=== PATIENT | female | born 1930 | race Caucasian/White ===

== ENCOUNTER 2017-06-12 10:18 | Emergency (ER) | payer MEDICARE, OTHER ==
[2017-06-12 11:08] LABS: BASOPHILS # (AUTO) 0.1 10^3/uL (0.0-0.1); EOSINOPHILS # (AUTO) 0.1 10^3/uL (0.0-0.7); EOSINOPHILS % (AUTO) 0.9 %; HGB - HEMOGLOBIN 14.2 g/dL (12.0-16.0); LYMPHOCYTES # (AUTO) 1.4 10^3/uL (1.5-3.5); LYMPHOCYTES % (AUTO) 21.3 %; MEAN CORPUSCULAR HEMOGLOBIN 30.7 pg (27.0-31.0); MEAN CORPUSCULAR HGB CONC 33.3 g/dL (32.0-36.0); MEAN CORPUSCULAR VOLUME 92.2 fL (81.0-99.0); MEAN PLATELET VOLUME 7.9 fL (7.9-10.8); MONOCYTES # (AUTO) 0.6 10^3/uL (0.0-1.0); MONOCYTES % (AUTO) 9.5 %; NEUTROPHILS # (AUTO) 4.5 10^3/uL (1.5-6.6); NEUTROPHILS % (AUTO) 67.3 %; PLT - PLATELET COUNT 275 10^3/uL (130-450); RED BLOOD COUNT 4.63 10^6/uL (4.20-5.40); RED CELL DISTRIBUTION WIDTH 13.7 % (12.0-15.0); WHITE BLOOD COUNT 6.7 x10^3/uL (4.8-10.8)
[2017-06-12 11:21] LABS: ALBUMIN 4.9 g/dL (3.2-5.5); ALBUMIN/GLOBULIN RATIO 1.6 (1.0-2.2); BILIRUBIN,TOTAL 0.8 mg/dL (0.2-1.0); CALCIUM 9.9 mg/dL (8.5-10.3); CREATININE 1.1 mg/dL (0.4-1.0); TOTAL PROTEIN 7.9 g/dL (6.7-8.2)
--- NOTE | 2017-06-12 11:21 | ED Physician Documentation ---
History of Present Illness - Stated complaint Stated Complaint: CHEST PX/BK PX - Chief complaint Chief Complaint: General - History obtained from History obtained from: Patient - History of Present Illness Timing: How many days ago (4) - Additonal information Additional information: The patient is an 87-year-old female who complains of lower back pain and right- sided chest discomfort that started 4 days ago when she was making her bed, reaching and bending over. The pain in her lower back is similar to when she had a lumbar compression fracture 3 years ago. She has been using Tylenol Extra Strength without relief. This morning she took 2 Aleve, and feels better now. She denies fever, cough or shortness of breath, abdominal pain, nausea or vomiting, numbness or weakness. Review of Systems Constitutional: denies: Fever Nose: denies: Congestion Throat: denies: Sore throat Cardiac: reports: Chest pain / pressure (Right sided chest discomfort.). denies : Palpitations Respiratory: denies: Dyspnea, Cough GI: denies: Abdominal Pain, Nausea, Vomiting : denies: Dysuria Skin: denies: Rash Musculoskeletal: reports: Back pain (Lower back.). 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 Cardiovascular: Other HEENT: Tonsil/Adenoidectomy - Present Medications Home Medications: Ambulatory Orders Medication Instructions Recorded Confirmed No Known Home Medications [No 06/12/17 06/12/17 Known Home Medications] - Allergies Allergies/Adverse Reactions: Allergies Allergy/AdvReac Type Severity Reaction Status Date / Time Sulfa (Sulfonamide Allergy Unknown Verified 06/12/17 10:34 Antibiotics) morphine AdvReac Nausea Verified 06/12/17 10:34 green veggies Allergy Unknown Uncoded 06/12/17 10:34 - Social History Does the pt smoke?: No Smoking Status: Former smoker Does the pt drink ETOH?: Yes Does the pt have substance abuse?: No - Immunizations Immunizations are current?: Yes - POLST Patient has POLST: No PD ED PE NORMAL - Vitals Vital signs reviewed: Yes (systolic hypertension.) - General General: Alert and oriented X 3, Well developed/nourished - HEENT HEENT: Atraumatic, Moist mucous membranes - Neck Neck: No bony TTP, No adenopathy, No JVD - Cardiac Cardiac: RRR - Respiratory Respiratory: No respiratory distress, Clear bilaterally, Other (Tenderness to palpation of the right lower chest wall in the anterior axillary line.) - Abdomen Abdomen: Soft, Non tender - Back Back: No CVA TTP, Other (Mild tenderness to palpation over the lower lumbar spine.) - Derm Derm: No rash - Extremities Extremities: No edema, No calf tenderness / cord - Neuro Neuro: Alert and oriented X 3, No motor deficit, No sensory deficit Results - Vitals Vitals: Oxygen O2 Source Room air - EKG (time done) 10:28 Rate: Rate (enter#) (66) Rhythm: NSR Tyler: Normal Intervals: Normal FL Ischemia: Q waves (in leads II, III, and aVF, 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.) Compare to prior EKG: Old EKG unavailable Computer interpretation: Agree with computer - Labs Labs: Laboratory Tests 06/12/17 06/12/17 06/12/17 10:40 10:40 10:40 WBC 6.7 RBC 4.63 Hgb 14.2 Hct 42.7 MCV 92.2 MCH 30.7 MCHC 33.3 RDW 13.7 Plt Count 275 MPV 7.9 Neut # 4.5 Lymph # 1.4 L Cotton # 0.6 Eos # 0.1 Baso # 0.1 Absolute Nucleated RBC 0.00 Nucleated RBC % 0.0 Sodium 137 Potassium 4.0 Chloride 101 Carbon Dioxide 24 Anion Gap 12.0 BUN 22 H Creatinine 1.1 H Estimated GFR (MDRD) 47 L Glucose 120 H Calcium 9.9 Total Bilirubin 0.8 AST 21 ALT 17 Alkaline Phosphatase 71 Troponin I < 0.04 Total Protein 7.9 Albumin 4.9 Globulin 3.0 Albumin/Globulin Ratio 1.6 Lipase 39 - Rads (name of study) Lumbar Spine Radiology: Prelim report reviewed, EMP read contemporaneously, See rad report (1 ) Mild L5 compression fracture. Increased density may indicate subacute fracture. 2) Chronic T12 and L2 mild compression fractures, as seen on prior exam. 3) Diffuse osteopenia. 4) Lower lumbar spine degenerative changes.) CXR Radiology: Prelim report reviewed, EMP read contemporaneously, See rad report ( Exam is concerning for COPD with prominent lung volumes and coarse interstitial markings. No consolidation evident.) PD MEDICAL DECISION MAKING - ED course Complexity details: reviewed old records, reviewed results, re-evaluated patient , considered differential, d/w patient, d/w family ED course: The patient's presentation is consistent with an L5 vertebral compression fracture, which is seen on x-ray examination. There is less than one third loss of vertebral body height. Chest x-ray reveals no evidence of pulmonary infiltrate, pneumothorax, and no rib fracture is detected. Her electrocardiogram reveals no acute ischemic abnormalities, and troponin is normal. I discussed with the patient and her the results of the imaging studies , symptomatic treatment and outpatient follow-up, as well as potentially worrisome signs or symptoms that should prompt reevaluation in the emergency department. Departure - Departure Disposition: 01 Home, Self Care Clinical Impression: Right-sided chest wall pain Compression fracture of L5 lumbar vertebra Qualifiers: Encounter type: initial encounter Fracture type: closed Qualified Code(s): S32.050A - Wedge compression fracture of fifth lumbar vertebra, initial encounter for closed fracture Condition: Stable Instructions: ED Fx Comp Vertebral Follow-Up: Rubina Bosch MD [Primary Care Provider] - Comments: You can use Aleve, 1 tablet every 12 hours if needed for pain. Let pain be your guide to activity level. Follow up with your primary physician within 1-2 weeks. Call to schedule appointment. Return to the emergency department if you develop increasing chest pain, increasing back pain, or otherwise worsening symptoms. Discharge Date/Time: 06/12/17 13:42
--- NOTE | 2017-06-12 12:40 | XRAY Report ---
EXAM: CHEST RADIOGRAPHY EXAM DATE: 06/12/2017 12:24 PM. CLINICAL HISTORY: Chest Pain. COMPARISON: None. TECHNIQUE: 2 views. FINDINGS: Lungs/Pleura: No focal opacities evident. No pleural effusion. No pneumothorax. Prominent lung volume s. Coarsened interstitial markings. Mediastinum: Mild atherosclerotic aortic calcifications. Other: Diffuse osteopenia. Thoracolumbar junction compression fractures. Mild convex right thoracolum bar scoliosis. IMPRESSION: 1. Exam is concerning for COPD with prominent lung volumes and coarse interstitial markings. 2. No consolidation evident. [facility] Referring Provider Line: [phone] SITE ID: [id number]
--- NOTE | 2017-06-12 13:12 | XRAY Report ---
EXAM: LUMBOSACRAL SPINE RADIOGRAPHY EXAM DATE: 06/12/2017 12:25 PM. CLINICAL HISTORY: Low back pain. COMPARISONS: 09/02/2014. TECHNIQUE: 3 views. FINDINGS: Alignment: Mild convex right thoracolumbar scoliosis. Bones: Five [id number] lumbar vertebral bodies are present. Diffuse osteopenia. Mild T12 and L2 compression fractures. Mild loss of L5 vertebral body height may be from subacute fracture. Disks: Moderate loss of L4-L5 and L5-S1 disk space height. Mild loss of disk space height within sean tiffanie of lumbar spine. Facets: Hypertrophic changes at L4-L5 and L5-S1 levels. Sacroiliac Joints: Unremarkable. Soft Tissues: Dense atherosclerotic abdominal aortic calcifications. IMPRESSION: 1. Mild L5 compression fracture. Increased density may indicate subacute fracture. 2. Chronic T12 and L2 mild compression fractures, as on prior exam. 3. Diffuse osteopenia. 4. Lower lumbar spine degenerative changes. [facility] Referring Provider Line: [phone] SITE ID: [id number]
[2017-06-12 13:42] VITALS: BP 164/77
== END 2017-06-12 13:42 | disposition home or self-care (01) ==
LOC: ED 10:18
DX: R07.89 Other chest pain (principal); S32.050A Wedge compression fracture of fifth lumbar vertebra, initial encounter for closed fracture; X50.9XXA Other and unspecified overexertion or strenuous movements or postures, initial encounter; Y93.E9 Activity, other interior property and clothing maintenance; R94.31 Abnormal electrocardiogram [ECG] [EKG]; Z87.891 Personal history of nicotine dependence
CPT/HCPCS: 36415; 71046; 72100; 80053; 83690; 84484; 85025; 93005; 99283

== ENCOUNTER 2017-08-16 06:55 | Emergency (ER) | payer MEDICARE, OTHER ==
--- NOTE | 2017-08-16 07:43 | ED Physician Documentation ---
PD HPI BACK INJURY - Stated complaint Stated Complaint: BACK INJ - History obtained from History obtained from: Patient, Family () - History of Present Illness Location: Lower Type of injury: Twist (lifting slightly heavy, about 20-25 lbs (had been limiting to under 15 since lumbar fx in May, but had been feeling better). Onset of lumbar pain and has persisted since Sunday. Poor sleep due to it. Feeling of some heaviness in left leg but no numbness per se. No incontinence. Pain does go down left leg posteriorly at times.). No: Fall Where injury occurred: Home Timing - onset: How many days ago (5) Timing - duration: Days (5) Timing - details: Abrupt onset, Still present, Waxing and waning Quality: Pain, Sharp Improved by: Rest. No: Meds (tylenol and iburpofen) Worsened by: Moving Associated symptoms: No: Fever, Weakness, Numbness, Incontinent of urine Contributing factors: Other injury (had compression fx L5 in May and had back brace PRN, but did not use it much as made it feel worse. Prior L2 compression fx as well.). No: Anticoagulated, Prior back surgery Similar symptoms before: Diagnosis (lumbar compression fractures.) Review of Systems Constitutional: denies: Fever, Chills Cardiac: denies: Chest pain / pressure, Palpitations Respiratory: denies: Dyspnea, Cough GI: denies: Abdominal Pain, Nausea, Vomiting, Diarrhea Skin: denies: Rash, Lesions Musculoskeletal: reports: Neck pain (chronic), Back pain (the past 3 months, worse again the past 5 days.) Neurologic: denies: Generalized weakness, Focal weakness, Numbness, Near syncope PD PAST MEDICAL HISTORY - Past Medical History Past Medical History: Yes Cardiovascular: Murmur, Arrhythmia Respiratory: None Endocrine/Autoimmune: None GI: GERD : Incontinence HEENT: None Psych: Depression Musculoskeletal: Osteoarthritis, Osteoporosis Derm: None - Past Surgical 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 Cardiovascular: Other HEENT: Tonsil/Adenoidectomy - Present Medications Home Medications: Ambulatory Orders Medication Instructions Recorded Confirmed Calcitonin [Fortical] 1 sprays SALEEM DAILY #1 bottle 08/16/17 Naproxen 375 mg PO BID #20 tablet 08/16/17 Ondansetron Odt [Zofran] 4 mg TL Q6H PRN #15 tablet 08/16/17 oxyCODONE [Roxicodone] 5 mg PO Q4-6H PRN #20 tablet 08/16/17 - Allergies Allergies/Adverse Reactions: Allergies Allergy/AdvReac Type Severity Reaction Status Date / Time Sulfa (Sulfonamide Allergy Unknown Verified 08/16/17 07:11 Antibiotics) morphine AdvReac Nausea Verified 08/16/17 07:11 green veggies Allergy Unknown Uncoded 06/12/17 10:34 - Social History Does the pt smoke?: No Smoking Status: Never smoker Does the pt drink ETOH?: Yes Does the pt have substance abuse?: No - Immunizations Immunizations are current?: Yes - POLST Patient has POLST: No PD ED PE NORMAL - Vitals Vital signs reviewed: Yes - General General: Alert and oriented X 3, No acute distress, Well developed/nourished - Neck Neck: Supple, no meningeal sign, No adenopathy - Cardiac Cardiac: RRR, No murmur - Respiratory Respiratory: Clear bilaterally - Abdomen Abdomen: Normal bowel sounds, Soft, Non tender - Back Back: No CVA TTP, Other (tender around lower lumbar spine. No rash nor sores. No redness. ) - Derm Derm: Normal color, Warm and dry, No rash - Extremities Extremities: No tenderness to palpate, Normal ROM s pain, No calf tenderness / cord, Other (minimal edema in left lower leg and ankle. Not tender. ) - Neuro Neuro: Alert and oriented X 3, No motor deficit, No sensory deficit, Normal speech - Psych Psych: Normal mood, Normal affect Results - Vitals Vitals: Vital Signs - 24 hr 08/16/17 08/16/17 07:03 10:15 Temperature 36.7 C Heart Rate 75 75 Respiratory 18 16 Rate Blood Pressure 150/97 H 144/88 H O2 Saturation 100 Oxygen O2 Source Room air - Labs Labs: Laboratory Tests 08/16/17 10:03 Urine Color YELLOW Urine Clarity HAZY Urine pH 7.0 Ur Specific Lee <=1.005 Urine Protein NEGATIVE Urine Glucose (UA) NEGATIVE Urine Ketones NEGATIVE Urine Occult Blood NEGATIVE Urine Nitrite NEGATIVE Urine Bilirubin NEGATIVE Urine Urobilinogen 0.2 (NORMAL) Ur Leukocyte Esterase SMALL H Urine RBC 0-5 Urine WBC 11-25 H Ur Squamous Epith Cells FEW Squamous Urine Bacteria Many H Ur Microscopic Review INDICATED Urine Culture Comments INDICATED - Rads (name of study) lumbar CT Radiology: Prelim report reviewed (L5 prior fracture appears stable. L2 worsened compressive deformity c/w new fracture compared to prior films. ), EMP read contemporaneously PD MEDICAL DECISION MAKING - ED course Complexity details: re-evaluated patient (feeling improved after meds; has TLSO brace at home from prior fx. She feels functional enough to go home. ), considered differential, d/w patient - Sepsis Event Vital Signs: Vital Signs - 24 hr 08/16/17 08/16/17 07:03 10:15 Temperature 36.7 C Heart Rate 75 75 Respiratory 18 16 Rate Blood Pressure 150/97 H 144/88 H O2 Saturation 100 Oxygen O2 Source Room air Departure - Departure Disposition: 01 Home, Self Care Clinical Impression: Compression fracture of L2 lumbar vertebra Qualifiers: Encounter type: initial encounter Fracture type: closed Qualified Code(s): S32.020A - Wedge compression fracture of second lumbar vertebra, initial encounter for closed fracture Condition: Stable Record reviewed to determine appropriate education?: Yes Instructions: ED Fx Comp Vertebral Follow-Up: Rubina Bosch MD [Primary Care Provider] - Prescriptions: Calcitonin [Fortical] 1 sprays SALEEM DAILY #1 bottle Naproxen 375 mg PO BID #20 tablet Ondansetron Odt [Zofran] 4 mg TL Q6H PRN #15 tablet PRN Reason: Nausea / Vomiting oxyCODONE [Roxicodone] 5 mg PO Q4-6H PRN #20 tablet PRN Reason: Pain Comments: Stay well-hydrated. Activity as able. Use your prior back brace if it makes it feel more comfortable. You do not have to have it on. Naproxen twice daily with food to help with pain. Add Tylenol and/or oxycodone as needed for pains. Also use the calcitonin nasal spray daily for the next 4 weeks to try to hasten the healing of this. Follow-up with your primary care early next week, call for an appointment. Ondansetron if needed for nausea. Your L2 vertebra appears more compressed on x-ray than it had on previous images supporting the idea of a new compression fracture they are. The prior L5 vertebra height appears stable and assumedly healed. Discharge Date/Time: 08/16/17 10:25
[2017-08-16] MEDS: ACETAMINOPHEN 325 MG TABLET PO STA (08:21)
[2017-08-16] MEDS: oxyCODONE 5 MG TABLET PO STA (08:21)
--- NOTE | 2017-08-16 09:10 | CT Report ---
Procedure Date: 08/16/2017 Accession Number: [id number] / [id number] Procedure: CT - Lumbar Spine W/O CPT Code: FULL RESULT: EXAM: CT LUMBAR SPINE WITHOUT CONTRAST EXAM DATE: 08/16/2017 08:42 AM. CLINICAL HISTORY: Lumbar compress fx May; pain again with lifting. COMPARISONS: Lumbar spine radiography 06/16/2017. Lumbar spine CT 07/25/2014. TECHNIQUE: Thin-section axial images were acquired of the lumbar spine from T12 to S1 without contrast. Post-processing: Coronal and sagittal reformats. Other: None. In accordance with CT protocol optimization, one or more of the following dose reduction techniques were utilized for this exam: automated exposure control, adjustment of mA and/or KV based on patient size, or use of iterative reconstructive technique. FINDINGS: Alignment: No spondylolisthesis or significant scoliosis. Bones: Five [id number] lumbar vertebral bodies are present. Extensive, diffuse demineralization. New compression fracture of the L2 vertebral body with 50-75 percent loss of height centrally. Compression fracture with 50-75 percent loss of height of the L5 vertebral body has progressed compared to prior. Disk Levels/Facets: Mild to moderate multilevel decreased disk height and facet arthropathy as before. Other: Mild infrarenal abdominal aortic aneurysm which measures up to 3.2 cm in diameter, just above the bifurcation (previously 3.1 cm in 2015). IMPRESSION: 1. Compression fracture of the L2 vertebral body with 50-75% loss of height is new from May and likely acute. 2. Compression fracture of the L5 vertebral body with increased loss of height compared to prior. [facility]
[2017-08-16 10:23] LABS: BILIRUBIN,URINE NEGATIVE (NEGATIVE); GLUCOSE, URINE (UA) NEGATIVE (NEGATIVE); KETONES,URINE (UA) NEGATIVE (NEGATIVE); LEUKOCYTE ESTERASE, URINE SMALL (NEGATIVE); NITRITE,URINE NEGATIVE (NEGATIVE); OCCULT BLOOD,URINE NEGATIVE (NEGATIVE); PROTEIN,URINE NEGATIVE (NEGATIVE); UROBILINOGEN,URINE 0.2 (NORMAL) E.U./dL (NORMAL)
[2017-08-16 10:27] LABS: CLARITY,URINE HAZY (CLEAR)
[2017-08-16 10:47] LABS: BACTERIA,URINE Many /HPF (None Seen); RBC,URINE 0-5 /HPF (0-5); SQUAMOUS EPITHELIAL CELL,UR FEW Squamous (<= Few)
[2017-08-16 10:48] VITALS: BP 144/88
== END 2017-08-16 10:25 | disposition home or self-care (01) ==
LOC: ED 06:55
DX: S32.020A Wedge compression fracture of second lumbar vertebra, initial encounter for closed fracture (principal); S32.050A Wedge compression fracture of fifth lumbar vertebra, initial encounter for closed fracture; X50.0XXA Overexertion from strenuous movement or load, initial encounter; Y92.009 Unspecified place in unspecified non-institutional (private) residence as the place of occurrence of the external cause; R01.1 Cardiac murmur, unspecified; K21.9 Gastro-esophageal reflux disease without esophagitis
CPT/HCPCS: 72131; 81001; 81003; 87077; 87086; 87181; 99283; 99284

== ENCOUNTER 2017-09-13 10:18 | Emergency (ER) | payer MEDICARE, OTHER ==
[2017-09-13 11:08] LABS: BILIRUBIN,URINE NEGATIVE (NEGATIVE); GLUCOSE, URINE (UA) NEGATIVE (NEGATIVE); KETONES,URINE (UA) TRACE mg/dL (NEGATIVE); LEUKOCYTE ESTERASE, URINE MODERATE (NEGATIVE); NITRITE,URINE NEGATIVE (NEGATIVE); OCCULT BLOOD,URINE LARGE (NEGATIVE); PROTEIN,URINE 100 mg/dL (NEGATIVE); UROBILINOGEN,URINE 1 (NORMAL) E.U./dL (NORMAL)
[2017-09-13 11:11] LABS: CLARITY,URINE CLOUDY (CLEAR); RBC,URINE TNTC /HPF (0-5); SQUAMOUS EPITHELIAL CELL,UR FEW Squamous (<= Few); WBC CLUMPS,URINE PRESENT
[2017-09-13 11:12] LABS: BACTERIA,URINE Many /HPF (None Seen)
[2017-09-13] MEDS ORDERED: cefTRIAXone 1 GM in SODIUM CHLORIDE 0.9% MINIBAG 100 ML IV STA (13:47)
[2017-09-13] MEDS ORDERED: ACETAMINOPHEN 325 MG TABLET PO STA (13:49)
[2017-09-13] MEDS ORDERED: LIDOCAINE PATCH 5% TOP PRN (13:49)
[2017-09-13 14:14] LABS: BASOPHILS # (AUTO) 0.1 10^3/uL (0.0-0.1); BASOPHILS % (AUTO) 0.6 %; EOSINOPHILS % (AUTO) 0.2 %; HGB - HEMOGLOBIN 12.9 g/dL (12.0-16.0); LYMPHOCYTES # (AUTO) 1.2 10^3/uL (1.5-3.5); LYMPHOCYTES % (AUTO) 11.2 %; MEAN CORPUSCULAR HEMOGLOBIN 31.2 pg (27.0-31.0); MEAN CORPUSCULAR HGB CONC 33.4 g/dL (32.0-36.0); MEAN CORPUSCULAR VOLUME 93.4 fL (81.0-99.0); MEAN PLATELET VOLUME 7.5 fL (7.9-10.8); MONOCYTES # (AUTO) 1.1 10^3/uL (0.0-1.0); MONOCYTES % (AUTO) 9.6 %; NEUTROPHILS # (AUTO) 8.7 10^3/uL (1.5-6.6); NEUTROPHILS % (AUTO) 78.4 %; PLT - PLATELET COUNT 308 10^3/uL (130-450); RED BLOOD COUNT 4.13 10^6/uL (4.20-5.40); WHITE BLOOD COUNT 11.1 x10^3/uL (4.8-10.8)
[2017-09-13 14:41] LABS: CALCIUM 9.5 mg/dL (8.5-10.3); CREATININE 0.9 mg/dL (0.4-1.0)
[2017-09-13 14:52] VITALS: BP 145/57
--- NOTE | 2017-09-13 14:56 | CT Report ---
Procedure Date: 09/13/2017 Accession Number: [id number] / [id number] Procedure: CT - Abdomen/Pelvis W/O CPT Code: FULL RESULT: EXAM: CT ABDOMEN AND PELVIS (CT KUB) EXAM DATE: 09/13/2017 02:27 PM. CLINICAL HISTORY: Flank pain hematuria concern for infected stone. COMPARISONS: CT lumbar spine 08/16/2017 , CT abdomen pelvis 09/05/2010. TECHNIQUE: Routine axial helical CT imaging was performed through the abdomen and pelvis without IV contrast. Reconstructions: Coronal and sagittal. In accordance with CT protocol optimization, one or more of the following dose reduction techniques were utilized for this exam: automated exposure control, adjustment of mA and/or KV based on patient size, or use of iterative reconstructive technique. FINDINGS: Lung Bases: Mild wispy bibasilar atelectasis. Right Kidney/Ureter: Moderate right renal atrophy, as before. New severe right hydronephrosis and moderate proximal hydroureter. 1 mm upper pole and 1 mm mid pole right renal calculi. No ureteral calculus is identified. Left Kidney/Ureter: 3 x 2 mm upper pole calculus. No ureteral calculus. No hydronephrosis or hydroureter. Circumscribed rounded hypodensities consistent with cortical cysts, increased from before, now approximately 1.4 cm lateral midpole, 1.9 cm anterior lower pole, 1.1 cm posterior lower pole. Other Solid Organs: Punctate calcified granulomata in the lateral left lobe and posterior right lobe of the liver. Pancreas, spleen, and adrenal glands are grossly unremarkable on noncontrast CT. Gallbladder/Bile Ducts: Unremarkable. Peritoneal Cavity: Unopacified stomach is nondistended. There is mild dilation of the third portion of the duodenum. Jejunum and ilium are nondilated. The appendix is not clearly identified. There is a small amount of formed stool in the colon. There is no pericolonic fat stranding. There is no lymphadenopathy, ascites, or pneumoperitoneum. Pelvic Organs: Bladder normal in size. There is a 2 cm periureteral (Hutch) diverticulum on the left and there are no bladder calculi. There is no perivesical edema. Uterus is not enlarged. No gross adnexal masses. Vasculature: 3 vessel coronary artery calcification. Moderate aortoiliac atherosclerotic calcification. 3.2 cm fusiform ectasia of the distal infrarenal abdominal aorta, previously 2.6 cm. Other: Body wall is unremarkable. Bones appear diffusely osteopenic. Mild anterior superior T12, moderate central superior and inferior endplate L2, moderate central superior endplate L5 compression deformities, unchanged from 08/08/2017. Moderate bilateral L4-L5 and L5-S1 facet osteoarthritis. IMPRESSION: 1. Moderate right renal cortical atrophy, as before. 2. Severe right hydronephrosis and moderate proximal right hydroureter, new. 3. 2 tiny right intrarenal calculi. No ureteral calculus is identified. 4. Small nonobstructing upper pole left renal calculus. 5. 2 cm left Hutch bladder diverticulum. No bladder calculi. 6. 3.2 cm fusiform ectasia of the distal infrarenal abdominal aorta, increased. Moderate aortoiliac atherosclerotic calcification. 7. Three-vessel coronary artery calcification. [facility]
--- NOTE | 2017-09-13 15:27 | ED Physician Documentation ---
History of Present Illness - Stated complaint Stated Complaint: KIDNEY PX - Chief complaint Chief Complaint: General - Additonal information Additional information: hx from pt somewhat rambling hx seems she has prior L spine fx and several days ago her back pain radiated into the RLE but not now but what she is here for is severe R flank pain and dark urine and chills no fever > 101 but states she was 99 which is high for her no NVD she saw her PMD for the same sx and her urine was + and she was prescribed an antibiotic with a long name she is still having sx pain is fairly severe otherwise healthy - states no cardiac pulm etc Review of Systems Constitutional: reports: Chills. 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 Cardiovascular: Other HEENT: Tonsil/Adenoidectomy - Present Medications Home Medications: Ambulatory Orders Medication Instructions Recorded Confirmed Calcitonin [Fortical] 1 sprays SALEEM DAILY #1 bottle 08/16/17 Naproxen 375 mg PO BID #20 tablet 08/16/17 Ondansetron Odt [Zofran] 4 mg TL Q6H PRN #15 tablet 08/16/17 oxyCODONE [Roxicodone] 5 mg PO Q4-6H PRN #20 tablet 08/16/17 - Allergies Allergies/Adverse Reactions: Allergies Allergy/AdvReac Type Severity Reaction Status Date / Time Sulfa (Sulfonamide Allergy Unknown Verified 09/13/17 10:35 Antibiotics) morphine AdvReac Nausea Verified 09/13/17 10:35 green veggies Allergy Unknown Uncoded 06/12/17 10:34 - Social History Does the pt smoke?: No Smoking Status: Never smoker Does the pt drink ETOH?: Yes Does the pt have substance abuse?: No - Immunizations Immunizations are current?: Yes - POLST Patient has POLST: No PD ED PE NORMAL - Vitals Vital signs reviewed: Yes - General General: Alert and oriented X 3 - Cardiac Cardiac: RRR - Respiratory Respiratory: No respiratory distress, Clear bilaterally - Abdomen Abdomen: Soft, Non tender - Back Back: Other (R CVA TTP) - Derm Derm: Normal color - Neuro Neuro: Alert and oriented X 3, Other (hip flex knee ext foot dorsi plantar and great toe ext intact, no clonus, neg SLR, denies numbness) Results - Vitals Vitals: Vital Signs - 24 hr 09/13/17 09/13/17 09/13/17 10:27 12:42 14:51 Temperature 36 C L 36.9 C Heart Rate 87 64 71 Respiratory 16 12 16 Rate Blood Pressure 105/79 150/56 H 145/57 H O2 Saturation 95 95 94 Oxygen O2 Source Room air - Labs Labs: Laboratory Tests 09/13/17 09/13/17 09/13/17 10:55 14:03 14:03 WBC 11.1 H RBC 4.13 L Hgb 12.9 Hct 38.6 MCV 93.4 MCH 31.2 H MCHC 33.4 RDW 13.0 Plt Count 308 MPV 7.5 L Neut # (Auto) 8.7 H Lymph # (Auto) 1.2 L [place] # (Auto) 1.1 H Eos # (Auto) 0.0 Baso # (Auto) 0.1 Absolute Nucleated RBC 0.00 Nucleated RBC % 0.0 Sodium 136 Potassium 4.5 Chloride 99 L Carbon Dioxide 24 Anion Gap 13.0 BUN 22 H Creatinine 0.9 Estimated GFR (MDRD) 60 L Glucose 105 H Calcium 9.5 Urine Color YELLOW Urine Clarity CLOUDY Urine pH 6.0 Ur Specific [place] 1.025 Urine Protein 100 H Urine Glucose (UA) NEGATIVE Urine Ketones TRACE Urine Occult Blood LARGE H Urine Nitrite NEGATIVE Urine Bilirubin NEGATIVE Urine Urobilinogen 1 (NORMAL) Ur Leukocyte Esterase MODERATE H Urine RBC TNTC H Urine WBC >25 H Urine WBC Clumps PRESENT Ur Squamous Epith Cells FEW Squamous Urine Bacteria Many H Ur Microscopic Review INDICATED Urine Culture Comments INDICATED - Rads (name of study) CT AP Radiology: See rad report (R renal atrophy as before (no prior CT AP that I can see), massive R hydro and mod R hydroureter, per verbal with rad diff to rule in or out urteral stone because of calcified iliac vessels but may have a 3-4 mm mid right ureral stone) CT IVP Radiology: Discussed with rads (3mm sotne R ureter at pelvic rim with high grade obstruction and no filling of the distal ureter - also baldder wall thickening c/w infection, no renal mass and an assortment of incidental findings such as bladder diverticulae, 3.3 cm infrarenal aneurym (pt advised of need for 16-12 m sono) ) PD MEDICAL DECISION MAKING - ED course ED course: + UA - gave rocephin CT shows large hydro, pt may have a 4 cm ureteral stone but the hyroureter transition point in near some heavily calcified iliac vessels so radiology cannot be sure given elderly pyelo and hydro + hematuria which strongly suggest a stone will discuss with urology and possible transfer pain better with tylenol and lido CT IVP shows a 3 mm stone with complete high grade obstruction at pelvic brim spoke to urology at [facility] Dr Franks who advises transfer for stone removal also spoke to hospitalist Dr Phillips - Sepsis Event Vital Signs: Vital Signs - 24 hr 09/13/17 09/13/17 09/13/17 10:27 12:42 14:51 Temperature 36 C L 36.9 C Heart Rate 87 64 71 Respiratory 16 12 16 Rate Blood Pressure 105/79 150/56 H 145/57 H O2 Saturation 95 95 94 Oxygen O2 Source Room air Departure - Departure Disposition: 02 Transfer Acute Care Hosp Clinical Impression: Hydronephrosis with renal and ureteral calculous obstruction UTI (urinary tract infection) Qualifiers: Urinary tract infection type: site unspecified Hematuria presence: with hematuria Qualified Code(s): N39.0 - Urinary tract infection, site not specified
[2017-09-13] MEDS ORDERED: IOPAMIDOL-300 100 ML VIAL ONE (17:19)
[2017-09-13] MEDS ORDERED: IOPAMIDOL-300 100 ML VIAL IVP ONE (18:12)
--- NOTE | 2017-09-13 18:54 | CT Report ---
Procedure Date: 09/13/2017 Accession Number: [id number] / [id number] Procedure: CT - IVP CPT Code: FULL RESULT: EXAM: CT ABDOMEN AND PELVIS WITHOUT AND WITH CONTRAST (CT IVP) EXAM DATE: 09/13/2017 05:54 PM. CLINICAL HISTORY: Right hydronephrosis. COMPARISONS: Same day CT KUB. CT lumbar spine without contrast 08/16/2017 and 07/25/2014. CT KUB 11/07/2008. CT of abdomen and pelvis with contrast 09/05/2010. TECHNIQUE: Routine helical imaging was performed through the kidneys, ureters and bladder in the delayed phase using split bolus technique as a noncontrast exam had already been performed earlier the same day. IV Contrast: Isovue 300 100 mL. Reconstructions: Coronal and sagittal. In accordance with CT protocol optimization, one or more of the following dose reduction techniques were utilized for this exam: automated exposure control, adjustment of mA and/or KV based on patient size, or use of iterative reconstructive technique. FINDINGS: Lung Bases: At least moderate centrilobular emphysema with minimal bibasilar atelectasis. Coronary artery and aortic valve calcifications noted. No mass, consolidation or effusion. Right Kidney/Ureter: Moderate right renal atrophy, dating back to at least 2008 CT, not significantly changed. As on same-day CT KUB, there is severe right hydroureteronephrosis which is new since recent lumbar spine CT from July. This appears to be due to an obstructing round 2 mm calculus near the level of the pelvic brim (3/39). Punctate nonobstructing right interpolar region calculus is obscured by minimal excreted contrast on this exam. No significant contrast filling the renal collecting system and no contrast within the renal pelvis or ureter due to the high-grade obstruction. No evidence of a renal or ureteral mass however. There is mild urothelial enhancement of the renal pelvis and visualized proximal ureter suggesting urinary tract infection. There is a mildly delayed right nephrogram. No evidence of renal abscess. No definite CT evidence of pyelonephritis, though sensitivity reduced due to the delayed nephrogram. Scattered subcentimeter hypodensities are similar to remote 2010 exam, suggestive of cysts. Left Kidney/Ureter: No hydronephrosis or mass. Renal cysts again noted. The nonobstructing 3 mm upper pole calculus is obscured by excreted contrast. Other Solid Organs: There are a few punctate calcified granulomata as well as scattered subcentimeter hypodense lesions within the liver, the latter likely cysts or hemangiomata, not definitely changed since 2011 exam. The spleen, pancreas and adrenal glands are unremarkable. Gallbladder is within normal limits.The bile ducts are unremarkable. Peritoneal Cavity/Bowel: No evidence of bowel obstruction or inflammation. No free fluid or free air. Appendix is not visualized. No abnormally enlarged lymph nodes. Pelvic Organs: No urinary bladder calculi. Possible mild bladder wall thickening with possible minimal urothelial enhancement. Small bilateral wide-necked bladder diverticuli present near the UVJ. Mild irregularity of the posterior bladder wall, possibly trabeculation though mass not excluded. Uterus appears retroflexed but within normal limits. No adnexal mass demonstrated. Vasculature: Severe calcific atherosclerosis again noted. Fusiform infrarenal abdominal aortic aneurysm measures up to 3.2 cm. Bones: No acute osseous abnormality. There is diffuse osseous demineralization. Old moderate compression deformities of L5 and L2 again noted. Additional mild compression deformities present throughout the lower thoracic and lumbar spine. Other: None. IMPRESSION: 1. Severe right hydroureteronephrosis due to an obstructing 2 mm calculus in the distal ureter near the sacral promontory. This causes high-grade obstruction with a delayed nephrogram. 2. Mild right urothelial enhancement as well as probable mild wall thickening and bladder wall enhancement suggesting urinary tract infection/cystitis. No definite CT evidence of pyelonephritis, though evaluation limited due to delayed nephrogram on the right. No abscess demonstrated. 3. Additional punctate nonobstructing right and left renal calculi not visualized due to excreted contrast. There are bilateral renal cysts but no evidence of a renal mass. 4. Additional findings are unchanged in the short interval including 3.2 cm fusiform infrarenal abdominal aortic aneurysm, bilateral bladder diverticula, emphysema and additional findings as above. RADIA The above findings were discussed with Rehana Morton by Dr. Emir Valladares at 18:52 hrs on 09/13/17.
[2017-09-13] MEDS ORDERED: SODIUM CHLORIDE 0.9% 1,000 ML IV ONE (19:26)
[2017-09-13] MEDS ORDERED: DEXTROSE 5%-0.45% NACL 1,000 ML IV ONE (19:26)
== END 2017-09-13 21:13 | disposition short-term general hospital (02) ==
LOC: ED 10:18
DX: N13.2 Hydronephrosis with renal and ureteral calculous obstruction (principal); N39.0 Urinary tract infection, site not specified; I70.208 Unspecified atherosclerosis of native arteries of extremities, other extremity; N32.3 Diverticulum of bladder; I49.9 Cardiac arrhythmia, unspecified; K21.9 Gastro-esophageal reflux disease without esophagitis; M19.90 Unspecified osteoarthritis, unspecified site; M81.0 Age-related osteoporosis without current pathological fracture
CPT/HCPCS: 36415; 74176; 74178; 80048; 81001; 85025; 87086; 96361; 96365; 99284; A9270; Q9967; 81003

== ENCOUNTER 2017-09-13 20:55 | Outpatient (CLI) | payer MEDICARE, OTHER | END 2017-09-13 20:56 | disposition short-term general hospital (02) | LOC: EMS 20:55 | PROVIDERS: ATTEND Surgery | DX: N20.1 Calculus of ureter (principal) | CPT/HCPCS: A0170; A0425; A0426 ==

== ENCOUNTER 2018-08-23 14:50 | Outpatient (CLI) | payer MEDICARE, OTHER ==
--- NOTE | 2018-08-23 16:48 | Ultrasound Report ---
Reason: AAA Procedure Date: 08/23/2018 Accession Number: [id number] / [id number] Procedure: US - Retroperitoneal Limited CPT Code: FULL RESULT: EXAM: AORTIC DOPPLER ULTRASOUND EXAM DATE: 08/23/2018 03:45 PM. CLINICAL HISTORY: AAA; follow-up 3.2 cm aneurysm. COMPARISON: CT 09/13/2017. TECHNIQUE: Real-time sonographic imaging of retroperitoneal vascular structures, including color-flow, Doppler flow and spectral analysis was performed by the rpg programmer. Multiple technical sales representatives static images were saved for review. FINDINGS: Aorta: The abdominal aorta was adequately imaged. Measurements as follows: Proximal sagittal 2.7 cm Mid transverse 3 x 3.1 cm Distal transverse 2.9 x 3.6 cm. Dilatation extends over a distance of approximately 4.5 cm. Iliac Vessels: The imaged proximal common iliac arteries are normal in caliber. Right common iliac artery transverse plane 0.7 x 0.8 cm. Left common iliac artery transverse plane 0.8 x 0.8 cm. Other: None. IMPRESSION: Stable to minimally increased abdominal aortic aneurysm compared with 09/13/2017 CT. Maximal measurements currently 2.9 x 3.6 cm transverse. RADIA
== END 2018-08-23 14:51 | disposition home or self-care (01) ==
LOC: DI 14:50
PROVIDERS: ATTEND Internal Medicine
DX: I71.4 Abdominal aortic aneurysm, without rupture (principal)
CPT/HCPCS: 76775

== ENCOUNTER 2018-09-02 14:30 | Outpatient (CLI) | payer MEDICARE, OTHER ==
[2018-09-02 15:58] LABS: BASOPHILS # (AUTO) 0.1 10^3/uL (0.0-0.1); BASOPHILS % (AUTO) 0.8 %; EOSINOPHILS # (AUTO) 0.1 10^3/uL (0.0-0.7); EOSINOPHILS % (AUTO) 0.7 %; HGB - HEMOGLOBIN 13.5 g/dL (12.0-16.0); LYMPHOCYTES # (AUTO) 2.1 10^3/uL (1.5-3.5); LYMPHOCYTES % (AUTO) 28.2 %; MEAN CORPUSCULAR HEMOGLOBIN 30.5 pg (27.0-31.0); MEAN CORPUSCULAR VOLUME 95.3 fL (81.0-99.0); MEAN PLATELET VOLUME 9.3 fL (7.9-10.8); MONOCYTES # (AUTO) 0.6 10^3/uL (0.0-1.0); MONOCYTES % (AUTO) 7.8 %; NEUTROPHILS # (AUTO) 4.7 10^3/uL (1.5-6.6); NEUTROPHILS % (AUTO) 62.2 %; PLT - PLATELET COUNT 259 10^3/uL (130-450); RED BLOOD COUNT 4.43 10^6/uL (4.20-5.40); RED CELL DISTRIBUTION WIDTH 13.4 % (12.0-15.0); WHITE BLOOD COUNT 7.5 x10^3/uL (4.8-10.8)
[2018-09-02 16:00] LABS: BILIRUBIN,URINE NEGATIVE (NEGATIVE); GLUCOSE, URINE (UA) NEGATIVE (NEGATIVE); KETONES,URINE (UA) NEGATIVE (NEGATIVE); LEUKOCYTE ESTERASE, URINE TRACE (NEGATIVE); NITRITE,URINE NEGATIVE (NEGATIVE); OCCULT BLOOD,URINE NEGATIVE (NEGATIVE); PH,URINE 6.5 PH (5.0-7.5); PROTEIN,URINE NEGATIVE (NEGATIVE); UROBILINOGEN,URINE 1 (NORMAL) E.U./dL (NORMAL)
[2018-09-02 16:01] LABS: CLARITY,URINE CLEAR (CLEAR)
[2018-09-02 16:12] LABS: ALBUMIN 4.5 g/dL (3.2-5.5); ALBUMIN/GLOBULIN RATIO 1.7 (1.0-2.2); ALKALINE PHOSPHATASE 76 IU/L (42-121); ALT ALANINE AMINOTRANSFERASE 18 IU/L (10-60); AST ASPARTATE AMINOTRANSFERASE 22 IU/L (10-42); BILIRUBIN,TOTAL 0.5 mg/dL (0.2-1.0); BUN - BLOOD UREA NITROGEN 29 mg/dL (6-20); CALCIUM 9.8 mg/dL (8.5-10.3); CARBON DIOXIDE - CO2 25 mmol/L (21-32); CHLORIDE 104 mmol/L (101-111); CREATININE 0.9 mg/dL (0.4-1.0); GFR - MDRD 59 (>89); GLUCOSE 101 mg/dL (70-100); SODIUM 141 mmol/L (135-145); TOTAL PROTEIN 7.2 g/dL (6.7-8.2)
[2018-09-02 16:20] LABS: CRP - C-REACTIVE PROTEIN < 1.0 mg/dL (0-1.0)
[2018-09-02 16:23] LABS: BACTERIA,URINE None Seen /HPF (None Seen); RBC,URINE None Seen /HPF (0-5); SQUAMOUS EPITHELIAL CELL,UR NONE SEEN (<= Few)
--- NOTE | 2018-09-03 11:40 | XRAY Report ---
Reason: FEVER Procedure Date: 09/02/2018 Accession Number: [id number] / [id number] Procedure: XR - Chest 2 View X-Ray CPT Code: 42570 FULL RESULT: EXAM: CHEST RADIOGRAPHY EXAM DATE: 09/02/2018 02:51 PM. CLINICAL HISTORY: Fever. COMPARISON: CHEST 2 VIEW 06/12/2017 11:17 AM. TECHNIQUE: 2 views. FINDINGS: Lungs/Pleura: Bilateral moderate to severe emphysematous lungs without new focal opacities evident. The coarse linear opacities in the posterior basal right lower lung zone again noted, without significant interval changes, likely a small atelectasis or scarring. No pleural effusion. No pneumothorax. Mediastinum: Heart and mediastinal contours are unremarkable. Other: There is moderate anterior compression fracture at the T12 and L2 again noted, without significant interval changes. IMPRESSION: COPD. Negative for new pulmonary opacity or acute cardiopulmonary process. RADIA
== END 2018-09-02 14:31 | disposition home or self-care (01) ==
LOC: DI 14:30
PROVIDERS: ATTEND Internal Medicine
DX: J44.9 Chronic obstructive pulmonary disease, unspecified (principal); R50.9 Fever, unspecified; N20.0 Calculus of kidney; N13.30 Unspecified hydronephrosis; R10.9 Unspecified abdominal pain; R14.0 Abdominal distension (gaseous)
CPT/HCPCS: 36415; 71046; 80053; 81001; 81003; 85025; 85651; 86140; 87040; 87086

== ENCOUNTER 2019-09-09 12:34 | Outpatient (CLI) | payer MEDICARE, OTHER ==
--- NOTE | 2019-09-09 13:32 | Ultrasound Report ---
PROCEDURE: Retroperitoneal INDICATIONS: KIDNEY STONES TECHNIQUE: Real-time scanning was performed of the retroperitoneal organs, with image documentation. COMPARISON: None. FINDINGS: Kidneys: Kidneys are normal in size. Right kidney measures 7.6 cm long; left kidney measures 12.6 c m long. Right renal cortical thickness is 0.4 cm; left renal cortical thickness is 1.6 cm. No solid masses, hydronephrosis, or nephrolithiasis. Left renal stones are noted, the largest measruring 7 m m. Left renal cysts are noted, largest measuring1.5 cm. Pancreas: Visualized portions of the pancreas are sonographically normal. Aorta: Visualized aorta is normal in caliber at 3 cm or less. Iliac arteries: Proximal common iliac arteries are normal in caliber at 2.5 cm or less. IVC: Intrahepatic inferior vena cava is patent. Miscellaneous: No free abdominal fluid. Bladder: Prevoid volume 64 ml. Post void residual 19 ml. Bilateral ureteral jets are noted. IMPRESSION: 1. Nonobstructing left renal calculi. Reviewed by: Catrachita Cueto MD on 09/09/2019 1:30 PM PDT Approved by: Catrachita Cueto MD on 09/09/2019 1:30 PM PDT Station ID: [id number]
== END 2019-09-09 12:35 | disposition home or self-care (01) ==
LOC: DI 12:34
PROVIDERS: ATTEND Urology
DX: N20.0 Calculus of kidney (principal)
CPT/HCPCS: 76770

== ENCOUNTER 2021-05-23 13:57 | Outpatient (CLI) | payer MEDICARE, OTHER | END 2021-05-23 13:58 | disposition critical access hospital (66) | LOC: EMS 13:57 | DX: M25.552 Pain in left hip (principal); W01.0XXA Fall on same level from slipping, tripping and stumbling without subsequent striking against object, initial encounter; Y92.009 Unspecified place in unspecified non-institutional (private) residence as the place of occurrence of the external cause | CPT/HCPCS: A0425; A0427 ==

== ENCOUNTER 2021-05-23 14:18 | Inpatient (IN) | payer MEDICARE, OTHER ==
[2021-05-23] MEDS ORDERED: SODIUM CHLORIDE 0.9% 1,000 ML IV STA (14:35)
[2021-05-23 14:46] LABS: BASOPHILS % (AUTO) 0.2 %; HCT - HEMATOCRIT 42.5 % (37.0-47.0); HGB - HEMOGLOBIN 14.3 g/dL (12.0-16.0); LYMPHOCYTES # (AUTO) 0.5 10^3/uL (1.5-3.5); LYMPHOCYTES % (AUTO) 3.6 %; MEAN CORPUSCULAR HGB CONC 33.6 g/dL (32.0-36.0); MEAN PLATELET VOLUME 9.6 fL (7.9-10.8); MONOCYTES # (AUTO) 0.9 10^3/uL (0.0-1.0); NEUTROPHILS # (AUTO) 11.7 10^3/uL (1.5-6.6); NEUTROPHILS % (AUTO) 88.7 %; PLT - PLATELET COUNT 284 10^3/uL (130-450); RED BLOOD COUNT 4.62 10^6/uL (4.20-5.40); RED CELL DISTRIBUTION WIDTH 12.7 % (12.0-15.0); WHITE BLOOD COUNT 13.2 x10^3/uL (4.8-10.8)
[2021-05-23 14:51] LABS: ALBUMIN 4.1 g/dL (3.2-5.5); ALBUMIN/GLOBULIN RATIO 1.1 (1.0-2.2); BILIRUBIN,TOTAL 1.3 mg/dL (0.2-1.0); CALCIUM 9.4 mg/dL (8.5-10.3); CREATININE 0.9 mg/dL (0.4-1.0); POTASSIUM 4.1 mmol/L (3.5-5.0); TOTAL PROTEIN 7.7 g/dL (6.7-8.2)
--- NOTE | 2021-05-23 14:55 | XRAY Report ---
PROCEDURE: Hip w/Pelvis 2-3V LT INDICATIONS: fall/L hip pain TECHNIQUE: AP pelvis with lateral view(s) of the left hip(s). COMPARISON: None. FINDINGS: Bones: Moderately displaced left femoral neck fracture. Pelvic ring appears intact. No suspicious lizzy ny lesions. Soft tissues: The visualized bowel gas pattern is normal. No suspicious soft tissue calcifications. IMPRESSION: Left femoral neck fracture. Reviewed by: Julianne Carbone MD on 05/23/2021 2:54 PM PDT Approved by: Julianne Carbone MD on 05/23/2021 2:54 PM PDT Station ID: [id number]
--- NOTE | 2021-05-23 14:56 | XRAY Report ---
PROCEDURE: Chest 1 View X-Ray INDICATIONS: chest pain TECHNIQUE: One view of the chest was acquired. COMPARISON: 09/02/2018 FINDINGS: Surgical changes and devices: None. Lungs and pleura: No pleural effusions or pneumothorax. Mild diffuse reticulonodular pulmonary opaci ty. Mediastinum: Mediastinal contours appear normal. Heart size is normal. Bones and chest wall: No suspicious bony lesions. Overlying soft tissues appear unremarkable. IMPRESSION: Mild atypical pneumonia. Reviewed by: Julianne Carbone MD on 05/23/2021 2:54 PM PDT Approved by: Julianne Carbone MD on 05/23/2021 2:54 PM PDT Station ID: [id number]
--- NOTE | 2021-05-23 15:32 | ED Physician Documentation ---
PD HPI LOWER EXT INJURY - Stated complaint Stated Complaint: GLF - Chief complaint Chief Complaint: Trauma Ext - History obtained from History obtained from: Patient, EMS - Additional information Additional information: Patient is brought to the emergency department by EMS for chief complaint of trip and fall at home last night now with left hip pain. The patient lives at home by herself and states that she did not hit her head or lose consciousness, but because of her hip pain, could not get up off the floor. She laid there all night and was discovered today by a family member who was going to take her to a doctor's appointment. Patient denies any other complaints at this time. No rib pain or other extremity pain. No spinal pain. No abdominal pain or chest pain. No shortness of breath. No history of hip fracture. She is not on anticoagulation. No other complaints at this time. Review of Systems Ten Systems: 10 systems reviewed and negative Constitutional: reports: Reviewed and negative Eyes: reports: Reviewed and negative Ears: reports: Reviewed and negative Nose: reports: Reviewed and negative Throat: reports: Reviewed and negative Cardiac: reports: Reviewed and negative Respiratory: reports: Reviewed and negative GI: reports: Reviewed and negative : reports: Reviewed and negative Skin: reports: Reviewed and negative Musculoskeletal: reports: Joint pain (Left hip), Reviewed and negative Neurologic: reports: Reviewed and negative Psychiatric: reports: Reviewed and negative Endocrine: reports: Reviewed and negative Immunocompromised: reports: Reviewed and negative PD PAST MEDICAL HISTORY - Past Medical History Cardiovascular: Murmur, Arrhythmia Respiratory: None Endocrine/Autoimmune: None GI: GERD : Incontinence HEENT: None Psych: Depression Musculoskeletal: Osteoarthritis, Osteoporosis Derm: None - Past Surgical 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 Cardiovascular: Other HEENT: Tonsil/Adenoidectomy - Present Medications Home Medications: Ambulatory Orders Medication Instructions Recorded Confirmed Calcitonin [Fortical] 1 sprays SALEEM DAILY #1 bottle 08/16/17 Naproxen 375 mg PO BID #20 tablet 08/16/17 Ondansetron Odt [Zofran] 4 mg TL Q6H PRN #15 tablet 08/16/17 oxyCODONE [Roxicodone] 5 mg PO Q4-6H PRN #20 tablet 08/16/17 - Allergies Allergies/Adverse Reactions: Allergies Allergy/AdvReac Type Severity Reaction Status Date / Time Sulfa (Sulfonamide Allergy Unknown Verified 05/23/21 14:22 Antibiotics) morphine AdvReac Nausea Verified 05/23/21 14:22 green veggies Allergy Unknown Uncoded 05/23/21 14:22 - Social History Does the pt smoke?: No Smoking Status: Never smoker Does the pt drink ETOH?: Yes Does the pt have substance abuse?: No - Immunizations Immunizations are current?: Yes - POLST Patient has POLST: No PD ED PE NORMAL - Vitals Vital signs reviewed: Yes - General General: Alert and oriented X 3, No acute distress, Well developed/nourished, Other (Patient is alert, appropriate, and well-appearing.) - HEENT HEENT: Atraumatic, PERRL, EOMI, Moist mucous membranes - Neck Neck: Supple, no meningeal sign, No bony TTP - Cardiac Cardiac: RRR, No murmur, Strong equal pulses - Respiratory Respiratory: No respiratory distress, Clear bilaterally - Abdomen Abdomen: Soft, Non tender, Non distended - Derm Derm: Normal color, Warm and dry, No rash - Extremities Extremities: No edema, No calf tenderness / cord, Other (Tenderness palpation over left lateral hip. Left lower extremity is not rotated, but is shortened by approximately 2 cm.) - Neuro Neuro: Alert and oriented X 3, kiss setter hand 2-12 intact, No motor deficit, No sensory deficit, Normal speech - Psych Psych: Normal mood, Normal affect Results - Vitals Vitals: Vital Signs - 24 hr 05/23/21 14:22 Temperature 36.5 C Heart Rate 98 Respiratory 16 Rate Blood Pressure 162/85 H O2 Saturation 92 Oxygen O2 Source Room air - Labs Labs: Laboratory Tests 05/23/21 05/23/21 05/23/21 14:10 14:26 14:26 WBC 13.2 H RBC 4.62 Hgb 14.3 Hct 42.5 MCV 92.0 MCH 31.0 MCHC 33.6 RDW 12.7 Plt Count 284 MPV 9.6 Neut # (Auto) 11.7 H Lymph # (Auto) 0.5 L [place] # (Auto) 0.9 Eos # (Auto) 0.0 Baso # (Auto) 0.0 Absolute Nucleated RBC 0.00 Nucleated RBC % 0.0 Sodium 136 Potassium 4.1 Chloride 99 L Carbon Dioxide 24 Anion Gap 13.0 BUN 19 Creatinine 0.9 Estimated GFR (MDRD) 59 L Glucose 148 H Calcium 9.4 Total Bilirubin 1.3 H AST 30 ALT 20 Alkaline Phosphatase 71 Total Creatine Kinase 394 H Total Protein 7.7 Albumin 4.1 Globulin 3.6 Albumin/Globulin Ratio 1.1 Lipase 36 Nasal Adenovirus (PCR) NOT DETECTED Nasal B. parapertussis DNA (PCR) NOT DETECTED Nasal Coronavir 229E PCR NOT DETECTED Nasal Coronavir HKU1 PCR NOT DETECTED Nasal Coronavir NL63 PCR NOT DETECTED Nasal Coronavir OC43 PCR NOT DETECTED Nasal Enterovir/Rhinovir PCR NOT DETECTED Nasal Influenza B PCR NOT DETECTED Nasal Influenza A PCR NOT DETECTED Nasal Parainfluen 1 PCR NOT DETECTED Nasal Parainfluen 2 PCR NOT DETECTED Nasal Parainfluen 3 PCR NOT DETECTED Nasal Parainfluen 4 PCR NOT DETECTED Nasal RSV (PCR) NOT DETECTED Nasal B.pertussis DNA PCR NOT DETECTED Nasal C.pneumoniae (PCR) NOT DETECTED Saleem Human Metapneumo PCR NOT DETECTED Nasal M.pneumoniae (PCR) NOT DETECTED Nasal SARS-CoV-2 (PCR) NOT DETECTED - Rads (name of study) Left hip and pelvis x-ray Radiology: Final report received, EMP read indepedently, See rad report (Left femoral neck fracture) PD MEDICAL DECISION MAKING - ED course Complexity details: reviewed results, re-evaluated patient, considered differential, d/w patient ED course: The patient was worked up with x-ray series of her pelvis and left hip which did show a moderately displaced femoral neck fracture. She was neurovascularly intact. I spoke with Dr. Gray, who is on-call for orthopedics, and he agreed to consult on the patient with request that hospitalist admit. The case was discussed with Dr. Moffett, who did agree to primarily admit. Departure - Departure Disposition: [facility] DC/Xfer Clinical Impression: Hip fracture Qualifiers: Encounter type: initial encounter Fracture type: closed Laterality: left Qualified Code(s): S72.002A - Fracture of unspecified part of neck of left femur, initial encounter for closed fracture Condition: Serious Discharge Date/Time: 05/23/21 17:20
[2021-05-23 15:57] LABS: B. PARAPERTUSSIS- RESP PCR PAN NOT DETECTED; B. PERTUSSIS- RESP PCR PANEL NOT DETECTED; C. PNEUMONIAE- RESP PCR PANEL NOT DETECTED; CORONAVIRUS 229E-RESP PCR NOT DETECTED; CORONAVIRUS HKU1-RESP PCR NOT DETECTED; CORONAVIRUS NL63-RESP PCR NOT DETECTED; CORONAVIRUS OC43-RESP PCR NOT DETECTED; HUMAN METAPNEUMOVIRUS NOT DETECTED; INFLUENZA A- RESP PCR PANEL NOT DETECTED; INFLUENZA B - RESP PCR PANEL NOT DETECTED; M. PNEUMONIAE- RESP PCR PANEL NOT DETECTED; PARAINFLUENZA VIRUS 1 NOT DETECTED; PARAINFLUENZA VIRUS 2 NOT DETECTED; PARAINFLUENZA VIRUS 3 NOT DETECTED; PARAINFLUENZA VIRUS 4 NOT DETECTED; RHINOVIRUS/ENTEROVIRUS NOT DETECTED; RSV- RESP PCR PANEL NOT DETECTED; SARS-CoV-2 -RESP PCR PANEL NOT DETECTED
[2021-05-23] MEDS ORDERED: ONDANSETRON 4 MG/2 ML VIAL IVP STA (16:22)
[2021-05-23] MEDS ORDERED: HYDROmorphone 1 MG/ML CARPUJECT IVP STA (16:22)
[2021-05-23] MEDS ORDERED: ONDANSETRON 4 MG/2 ML VIAL IVP PRN (16:24)
[2021-05-23] MEDS ORDERED: ONDANSETRON ODT 4 MG TABLET TL PRN (16:24)
--- NOTE | 2021-05-23 16:30 | HISTORY & PHYSICAL EXAMINATION ---
Chief Complaint - Chief Complaint Chief Complaint: fall with hip fracture History of Present Illness - Admitted From Admitted From:: home - History Obtained From Records Reviewed: [facility] History obtained from: patient and Dr. 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 Cardiovascular: reports: Other HEENT: reports: Tonsil/Adenoidectomy - POLST Patient has POLST: No Meds/Allgy - Home Medications Home Medications: Ambulatory Orders Medication Instructions Recorded Confirmed Calcitonin [Fortical] 1 sprays SALE[place] DAILY #1 bottle 08/16/17 Naproxen 375 mg PO BID #20 tablet 08/16/17 Ondansetron Odt [Zofran] 4 mg TL Q6H PRN #15 tablet 08/16/17 oxyCODONE [Roxicodone] 5 mg PO Q4-6H PRN #20 tablet 08/16/17 - Allergies Allergies/Adverse Reactions: Allergies Allergy/AdvReac Type Severity Reaction Status Date / Time Sulfa (Sulfonamide Allergy Unknown Verified 05/23/21 14:22 Antibiotics) morphine AdvReac Nausea Verified 05/23/21 14:22 green veggies Allergy Unknown Uncoded 05/23/21 14:22 Exam - Vital Signs Vital Signs: Vital Signs x48h Temp Pulse Resp BP Pulse Ox 05/23/21 14:22 36.5 C 98 16 162/85 H 92 Conclusion/Plan - Lab Results Fish Bones: 05/23/21 14:26 05/23/21 14:26
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
[2021-05-23] MEDS: SODIUM CHLORIDE 0.9% 1,000 ML IV SCH (19:25)
[2021-05-23] MEDS: SODIUM CHLORIDE FLUSH 0.9% 10 ML SYRINGE IVP SCH ×2 (19:25→23:57)
[2021-05-23] MEDS: oxyCODONE 5 MG TABLET PO PRN ×2 (19:31→23:57)
--- NOTE | 2021-05-23 19:33 | HISTORY & PHYSICAL EXAMINATION ---
Chief Complaint - Chief Complaint Chief Complaint: Left hip pain. History of Present Illness - Admitted From Admitted From:: Home - History Obtained From Records Reviewed: [facility] History obtained from: Patient, EMR - History of Present Illness HPI Comment/Other: This is a 89-year-old female with no significant past medical history who presents today complaining of left-sided hip pain. She states she was walking at her home yesterday when she went to her living room which is 1 step down. She fell when trying to walk down the steps and landed on her left side. Her friend came to check on her today and that is when EMS was called. The patient denies any syncope, loss of consciousness, chest pain, dyspnea. Vel states she may have had a little fever yesterday morning but otherwise felt well. She normally ambulates with a cane and can go up a flight of stairs without any chest pain. She reports a prior history of tachycardia for which she had an ablation. This sounds if she had a history of atrial fibrillation. She denies a history of heart failure, stroke, hypertension, diabetes. She currently takes no medications. She states her pain is currently about a 5 out of 10. She has no numbness in the left leg. We discussed goals of care and she would like to be a DNR. 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 Living arrangement: At home Living Situation: Alone Social History Notes: She lives at home alone after her in November 2019. She smoked a pack a day for 60 years but quit about 10 years ago. She will have an occasional glass of wine. - POLST Patient has POLST: No Meds/Allgy - Home Medications Home Medications: Ambulatory Orders Medication Instructions Recorded Confirmed Calcitonin [Fortical] 1 sprays [place] DAILY #1 bottle 08/16/17 Naproxen 375 mg PO BID #20 tablet 08/16/17 Ondansetron Odt [Zofran] 4 mg TL Q6H PRN #15 tablet 08/16/17 oxyCODONE [Roxicodone] 5 mg PO Q4-6H PRN #20 tablet 08/16/17 - Allergies Allergies/Adverse Reactions: Allergies Allergy/AdvReac Type Severity Reaction Status Date / Time Sulfa (Sulfonamide Allergy Unknown Verified 05/23/21 14:22 Antibiotics) morphine AdvReac Nausea Verified 05/23/21 14:22 green veggies Allergy Unknown Uncoded 05/23/21 14:22 Review of Systems - Constitutional Constitutional: reports: Fever. denies: Chills - Ears, Nose & Throat Ears, Nose & Throat: denies: Nasal discharge, Postnasal drainage - Cardiovascular Cariovascular: denies: Chest pain, Edema, Lightheadedness, Syncope, Exertional dyspnea, Decr. exercise tolerance - Respiratory Respiratory: denies: Cough, Sputum production, SOB at rest, SOB with exertion - Gastrointestinal Gastrointestinal: denies: Abdominal pain, Nausea, Vomiting - Genitourinary Genitourinary: denies: Dysuria, Frequency, Urgency, Hematuria - Musculoskeletal Musculoskeletal: reports: Stiffness, Limited range of motion, Joint pain - Integumentary Integumentary: denies: Rash - Neurological Neurological: reports: Focal weakness. denies: General weakness, Numbness, Pre- existing deficit - Hematologic/Lymphatic Hematologic/Lymphatic: denies: Anemia, Bleeding tendencies - All Other Systems All Other Systems: reports: Reviewed and negative Prior Level of Functionality: She is independent with her ADL's. Exam - Vital Signs Reviewed Vital Signs: Yes Vital Signs: Vital Signs x48h Temp Pulse Resp BP Pulse Ox 05/23/21 14:22 36.5 C 98 16 162/85 H 92 - Physical Exam General Appearance: positive: No acute distress, Alert Eyes Bilateral: positive: Normal inspection ENT: positive: ENT inspection nml Neck: positive: Nml inspection Respiratory: positive: No respiratory distress. negative: Wheezes Cardiovascular: positive: Regular rate & rhythm. negative: Tachycardia, Systolic murmur Abdomen: positive: Non-tender, No distention. negative: Tenderness Skin: positive: Warm, Dry Extremities: positive: No pedal edema, Other (Left lower extremity is shortened and externally rotated. Sensation is intact. +2 dorsalis pedis pulse in the left lower extremity.) Neurologic/Psychiatric: negative: Disoriented to person, Disoriented to place Conclusion/Plan - Problem List (1) Hip fracture Conclusion/Plan: Imaging has revealed a left femoral neck fracture. We will admit her and make her n.p.o. at midnight. Dilaudid as needed for pain control. The plan will be for surgical intervention tomorrow with orthopedic surgery. She will then need PT/OT. Appreciate social work assistance regarding disposition. She will need a bisphosphonate 2 weeks from now. Qualifiers: Encounter type: initial encounter Fracture type: closed Laterality: left Qualified Code(s): S72.002A - Fracture of unspecified part of neck of left femur, initial encounter for closed fracture (2) Pre-op evaluation Conclusion/Plan: It appears she is able to function greater than 4 METS. She has no chest pain, dyspnea with activity and can climb a flight of stairs. Her EKG reveals a sinus rhythm without evidence of ischemia. She does not appear to be in heart failure. Her x-ray was concerning for potentially mild atypical pneumonia but she does not have any symptoms that would suggest pneumonia and the imaging does not appear very impressive. At this point in time, I do not believe further work-up is necessary prior to surgical intervention and that she is medically optimized. Her ortega perioperative risk for myocardial infarction or cardiac arrest is approximately 0.3%. - Lab Results Lab results reviewed: Yes Avinash Bones: 05/23/21 14:26 05/23/21 14:26 - Diagnostic Imaging Results Diagnostic Imaging Results: positive: Final report reviewed - EKG Results EKG Interpreted Independently: Yes EKG Comparison: Changed from prior EKG (Compared to the prior EKG, the QTC is not prolonged.) EKG Findings: Her EKG reveals a sinus rhythm with a prolonged QTC. No evidence of ischemia. Core Measures - Anticipated LOS I expect patient to be DC'd or transferred within 96 hours.: Yes - Issues Hospital Issues and Management Plan: 89-year-old female presents after a fall found of left hip fracture. She will go to the OR tomorrow orthopedic surgery. - DVT/VTE - Prophylaxis VTE/DVT Device ordered at admit?: Yes VTE/DVT Prophylaxis med ordered at admit?: Yes
[2021-05-24] MEDS: SODIUM CHLORIDE 0.9% 1,000 ML IV SCH (04:06)
[2021-05-24] MEDS: oxyCODONE 5 MG TABLET PO PRN ×2 (04:29→17:23)
[2021-05-24 05:43] LABS: BASOPHILS % (AUTO) 0.3 %; EOSINOPHILS % (AUTO) 0.1 %; HCT - HEMATOCRIT 38.5 % (37.0-47.0); HGB - HEMOGLOBIN 12.7 g/dL (12.0-16.0); LYMPHOCYTES # (AUTO) 0.9 10^3/uL (1.5-3.5); LYMPHOCYTES % (AUTO) 7.4 %; MEAN CORPUSCULAR HEMOGLOBIN 30.8 pg (27.0-31.0); MEAN CORPUSCULAR VOLUME 93.4 fL (81.0-99.0); MEAN PLATELET VOLUME 9.6 fL (7.9-10.8); MONOCYTES # (AUTO) 1.2 10^3/uL (0.0-1.0); MONOCYTES % (AUTO) 9.8 %; NEUTROPHILS # (AUTO) 9.8 10^3/uL (1.5-6.6); PLT - PLATELET COUNT 251 10^3/uL (130-450); RED BLOOD COUNT 4.12 10^6/uL (4.20-5.40); RED CELL DISTRIBUTION WIDTH 12.7 % (12.0-15.0); WHITE BLOOD COUNT 11.9 x10^3/uL (4.8-10.8)
[2021-05-24 05:47] LABS: INR 1.3 (0.8-1.2); PT - PROTHROMBIN TIME 13.9 secs (9.9-12.6)
[2021-05-24 05:53] LABS: CALCIUM 8.9 mg/dL (8.5-10.3); CREATININE 0.9 mg/dL (0.4-1.0); POTASSIUM 3.5 mmol/L (3.5-5.0)
--- NOTE | 2021-05-24 10:23 | ANESTHESIA ---
Pre-Anesthesia VS, & Labs - Diagnosis left hip fracture - Procedure left hemiarthroplasty Vital Signs: Temp Pulse Resp BP Pulse Ox 36.8 C 88 16 153/62 H 92 05/24/21 06:56 05/24/21 06:56 05/24/21 06:56 05/24/21 06:56 05/24/21 06:56 Height: 5 ft 5 in Weight (kg): 49 kg Body Mass Index: 17.9 BMI Classification: Underweight - NPO >8 hours - Is Patient ?: No - Lab Results Current Lab Results: Laboratory Tests 05/24/21 05:04: PT 13.9 H, INR 1.3 H 05/24/21 05:04: Sodium 136, Potassium 3.5, Chloride 102, Carbon Dioxide 26, Anion Gap 8.0, BUN 21 H, Creatinine 0.9, Estimated GFR (MDRD) 59 L, Glucose 126 H, Calcium 8.9 05/24/21 05:04: WBC 11.9 H, RBC 4.12 L, Hgb 12.7, Hct 38.5, MCV 93.4, MCH 30.8, MCHC 33.0, RDW 12.7, Plt Count 251, MPV 9.6, Neut # (Auto) 9.8 H, Lymph # (Auto) 0.9 L, [place] # (Auto) 1.2 H, Eos # (Auto) 0.0, Baso # (Auto) 0.0, Absolute N ucleated RBC 0.00, Nucleated RBC % 0.0 05/23/21 14:26: Sodium 136, Potassium 4.1, Chloride 99 L, Carbon Dioxide 24, Anion Gap 13.0, BUN 19, Creatinine 0.9, Estimated GFR (MDRD) 59 L, Glucose 148 H , Calcium 9.4, Total Bilirubin 1.3 H, AST 30, ALT 20, Alkaline Phosphatase 71, Total Creatine Kinase 394 H, Total Protein 7.7, Albumin 4.1, Globulin 3.6, Albumin/Globulin Ratio 1.1, Lipase 36 05/23/21 14:26: WBC 13.2 H, RBC 4.62, Hgb 14.3, Hct 42.5, MCV 92.0, MCH 31.0, MCHC 33.6, RDW 12.7, Plt Count 284, MPV 9.6, Neut # (Auto) 11.7 H, Lymph # (Auto) 0.5 L, [place] # (Auto) 0.9, Eos # (Auto) 0.0, Baso # (Auto) 0.0, Absolute Nucleated RBC 0.00, Nucleated RBC % 0.0 Lab results reviewed: Yes Fish Bones: 05/24/21 05:04 05/24/21 05:04 Home Medications and Allergies Active Medications Acetaminophen (Acetaminophen 325 Mg Tablet) 650 mg PO Q4HR PRN PRN Reason: Pain 1 to 4, or Fever Enoxaparin Sodium (Enoxaparin 40 Mg/0.4 Ml Syringe) 40 mg SUBQ DAILY PENDING SALE TO [facility] Hydromorphone HCl (Hydromorphone 0.5 Mg/0.5 Ml Syringe) 0.5 mg IVP Q2H PRN PRN Reason: Pain 8 to 10 Sodium Chloride (Normal Saline 0.9%) 1,000 mls @ 100 mls/hr IV .Q10H PENDING S[facility] TO [facility] Last Admin: 05/24/21 04:06 Dose: 100 mls/hr Ondansetron HCl (Ondansetron Odt 4 Mg Tablet) 4 mg TL Q6HR PRN PRN Reason: Nausea / Vomiting Ondansetron HCl (Ondansetron 4 Mg/2 Ml Vial) 4 mg IVP Q6HR PRN PRN Reason: Nausea / Vomiting Oxycodone HCl (Oxycodone 5 Mg Tablet) 5 mg PO Q4HR PRN PRN Reason: Pain 5 to 7 Last Admin: 05/24/21 04:29 Dose: 5 mg Sodium Chloride (Sodium Chloride Flush 0.9% 10 Ml Syringe) 10 ml IVP PRN PRN PRN Reason: NEEDED PER PROVIDER ORDERS Sodium Chloride (Sodium Chloride Flush 0.9% 10 Ml Syringe) 10 ml IVP 0100,0900,1700 [facility]END[facility] TO [facility] Last Admin: 05/23/21 23:57 Dose: 10 ml Allergies/Adverse Reactions: Allergies Allergy/AdvReac Type Severity Reaction Status Date / Time broccoli Allergy Unknown Verified 05/24/21 07:29 green pepper Allergy Unknown Verified 05/24/21 07:29 lettuce Allergy Unknown Verified 05/24/21 07:29 spinach Allergy Unknown Verified 05/24/21 07:29 Sulfa (Sulfonamide Allergy Unknown Verified 05/23/21 14:22 Antibiotics) morphine AdvReac Nausea Verified 05/23/21 14:22 Anes History & Medical History - Anesthetic History Anesthesia Complications: reports: No previous complications Family history of Anesthesia Complications: Denies Family history of Malignant Hyperthermia: Denies - Medical History Cardiovascular: reports: Atrial fibrillation (ablation in past) Pulmonary: reports: None Gastrointestinal: reports: GERD Urinary: reports: Incontinence Musculoskeletal: reports: Osteoarthritis, Osteoporosis Endocrine/Autoimmune: reports: None Blood Disorders: reports: None Skin: reports: None Smoking Status: Never smoker - Surgical History Eyes Ears Nose Throat (EENT): reports: Tonsil/Adenoidectomy Cardiothoracic: reports: Other (Ablation) Gynecologic: reports: section Exam General: Alert, Oriented x3, Cooperative, Mild distress Dental: WNL Mouth Openin Fingerbreadth Neck Mobility: Normal Mallampati classification: II Plan Anesthesia Type: General, Fascia Iliaca Block Consent for Procedure(s) Verified and Reviewed: Yes Code Status: Attempt Resuscitation ASA classification: 3-Severe systemic disease Is this case an emergency?: No
[2021-05-24] MEDS: HYDROmorphone 0.5 MG/0.5 ML SYRINGE IVP PRN (10:32)
[2021-05-24] MEDS ORDERED: fentaNYL 100 MCG/2 ML VIAL ONE (11:22)
[2021-05-24] MEDS ORDERED: VANCOMYCIN 1 GM VIAL ONE (12:13)
--- NOTE | 2021-05-24 12:27 | PROVIDER PROGRESS NOTE ---
Assessment/Plan - Problem List (1) Hip fracture Qualifiers: Encounter type: initial encounter Fracture type: closed Laterality: left Qualified Code(s): S72.002A - Fracture of unspecified part of neck of left femur, initial encounter for closed fracture Assessment/Plan: see pt twice, she is at good sleeping. I talked with pt's brother and sister in law at the bedside. both state pt has no cardiac history, no home medications, she is doing well at home. we do not have ECHO service now at hospital. My colleague had pre-operation assessment for pt, "Her ortega perioperative risk for myocardial infarction or cardiac arrest is approximately 0.3%". Orthopedics surgeon plan to have hip repair for pt at this afternoon, medical team will followup medical management for pt will continue pain control, PT/OT for pt, DVT prophylaxis is from surgeon's recommendation, now Patient is on Lovenox. Consult with social work for disposition planning - Current Meds Current Meds: Current Medications Generic Name Dose Route Start Last Admin Trade Name Freq PRN Reason Stop Dose Admin Hydromorphone HCl 0.5 mg 05/23/21 16:24 05/24/21 10:32 Hydromorphone 0.5 Mg/0.5 Ml Syringe IVP 0.5 mg Q2H PRN Administration Pain 8 to 10 Sodium Chloride 1,000 mls @ 100 mls/hr 05/23/21 17:00 05/24/21 04:06 Normal Saline 0.9% IV 100 mls/hr .Q10H MOE Administration Oxycodone HCl 5 mg 05/23/21 16:24 05/24/21 04:29 Oxycodone 5 Mg Tablet PO 5 mg Q4HR PRN Administration Pain 5 to 7 Sodium Chloride 10 ml 05/23/21 17:00 05/23/21 23:57 Sodium Chloride Flush 0.9% 10 Ml Syringe IVP 10 ml 0100,0900,1700 MOE Administration - Lab Result Fish Bone Diagrams: 05/24/21 05:04 05/24/21 05:04 Subjective - Subjective Patient Reports: Resting Comfortably Objective Vital Signs: Vital Signs - 24 hr 05/23/21 05/24/21 05/24/21 14:22 00:04 06:56 Temperature 36.5 C 36.8 C 36.8 C Heart Rate 98 Heart Rate [ 76 88 Radial] Respiratory 16 18 16 Rate Blood Pressure 162/85 H Blood Pressure 155/71 H 153/62 H [Right Brachial artery] O2 Saturation 92 89 L 92 Oxygen O2 Source Room air I&O (Last 24 Hrs): Intake and Output Totals x24h 05/22/21 05/23/21 05/24/21 23:59 23:59 23:59 Intake Total 1200 868.333 Output Total 75 150 Balance 1125 718.333 General: Alert, Oriented x3, Cooperative, No acute distress HEENT: Atraumatic Neck: Supple Lymphatic: no adenopathy Neuro: Alert, Non Focal, Oriented Times 3 Cardiovascular: Regular rate, Normal S1, Normal S2 Respiratory: Chest non-tender, No respiratory distress Abdomen: Normal bowel sounds, Soft Extremities: Normal pulses - Results Results: Laboratory Results WBC 11.9 x10^3/uL (4.8-10.8) H 05/24/21 05:04 RBC 4.12 10^6/uL (4.20-5.40) L 05/24/21 05:04 Hgb 12.7 g/dL (12.0-16.0) 05/24/21 05:04 Hct 38.5 % (37.0-47.0) 05/24/21 05:04 MCV 93.4 fL (81.0-99.0) 05/24/21 05:04 MCH 30.8 pg (27.0-31.0) 05/24/21 05:04 MCHC 33.0 g/dL (32.0-36.0) 05/24/21 05:04 RDW 12.7 % (12.0-15.0) 05/24/21 05:04 Plt Count 251 10^3/uL (130-450) 05/24/21 05:04 MPV 9.6 fL (7.9-10.8) 05/24/21 05:04 Neut # (Auto) 9.8 10^3/uL (1.5-6.6) H 05/24/21 05:04 Lymph # (Auto) 0.9 10^3/uL (1.5-3.5) L 05/24/21 05:04 [place] # (Auto) 1.2 10^3/uL (0.0-1.0) H 05/24/21 05:04 Eos # (Auto) 0.0 10^3/uL (0.0-0.7) 05/24/21 05:04 Baso # (Auto) 0.0 10^3/uL (0.0-0.1) 05/24/21 05:04 Absolute Nucleated RBC 0.00 x10^3/uL 05/24/21 05:04 Nucleated RBC % 0.0 /100WBC 05/24/21 05:04 PT 13.9 secs (9.9-12.6) H 05/24/21 05:04 INR 1.3 (0.8-1.2) H 05/24/21 05:04 Sodium 136 mmol/L (135-145) 05/24/21 05:04 Potassium 3.5 mmol/L (3.5-5.0) 05/24/21 05:04 Chloride 102 mmol/L (101-111) 05/24/21 05:04 Carbon Dioxide 26 mmol/L (21-32) 05/24/21 05:04 Anion Gap 8.0 (6-13) 05/24/21 05:04 BUN 21 mg/dL (6-20) H 05/24/21 05:04 Creatinine 0.9 mg/dL (0.4-1.0) 05/24/21 05:04 Estimated GFR (MDRD) 59 (>89) L 05/24/21 05:04 Glucose 126 mg/dL (70-100) H 05/24/21 05:04 Calcium 8.9 mg/dL (8.5-10.3) 05/24/21 05:04 Total Bilirubin 1.3 mg/dL (0.2-1.0) H 05/23/21 14:26 AST 30 IU/L (10-42) 05/23/21 14:26 ALT 20 IU/L (10-60) 05/23/21 14:26 Alkaline Phosphatase 71 IU/L (42-121) 05/23/21 14:26 Total Creatine Kinase 394 IU/L (22-269) H 05/23/21 14:26 Total Protein 7.7 g/dL (6.7-8.2) 05/23/21 14:26 Albumin 4.1 g/dL (3.2-5.5) 05/23/21 14:26 Globulin 3.6 g/dL (2.1-4.2) 05/23/21 14:26 Albumin/Globulin Ratio 1.1 (1.0-2.2) 05/23/21 14:26 Lipase 36 U/L (22-51) 05/23/21 14:26 Nasal Adenovirus (PCR) NOT DETECTED 05/23/21 14:10 Nasal B. parapertussis DNA (PCR) NOT DETECTED 05/23/21 14:10 Nasal Coronavir 229E PCR NOT DETECTED 05/23/21 14:10 Nasal Coronavir HKU1 PCR NOT DETECTED 05/23/21 14:10 Nasal Coronavir NL63 PCR NOT DETECTED 05/23/21 14:10 Nasal Coronavir OC43 PCR NOT DETECTED 05/23/21 14:10 Nasal Enterovir/Rhinovir PCR NOT DETECTED 05/23/21 14:10 Nasal Influenza B PCR NOT DETECTED 05/23/21 14:10 Nasal Influenza A PCR NOT DETECTED 05/23/21 14:10 Nasal Parainfluen 1 PCR NOT DETECTED 05/23/21 14:10 Nasal Parainfluen 2 PCR NOT DETECTED 05/23/21 14:10 Nasal Parainfluen 3 PCR NOT DETECTED 05/23/21 14:10 Nasal Parainfluen 4 PCR NOT DETECTED 05/23/21 14:10 Nasal RSV (PCR) NOT DETECTED 05/23/21 14:10 Nasal B.pertussis DNA PCR NOT DETECTED 05/23/21 14:10 Nasal C.pneumoniae (PCR) NOT DETECTED 05/23/21 14:10 [place] Human Metapneumo PCR NOT DETECTED 05/23/21 14:10 Nasal M.pneumoniae (PCR) NOT DETECTED 05/23/21 14:10 Nasal SARS-CoV-2 (PCR) NOT DETECTED 05/23/21 14:10 ABX Reporting Has patient been on IV antibiotics over the past 48 hours?: No Current Medications - Current Medications Current Medications: Active Medications Acetaminophen (Acetaminophen 325 Mg Tablet) 650 mg PO Q4HR PRN PRN Reason: Pain 1 to 4, or Fever Enoxaparin Sodium (Enoxaparin 40 Mg/0.4 Ml Syringe) 40 mg SUBQ DAILY MOE Hydromorphone HCl (Hydromorphone 0.5 Mg/0.5 Ml Syringe) 0.5 mg IVP Q2H PRN PRN Reason: Pain 8 to 10 Last Admin: 05/24/21 10:32 Dose: 0.5 mg Sodium Chloride (Normal Saline 0.9%) 1,000 mls @ 100 mls/hr IV .Q10H [facility] Last Admin: 05/24/21 04:06 Dose: 100 mls/hr Ondansetron HCl (Ondansetron Odt 4 Mg Tablet) 4 mg TL Q6HR PRN PRN Reason: Nausea / Vomiting Ondansetron HCl (Ondansetron 4 Mg/2 Ml Vial) 4 mg IVP Q6HR PRN PRN Reason: Nausea / Vomiting Oxycodone HCl (Oxycodone 5 Mg Tablet) 5 mg PO Q4HR PRN PRN Reason: Pain 5 to 7 Last Admin: 05/24/21 04:29 Dose: 5 mg Sodium Chloride (Sodium Chloride Flush 0.9% 10 Ml Syringe) 10 ml IVP PRN PRN PRN Reason: NEEDED PER PROVIDER ORDERS Sodium Chloride (Sodium Chloride Flush 0.9% 10 Ml Syringe) 10 ml IVP 0100,0900,1700 [facility] Last Admin: 05/23/21 23:57 Dose: 10 ml
[2021-05-24] MEDS ORDERED: ceFAZolin 1 GM VIAL ONE (13:04)
[2021-05-24] MEDS ORDERED: TRANEXAMIC ACID 1,000 MG/10 ML VIAL ONE (13:04)
[2021-05-24] MEDS ORDERED: VANCOMYCIN 1 GM VIAL MC ONE ×2 (13:39→15:19)
[2021-05-24] MEDS ORDERED: SUGAMMADEX 200 MG/2 ML VIAL IVP ONE (14:08)
[2021-05-24] MEDS ORDERED: BUPIVACAINE 0.25% PF 30 ML VIAL SUBQ ONE ×2 (14:12→15:19)
[2021-05-24] MEDS ORDERED: BUPIVACAINE 0.25% PF 30 ML VIAL ONE (14:19)
--- NOTE | 2021-05-24 14:30 | OPERATIVE REPORT ---
Operative Report - General Admit Date: 05/23/21 Procedure Date: 05/24/21 Planned Procedure: left hip hemiarthroplasty Pre-Op Diagnosis: Completely displaced femoral neck fracture left hip Procedure Performed: Left hip hemiarthroplasty using [employer] cemented #14 standard offset Synergy [place] chrome femoral component, 46 mm unipolar cobalt chrome femoral head, +0 neck, antibiotic cement Post Op Diagnosis: Same as preoperative diagnosis - Procedure Note Primary Surgeon: Chidi Gray MD Secondary Surgeon: Telma Rodríguez PAC Anesthesia Provider: Manish Singh CRNA Anesthesia Technique: General ET tube Estimated Blood Loss (mL): 100 Indications: This is a 89-year-old woman, relatively good health, ambulatory who lives at home by herself. She fell the evening before admission walking inside her house, apparently fell over a step landing on her left hip. She had an immediate pain and could not bear weight on the left leg and was not found until the next morning by her [id number]. She was taken to the emergency room yesterday where she was admitted, evaluated by her hospitalist and orthopedic service. She had limited and painful motion left hip with shortening and external rotation deformity left leg. Her x-ray showed a completely displaced femoral neck fracture left hip. She was felt to be acceptable for surgery. Patient agreed and signed an informed consent prior to surgery for a left hip hemiarthroplasty. Findings: The acetabulum was intact. The femoral head did not show signs of arthritis. The femoral neck fracture was completely displaced. Complications: None - Other Other Information/Narrative: The patient was brought to the operating room, given a general Endotracheal anesthetic. She was placed on the operating table initially supine, then turned to a lateral decubitus position with the left hip facing superiorly. She was secured in the lateral decubitus position using the pegboard and PEG holders to pelvis and torso. The left hip and lower extremity were prepped and draped in a sterile manner in the usual fashion. A timeout procedure was performed by the entire operating room team and all were in agreement. A longitudinal incision was made over the lateral aspect of the left hip, centered about the greater trochanter. The skin, subcutaneous tissue and fascia indy were split. A self-retaining retractor was inserted. The myotendinous junction of the anterior one third of the gluteus medius was released. The anterior hip capsule was exposed split longitudinally and then divided transversely in a T-shaped fashion. Part of the anterior hip capsule was excised. The femoral head was removed using a corkscrew, measured 46 mm in diameter with calipers. The acetabulum was cleared of some small capsular fracture fragments. The left leg was placed in an anterior pocket. The femoral canal was opened with a box osteotome, starting reamer and then broaching up to a 14 mm broach. The broaching was done in 1 mm increments. The broach was inserted with slight anteversion. Because of her thin cortex, a cemented technique was elected. A canal plug was inserted distally, approximately 19 to 20 cm distal to the osteotomy. The canal was cleaned with a brush and pulsatile lavage, dried with a suction pad and lap pad. A 14 Synergy component was then inserted after using a cement gun to insert the cement, pressurizing the cement. The proximal portion of the stem was pushed laterally to provide some valgus, set flush with femoral neck cortex. Trial reduction was performed with the 54 mm +0 unipolar head and was found to be stable and had good leg length tension. A permanent 46 mm unipolar head was then impacted on the femoral trunnion, reduced, taken through range of motion is found to have good motion and good stability as well as leg length tension. The wound was irrigated with dilute Betadine followed by saline irrigation.Vancomycin powder, 2 g was inserted prior to the deep closure. The anterior capsule and gluteus medius were both repaired with #1 strata fix suture, fascia indy closed with #1 strata fix suture, subcutaneous tissue closed with 2 O strata fix suture, subcuticular closure with 3 O strata fix suture. Finally, Dermabond was applied to the skin, silver impregnated dressing after the Dermabond had hardened. She received 2 g of Ancef and 1 g of tranexamic acid, tolerated procedure well. Physician customer support assistant was utilized, medically necessary, to provide the necessary exposure, protection of vital structures, facilitate with dislocation and reduction of the hip, wound closure and dressing.
[2021-05-24] MEDS ORDERED: ePHEDrine 50 MG/ML VIAL IVP PRN (14:33)
[2021-05-24] MEDS ORDERED: METOCLOPRAMIDE 10 MG/2 ML VIAL IVP PRN (14:33)
[2021-05-24] MEDS ORDERED: ONDANSETRON 4 MG/2 ML VIAL IVP PRN (14:33)
[2021-05-24] MEDS ORDERED: HYDROmorphone 0.5 MG/0.5 ML SYRINGE IVP PRN (14:33)
[2021-05-24] MEDS ORDERED: ATROPINE ABBOJECT 1 MG/10 ML SYRINGE IVP PRN (14:33)
[2021-05-24] MEDS ORDERED: NALOXONE 0.4 MG/ML VIAL IVP PRN (14:33)
[2021-05-24] MEDS ORDERED: MORPHINE 2 MG/ML CARPUJECT IVP PRN (14:33)
[2021-05-24] MEDS ORDERED: fentaNYL 100 MCG/2 ML VIAL IVP PRN (14:33)
[2021-05-24] MEDS: SODIUM CHLORIDE FLUSH 0.9% 10 ML SYRINGE IVP SCH ×2 (14:52→19:11)
[2021-05-24] MEDS ORDERED: LACTATED RINGERS 1,000 ML IV SCH (15:00)
[2021-05-24] MEDS ORDERED: LACTATED RINGERS 1,000 ML IV ONE ×2 (15:21→16:27)
--- NOTE | 2021-05-24 16:04 | XRAY Report ---
PROCEDURE: Pelvis 1 View INDICATIONS: POST OP LEFT HIP HEMIARTHROPLASTY TECHNIQUE: AP view(s) of the pelvis acquired. COMPARISON: May 23, 2021. FINDINGS: BONES/JOINTS: Interval placement of a left hip arthroplasty. No evidence of hardware compromise appre ciated. Diffuse osteopenia. No widening of the pubic symphysis. The visualized sacroiliac joints are symmetric. SOFT TISSUES: Left hip subcutaneous emphysema. IMPRESSION: 1.Post surgical change of the left hip. Reviewed by: Tenzin Kamara MD on 05/24/2021 4:03 PM PDT Approved by: Tenzin Kamara MD on 05/24/2021 4:03 PM PDT Station ID: [id number]
--- NOTE | 2021-05-24 16:57 | ANESTHESIA POST OP EVALUATION ---
Anesthesia Post Eval - Post Anesthesia Eval Vitals: Last Vital Signs Temp 37.1 C 05/24/21 16:55 Pulse 101 H 05/24/21 16:55 Resp 17 05/24/21 16:55 BP 139/77 H 05/24/21 16:55 Pulse Ox 90 L 05/24/21 16:55 CV Function Including HR & BP: Stable Pain Control: Satisfactory Nausea & Vomiting: Negative Mental Status: Baseline Respiratory Status: Airway Patent Hydration Status: Satisfactory Anesthesia Complications: None
[2021-05-24] MEDS ORDERED: ALBUTEROL NEB 2.5 MG/3 ML INH PRN (18:34)
[2021-05-24] MEDS ORDERED: IPRATROPIUM/ALBUTEROL 3 ML NEB INH PRN (18:34)
[2021-05-24] MEDS ORDERED: SODIUM CHLORIDE 0.9% 1,000 ML IV SCH (19:00)
--- NOTE | 2021-05-24 19:08 | XRAY Report ---
PROCEDURE: Chest 1 View X-Ray INDICATIONS: sob TECHNIQUE: One view of the chest was acquired. COMPARISON: 05/23/2021 FINDINGS: Surgical changes and devices: None. Lungs and pleura: Interval progression of findings, was consistent with progression of interstitial p ulmonary edema, development of patchy bibasilar atelectasis, and development of small pleural effusio ns. Mediastinum: Mediastinal contours appear normal. Heart size is normal. Bones and chest wall: No suspicious bony lesions. Overlying soft tissues appear unremarkable. IMPRESSION: Findings are consistent with a worsening congestive heart failure exacerbation. Reviewed by: Alejo Richard MD on 05/24/2021 7:07 PM PDT Approved by: Alejo Richard MD on 05/24/2021 7:07 PM PDT Station ID: [id number]
[2021-05-24] MEDS: cefTRIAXone 1 GM in SODIUM CHLORIDE 0.9% MINIBAG 100 ML IV SCH (19:11)
[2021-05-24] MEDS: IPRATROPIUM 0.2 MG/ML NEB INH SCH (19:32)
[2021-05-24] MEDS: LEVALBUTEROL 1.25 MG/3 ML NEB INH PRN (19:32)
[2021-05-24] MEDS: AZITHROMYCIN INJ 500 MG in SODIUM CHLORIDE 0.9% 250 ML IV SCH (20:00)
[2021-05-24] MEDS: CALCIUM CARBONATE CHEW 500 MG TABLET PO SCH (21:23)
[2021-05-25] MEDS: SODIUM CHLORIDE FLUSH 0.9% 10 ML SYRINGE IVP SCH ×3 (02:49→16:17)
[2021-05-25 05:27] LABS: BASOPHILS % (AUTO) 0.1 %; HCT - HEMATOCRIT 37.7 % (37.0-47.0); HGB - HEMOGLOBIN 12.1 g/dL (12.0-16.0); LYMPHOCYTES % (AUTO) 5.7 %; MEAN CORPUSCULAR HEMOGLOBIN 30.7 pg (27.0-31.0); MEAN CORPUSCULAR HGB CONC 32.1 g/dL (32.0-36.0); MEAN CORPUSCULAR VOLUME 95.7 fL (81.0-99.0); MEAN PLATELET VOLUME 9.6 fL (7.9-10.8); MONOCYTES % (AUTO) 11.6 %; NEUTROPHILS % (AUTO) 82.2 %; PLT - PLATELET COUNT 264 10^3/uL (130-450); RED BLOOD COUNT 3.94 10^6/uL (4.20-5.40); WHITE BLOOD COUNT 13.4 x10^3/uL (4.8-10.8)
[2021-05-25 05:34] LABS: ABNORMAL LYMPHS % (MANUAL) 0 %
[2021-05-25 05:36] LABS: CALCIUM 8.5 mg/dL (8.5-10.3); POTASSIUM 4.1 mmol/L (3.5-5.0)
[2021-05-25 05:48] LABS: BAND NEUTROPHILS % (MANUAL) 3 %; LYMPHOCYTES # (MANUAL) 1.2 10^3/uL (1.5-3.5); LYMPHOCYTES % (MANUAL) 9 %; MONOCYTES # (MANUAL) 0.8 10^3/uL (0.0-1.0); NEUTROPHILS # (MANUAL) 11.4 10^3/uL (1.5-6.6); RBC MORPHOLOGY (MULTIPLE) NORMAL APPEARANCE (NORMAL)
[2021-05-25 05:49] LABS: DIFFERENTIAL COMMENT MANUAL DIFFERENTIAL; PLATELET ESTIMATE, MANUAL NORMAL (130-450,000) (NORMAL)
[2021-05-25] MEDS: ACETAMINOPHEN 325 MG TABLET PO PRN (06:37)
[2021-05-25] MEDS: IPRATROPIUM 0.2 MG/ML NEB INH SCH ×4 (07:14→19:56)
[2021-05-25] MEDS: LEVALBUTEROL 1.25 MG/3 ML NEB INH PRN ×4 (07:14→19:56)
--- NOTE | 2021-05-25 09:55 | CT Report ---
PROCEDURE: HEAD WO INDICATIONS: headache, fall TECHNIQUE: Noncontrast 4.5 mm thick angled axial sections acquired from the foramen magnum to the vertex. For r adiation dose reduction, the following was used: automated exposure control, adjustment of mA and/or kV according to patient size. COMPARISON: None FINDINGS: Image quality: Excellent. CSF spaces: Basal cisterns are patent. No extra-axial fluid collections. The ventricles are symmet leela in size and shape. Brain: No intracranial bleeds or masses. There is cerebral volume loss for age, with resultant vent ricular and sulcal prominence. There are periventricular and deep white matter chronic small vessel ischemic changes. Small chronic left pain and lacunar infarct versus prominent perivascular space. Th ere is intracranial internal carotid artery atherosclerosis. Skull and face: Calvarium and visualized facial bones appear intact, without suspicious lesions. Sinuses: Visualized sinuses and mastoids are clear. IMPRESSION: No acute intracranial disease process. Reviewed by: Elise Carter MD, PhD on 05/25/2021 9:54 AM PDT Approved by: Elise Carter MD, PhD on 05/25/2021 9:54 AM PDT Station ID: [id number]
[2021-05-25] MEDS: cefTRIAXone 1 GM in SODIUM CHLORIDE 0.9% MINIBAG 100 ML IV SCH (10:14)
[2021-05-25] MEDS: HYDROmorphone 0.5 MG/0.5 ML SYRINGE IVP PRN ×2 (10:16→15:46)
[2021-05-25] MEDS: FUROSEMIDE 20 MG/2 ML VIAL IVP SCH ×2 (10:19→13:49)
[2021-05-25] MEDS: CALCIUM CARBONATE CHEW 500 MG TABLET PO SCH ×2 (10:21→21:17)
[2021-05-25] MEDS: ASPIRIN 325 MG TABLET PO SCH (10:21)
[2021-05-25] MEDS: CHOLECALCIFEROL 25 MCG TABLET PO SCH (10:22)
[2021-05-25] MEDS: ENOXAPARIN 40 MG/0.4 ML SYRINGE SUBQ SCH (10:25)
--- NOTE | 2021-05-25 10:47 | PROVIDER PROGRESS NOTE ---
Assessment/Plan - Problem List (1) Hip fracture Qualifiers: Encounter type: initial encounter Fracture type: closed Laterality: left Qualified Code(s): S72.002A - Fracture of unspecified part of neck of left femur, initial encounter for closed fracture Assessment/Plan: 05/25 s/p of left hip repair, we continue PT/OT, pain control, DVT prophylaxis with aspirin and Lovenox per surgeon's recommendation. Consult with social work for disposition planning see pt twice, she is at good sleeping. I talked with pt's brother and sister in law at the bedside. both state pt has no cardiac history, no home medications, she is doing well at home. we do not have ECHO service now at hospital. My colle shira had pre-operation assessment for pt, "Her ortega perioperative risk for myocardial infarction or cardiac arrest is approximately 0.3%". Orthopedics surgeon plan to have hip repair for pt at this afternoon, medical team will followup medical management for pt will continue pain control, PT/OT for pt, DVT prophylaxis is from surgeon's recommendation, now Patient is on Lovenox. Consult with social work for disposition planning (2) Respiratory failure with hypoxia 4/6 Patient needed 6 L oxymizer to support patient's 90 to 92% oxygen saturation after surgery, And tachycardia. Previous chest x-ray show Atypical pneumonia, new chest x-ray show pulmonary edema with CHF pattern. Patient smoked over 60 years, but right now she stopped smoking. We will treat underlying fluid overloaded with pulmonary edema, Atopica pneumonia, and CHF, Supplemental oxygen as needed. We do not have echo study service now. (3)Atypical pneumonia 4/6 Patient required 6 L oxygen to support, previous chest x-ray show Atypical pneumonia, patient had elevated WBC as well. We will treat her with azithromycin and Rocephin for Atopica pneumonia, Supplemental oxygen as needed (4)COPD 4/6 Patient Smoke over 60 years, Bilaterally significantly diminished lung sounds, We will treat albuterol Xopenex, Atrovent scheduled, And supplemental oxygen as needed (5)Pulmonary edema 4/6 Chest x-ray show pulmonary edema with CHF pattern. We do not have echo study service now. 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 - Current Meds Current Meds: Current Medications Generic Name Dose Route Start Last Admin Trade Name Freq PRN Reason Stop Dose Admin Acetaminophen 650 mg 04/04/22 16:24 05/25/21 06:37 Acetaminophen 325 Mg Tablet PO 650 mg Q4HR PRN Administration Pain 1 to 4, or Fever Aspirin 325 mg 05/25/21 08:00 05/25/21 10:21 Aspirin 325 Mg Tablet PO 325 mg DAILYWM MOE Administration Calcium Carbonate/Glycine 500 mg 05/24/21 21:00 05/25/21 10:21 Calcium Carbonate Chew 500 Mg Tablet PO 500 mg BID MOE Administration Cholecalciferol 50 mcg 05/25/21 09:00 05/25/21 10:22 Cholecalciferol 25 Mcg Tablet PO 50 mcg DAILY MOE Administration Enoxaparin Sodium 40 mg 05/25/21 09:00 05/25/21 10:25 Enoxaparin 40 Mg/0.4 Ml Syringe SUBQ 40 mg DAILY MOE Administration Furosemide 20 mg 05/25/21 08:00 05/25/21 10:19 Furosemide 20 Mg/2 Ml Vial IVP 20 mg BIDDIURETIC MOE Administration Hydromorphone HCl 0.5 mg 05/23/21 16:24 05/25/21 10:16 Hydromorphone 0.5 Mg/0.5 Ml Syringe IVP 0.5 mg Q2H PRN Administration Pain 8 to 10 Ceftriaxone Sodium 1 gm/ 100 mls @ 200 mls/hr 05/24/21 18:23 05/25/21 10:14 Sodium Chloride IV 200 mls/hr DAILY MOE Administration Azithromycin 500 mg/ Sodium 250 mls @ 250 mls/hr 05/24/21 18:24 05/24/21 21:02 Chloride IV 05/26/21 09:59 Infused DAILY MOE Infusion Ipratropium [place] 0.5 mg 05/24/21 19:00 05/25/21 07:14 Ipratropium 0.2 Mg/Ml Neb INH 0.5 mg RTQ4H MOE Administration Levalbuterol HCl 1.25 mg 05/24/21 18:42 05/25/21 07:14 Levalbuterol 1.25 Mg/3 Ml Neb INH 1.25 mg Q4H PRN Administration Shortness of Air/Wheezing Oxycodone HCl 5 mg 05/23/21 16:24 05/24/21 17:23 Oxycodone 5 Mg Tablet PO 5 mg Q4HR PRN Administration Pain 5 to 7 Sodium Chloride 10 ml 05/23/21 17:00 05/25/21 02:49 Sodium Chloride Flush 0.9% 10 Ml Syringe IVP Not Given 0100,0900,1700 MOE - Lab Result Fish Bone Diagrams: 05/25/21 04:59 05/25/21 04:59 - Additional Planning My Orders: My Active Orders 05/24/21 Dinner Regular Diet [DIET] 05/24/21 18:23 cefTRIAXone [Rocephin] 1 gm Sodium Chloride 0.9% Minibag [Normal Saline 0.9% Minibag] 100 ml IV DAILY 05/24/21 18:24 Azithromycin Inj [Zithromax Inj] 500 mg Sodium Chloride 0.9% [Normal Saline 0.9%] 250 ml IV DAILY 05/24/21 18:34 Nebulizer/MDI Tx. [RC] .QID 05/24/21 18:42 Resp Teach Nebulizer/MDI [RC] .ONCE Levalbuterol [Xopenex] 1.25 mg INH Q4H PRN 05/24/21 19:00 Ipratropium [Atrovent] 0.5 mg INH RTQ4H 05/24/21 21:00 Calcium Carbonate [Tums] 500 mg PO BID 05/25/21 07:35 Echo Transthoracic Complete [ECHO] Routine 05/25/21 08:00 FUROSEMIDE INJ 20mg VIAL [LASIX INJ 20mg VIAL] 20 mg IVP BIDDIURETIC 05/25/21 09:00 Cholecalciferol [Vitamin D3] 50 mcg PO DAILY Subjective - Subjective Patient Reports: Feeling Better, Resting Comfortably Objective Vital Signs: Vital Signs - 24 hr 05/24/21 05/24/21 05/24/21 15:21 15:25 15:30 Temperature 37.6 C Heart Rate 105 H 105 H 107 H Heart Rate [ Brachial] Heart Rate [ Radial] Respiratory 20 20 18 Rate Blood Pressure 142/77 H 170/88 H 174/82 H Blood Pressure [Left Brachial artery] Blood Pressure [Right Brachial artery] O2 Saturation 90 L 90 L 92 05/24/21 05/24/21 05/24/21 15:35 15:40 15:46 Temperature 37.2 C Heart Rate 108 H 106 H 105 H Heart Rate [ Brachial] Heart Rate [ Radial] Respiratory 18 17 18 Rate Blood Pressure 170/86 H 149/65 H 162/86 H Blood Pressure [Left Brachial artery] Blood Pressure [Right Brachial artery] O2 Saturation 94 95 98 05/24/21 05/24/21 05/24/21 15:50 15:56 16:05 Temperature Heart Rate 106 H 100 103 H Heart Rate [ Brachial] Heart Rate [ Radial] Respiratory 17 16 15 Rate Blood Pressure 126/77 149/76 H 143/55 H Blood Pressure [Left Brachial artery] Blood Pressure [Right Brachial artery] O2 Saturation 96 98 90 L 05/24/21 05/24/21 05/24/21 16:15 16:31 16:41 Temperature Heart Rate 103 H 98 99 Heart Rate [ Brachial] Heart Rate [ Radial] Respiratory 14 16 12 Rate Blood Pressure 123/78 136/65 H 129/65 Blood Pressure [Left Brachial artery] Blood Pressure [Right Brachial artery] O2 Saturation 91 L 91 L 90 L 05/24/21 05/24/21 05/24/21 16:55 16:57 17:00 Temperature 37.1 C Heart Rate Heart Rate [ Brachial] Heart Rate [ 101 H 97 Radial] Respiratory 17 18 Rate Blood Pressure Blood Pressure 139/77 H 130/72 [Left Brachial artery] Blood Pressure [Right Brachial artery] O2 Saturation 90 L 92 92 05/24/21 05/24/21 05/24/21 17:25 17:30 18:00 Temperature Heart Rate Heart Rate [ 100 99 96 Brachial] Heart Rate [ Radial] Respiratory 17 17 18 Rate Blood Pressure Blood Pressure 102/77 118/57 L 110/97 H [Left Brachial artery] Blood Pressure [Right Brachial artery] O2 Saturation 90 L 86 L 90 L 05/24/21 05/24/21 05/24/21 18:25 19:00 19:33 Temperature Heart Rate 91 Heart Rate [ 96 92 Brachial] Heart Rate [ Radial] Respiratory 16 16 20 Rate Blood Pressure Blood Pressure 123/44 L [Left Brachial artery] Blood Pressure 113/54 L [Right Brachial artery] O2 Saturation 90 L 92 05/24/21 05/25/21 05/25/21 23:39 07:13 07:15 Temperature 36.4 C L 36.9 C Heart Rate 81 Heart Rate [ 91 90 Brachial] Heart Rate [ Radial] Respiratory 16 18 16 Rate Blood Pressure Blood Pressure [Left Brachial artery] Blood Pressure 111/52 L 142/49 H [Right Brachial artery] O2 Saturation 90 L 92 Oxygen O2 Source Oxymizer I&O (Last 24 Hrs): Intake and Output Totals x24h 05/23/21 05/24/21 05/25/21 23:59 23:59 23:59 Intake Total 1200 2468.333 1590 Output Total 75 550 600 Balance 1125 1918.333 990 General: Alert, Oriented x3, Cooperative, No acute distress HEENT: Atraumatic Neck: Supple Lymphatic: no adenopathy Neuro: Alert, Non Focal, Oriented Times 3 Cardiovascular: Regular rate, Normal S1 Respiratory: Chest non-tender, No respiratory distress, Other (Diminished lung sounds bilaterally) Abdomen: Normal bowel sounds, Soft Extremities: Normal pulses - Results Results: Laboratory Results WBC 13.4 x10^3/uL (4.8-10.8) H 05/25/21 04:59 RBC 3.94 10^6/uL (4.20-5.40) L 05/25/21 04:59 Hgb 12.1 g/dL (12.0-16.0) 05/25/21 04:59 Hct 37.7 % (37.0-47.0) 05/25/21 04:59 MCV 95.7 fL (81.0-99.0) 05/25/21 04:59 MCH 30.7 pg (27.0-31.0) 05/25/21 04:59 MCHC 32.1 g/dL (32.0-36.0) 05/25/21 04:59 RDW 13.0 % (12.0-15.0) 05/25/21 04:59 Plt Count 264 10^3/uL (130-450) 05/25/21 04:59 MPV 9.6 fL (7.9-10.8) 05/25/21 04:59 Neut # (Auto) Not Reportable 05/25/21 04:59 Lymph # (Auto) Not Reportable 05/25/21 04:59 [place] # (Auto) Not Reportable 05/25/21 04:59 Eos # (Auto) Not Reportable 05/25/21 04:59 Baso # (Auto) Not Reportable 05/25/21 04:59 Absolute Nucleated RBC Not Reportable 05/25/21 04:59 Total Counted 100 05/25/21 04:59 Band Neuts % (Manual) 3 % (0-10) 04 04:59 Abnorm Lymph % (Manual) 0 % 05/25/21 04:59 Nucleated RBC % Not Reportable 05/25/21 04:59 Neutrophils # (Manual) 11.4 10^3/uL (1.5-6.6) H 05/25/21 04:59 Lymphocytes # (Manual) 1.2 10^3/uL (1.5-3.5) L 05/25/21 04:59 Monocytes # (Manual) 0.8 10^3/uL (0.0-1.0) 05/25/21 04:59 Eosinophils # (Manual) 0.0 10^3/uL (0-0.7) 05/25/21 04:59 Basophils # (Manual) 0.0 10^3/uL (0-0.1) 05/25/21 04:59 Differential Comment MANUAL DIFFERENTIAL 05/25/21 04:59 Platelet Estimate NORMAL (130-450,000) (NORMAL) 05/25/21 04:59 RBC Morph Micro Appear NORMAL APPEARANCE (NORMAL) 05/25/21 04:59 PT 13.9 secs (9.9-12.6) H 05/24/21 05:04 INR 1.3 (0.8-1.2) H 05/24/21 05:04 Sodium 137 mmol/L (135-145) 05/25/21 04:59 Potassium 4.1 mmol/L (3.5-5.0) 05/25/21 04:59 Chloride 105 mmol/L (101-111) 05/25/21 04:59 Carbon Dioxide 24 mmol/L (21-32) 05/25/21 04:59 Anion Gap 8.0 (6-13) 05/25/21 04:59 BUN 23 mg/dL (6-20) H 05/25/21 04:59 Creatinine 1.0 mg/dL (0.4-1.0) 05/25/21 04:59 Estimated GFR (MDRD) 52 (>89) L 05/25/21 04:59 Glucose 139 mg/dL (70-100) H 05/25/21 04:59 Calcium 8.5 mg/dL (8.5-10.3) 05/25/21 04:59 Total Bilirubin 1.3 mg/dL (0.2-1.0) H 05/23/21 14:26 AST 30 IU/L (10-42) 05/23/21 14:26 ALT 20 IU/L (10-60) 05/23/21 14:26 Alkaline Phosphatase 71 IU/L (42-121) 05/23/21 14:26 Total Creatine Kinase 394 IU/L (22-269) H 05/23/21 14:26 B-Natriuretic Peptide 415 pg/mL (5-100) H 05/25/21 04:59 Total Protein 7.7 g/dL (6.7-8.2) 05/23/21 14:26 Albumin 4.1 g/dL (3.2-5.5) 05/23/21 14:26 Globulin 3.6 g/dL (2.1-4.2) 05/23/21 14:26 Albumin/Globulin Ratio 1.1 (1.0-2.2) 05/23/21 14:26 Lipase 36 U/L (22-51) 05/23/21 14:26 Nasal Adenovirus (PCR) NOT DETECTED 05/23/21 14:10 Nasal B. parapertussis DNA (PCR) NOT DETECTED 05/23/21 14:10 Nasal Coronavir 229E PCR NOT DETECTED 05/23/21 14:10 Nasal Coronavir HKU1 PCR NOT DETECTED 05/23/21 14:10 Nasal Coronavir NL63 PCR NOT DETECTED 05/23/21 14:10 Nasal Coronavir OC43 PCR NOT DETECTED 05/23/21 14:10 Nasal Enterovir/Rhinovir PCR NOT DETECTED 05/23/21 14:10 Nasal Influenza B PCR NOT DETECTED 05/23/21 14:10 Nasal Influenza A PCR NOT DETECTED 05/23/21 14:10 Nasal Parainfluen 1 PCR NOT DETECTED 05/23/21 14:10 Nasal Parainfluen 2 PCR NOT DETECTED 05/23/21 14:10 Nasal Parainfluen 3 PCR NOT DETECTED 05/23/21 14:10 Nasal Parainfluen 4 PCR NOT DETECTED 05/23/21 14:10 Nasal RSV (PCR) NOT DETECTED 05/23/21 14:10 Nasal B.pertussis DNA PCR NOT DETECTED 05/23/21 14:10 Nasal C.pneumoniae (PCR) NOT DETECTED 05/23/21 14:10 Jhony Human Metapneumo PCR NOT DETECTED 05/23/21 14:10 Nasal M.pneumoniae (PCR) NOT DETECTED 05/23/21 14:10 Nasal SARS-CoV-2 (PCR) NOT DETECTED 05/23/21 14:10 ABX Reporting Has patient been on IV antibiotics over the past 48 hours?: Yes Current Medications - Current Medications Current Medications: Active Medications Acetaminophen (Acetaminophen 325 Mg Tablet) 650 mg PO Q4HR PRN PRN Reason: Pain 1 to 4, or Fever Last Admin: 05/25/21 06:37 Dose: 650 mg Aspirin (Aspirin 325 Mg Tablet) 325 mg PO DAILYWM ON LICENSE OF [facility] Last Admin: 05/25/21 10:21 Dose: 325 mg Calcium Carbonate/Glycine (Calcium Carbonate Chew 500 Mg Tablet) 500 mg PO BID ON LICENSE OF [facility] Last Admin: 05/25/21 10:21 Dose: 500 mg Cholecalciferol (Cholecalciferol 25 Mcg Tablet) 50 mcg PO DAILY ON LICENSE OF [facility] Last Admin: 05/25/21 10:22 Dose: 50 mcg Enoxaparin Sodium (Enoxaparin 40 Mg/0.4 Ml Syringe) 40 mg SUBQ DAILY ON LICENSE OF [facility] Last Admin: 05/25/21 10:25 Dose: 40 mg Furosemide (Furosemide 20 Mg/2 Ml Vial) 20 mg IVP BIDDIURETIC ON LICENSE OF [facility] Last Admin: 05/25/21 10:19 Dose: 20 mg Hydromorphone HCl (Hydromorphone 0.5 Mg/0.5 Ml Syringe) 0.5 mg IVP Q2H PRN PRN Reason: Pain 8 to 10 Last Admin: 05/25/21 10:16 Dose: 0.5 mg Ceftriaxone Sodium 1 gm/ (Sodium Chloride) 100 mls @ 200 mls/hr IV DAILY ON LICENSE OF [facility] Last Admin: 05/25/21 10:14 Dose: 200 mls/hr Azithromycin 500 mg/ Sodium (Chloride) 250 mls @ 250 mls/hr IV DAILY MOE Stop: 05/26/21 09:59 Last Infusion: 05/24/21 21:02 Dose: Infused Ipratropium [place] (Ipratropium 0.2 Mg/Ml Neb) 0.5 mg INH RTQ4H MOE Last Admin: 05/25/21 07:14 Dose: 0.5 mg Levalbuterol HCl (Levalbuterol 1.25 Mg/3 Ml Neb) 1.25 mg INH Q4H PRN PRN Reason: Shortness of Air/Wheezing Last Admin: 05/25/21 07:14 Dose: 1.25 mg Ondansetron HCl (Ondansetron 4 Mg/2 Ml Vial) 4 mg IVP Q6HR PRN PRN Reason: Nausea / Vomiting Oxycodone HCl (Oxycodone 5 Mg Tablet) 5 mg PO Q4HR PRN PRN Reason: Pain 5 to 7 Last Admin: 05/24/21 17:23 Dose: 5 mg Sodium Chloride (Sodium Chloride Flush 0.9% 10 Ml Syringe) 10 ml IVP PRN PRN PRN Reason: NEEDED PER PROVIDER ORDERS Sodium Chloride (Sodium Chloride Flush 0.9% 10 Ml Syringe) 10 ml IVP 0100,0900,1700 MOE Last Admin: 05/25/21 02:49 Dose: Not Given No Known Home Medications 05/24/21
[2021-05-25] MEDS: AZITHROMYCIN INJ 500 MG in SODIUM CHLORIDE 0.9% 250 ML IV SCH (11:43)
[2021-05-25] MEDS: oxyCODONE 5 MG TABLET PO PRN (13:50)
[2021-05-25] MEDS: SODIUM CHLORIDE FLUSH 0.9% 10 ML SYRINGE IVP PRN (13:51)
--- NOTE | 2021-05-25 14:38 | PROVIDER PROGRESS NOTE ---
Subjective - General Admit Date: 05/23/21 Procedure Date: 05/24/21 Post Op Days: 1 Procedure Performed: Left Hip hemiarthroplasty - Review of Systems Wound/Incisions: positive: Dressing dry and intact General: negative: Fever, Chills Cardiovascular: negative: Chest pain Gastrointestinal: negative: Nausea, Vomiting Musculoskeletal: positive: Joint pain Skin: positive: No symptoms Psychiatric: positive: Confusion All Other Systems: positive: Reviewed and negative - Other Other Information/Narrative: Patient is a 89-year-old female who is postop day 1 a left hip hemiarthroplasty performed by Dr Chidi Gray at [facility] on 05/25/2021. Patient has a medical history of emphysema COPD And her oxygens saturation on room air was found to be under 90% is currently on 6 L of O2 satting above 92/93. Patient reports mild left joint pain, Patient denies any signs or symptoms of infection. Pain well controlled, she has a little confusion at baseline but is responsive and follows direction. Objective - Patient Data Reviewed Vital Signs: Yes Vital Signs: Vital Signs x48h Temp Pulse Pulse Resp BP Pulse Ox 05/25/21 11:32 88 14 05/25/21 07:15 81 16 05/25/21 07:13 36.9 C 90 18 142/49 H 92 Weight: Weight 05/23/21 05/24/21 05/25/21 23:59 23:59 23:59 Weight (kg) 49 kg 49 kg Intake & Output: Intake and Output Totals x24h 05/23/21 05/24/21 05/25/21 23:59 23:59 23:59 Intake Total 1200 2468.333 2340 Output Total 75 550 1150 Balance 1125 6648.294 5760 - Lab Results Lab Results: 05/25/21 04:59 05/25/21 04:59 Other Lab Results: Lab Results x24hrs 05/25/21 05/25/21 05/25/21 Range/Units 04:59 04:59 04:59 WBC 13.4 H (4.8-10.8) x10^3/uL RBC 3.94 L (4.20-5.40) 10^6/uL Hgb 12.1 (12.0-16.0) g/dL Hct 37.7 (37.0-47.0) % MCV 95.7 (81.0-99.0) fL MCH 30.7 (27.0-31.0) pg MCHC 32.1 (32.0-36.0) g/dL RDW 13.0 (12.0-15.0) % Plt Count 264 (130-450) 10^3/uL MPV 9.6 (7.9-10.8) fL Neut # (Auto) Not Reportable Lymph # (Auto) Not Reportable [place] # (Auto) Not Reportable Eos # (Auto) Not Reportable Baso # (Auto) Not Reportable Absolute Nucleated RBC Not Reportable Total Counted 100 Band Neuts % (Manual) 3 (0 - 10) % Abnorm Lymph % (Manual) 0 % Nucleated RBC % Not Reportable Neutrophils # (Manual) 11.4 H (1.5-6.6) 10^3/uL Lymphocytes # (Manual) 1.2 L (1.5-3.5) 10^3/uL Monocytes # (Manual) 0.8 (0.0-1.0) 10^3/uL Eosinophils # (Manual) 0.0 (0-0.7) 10^3/uL Basophils # (Manual) 0.0 (0-0.1) 10^3/uL Differential Comment MANUAL DIFFERENTIAL Platelet Estimate NORMAL (130-450,000) (NORMAL) RBC Morph Micro Appear NORMAL APPEARANCE (NORMAL) Sodium 137 (135-145) mmol/L Potassium 4.1 (3.5-5.0) mmol/L Chloride 105 (101-111) mmol/L Carbon Dioxide 24 (21-32) mmol/L Anion Gap 8.0 (6-13) BUN 23 H (6-20) mg/dL Creatinine 1.0 (0.4-1.0) mg/dL Estimated GFR (MDRD) 52 L (>89) Glucose 139 H (70-100) mg/dL Calcium 8.5 (8.5-10.3) mg/dL B-Natriuretic Peptide 415 H (5-100) pg/mL - Imaging Results Radiology Imaging: positive: See rad report - Current Medications Current Medications: Current Medications Generic Name Dose Route Start Last Admin Trade Name Freq PRN Reason Stop Dose Admin Acetaminophen 650 mg 05/23/21 16:24 05/25/21 06:37 Acetaminophen 325 Mg Tablet PO 650 mg Q4HR PRN Administration Pain 1 to 4, or Fever Aspirin 325 mg 05/25/21 08:00 05/25/21 10:21 Aspirin 325 Mg Tablet PO 325 mg DAILYWM MOE Administration Calcium Carbonate/Glycine 500 mg 05/24/21 21:00 05/25/21 10:21 Calcium Carbonate Chew 500 Mg Tablet PO 500 mg BID MOE Administration Cholecalciferol 50 mcg 05/25/21 09:00 05/25/21 10:22 Cholecalciferol 25 Mcg Tablet PO 50 mcg DAILY MOE Administration Enoxaparin Sodium 40 mg 05/25/21 09:00 05/25/21 10:25 Enoxaparin 40 Mg/0.4 Ml Syringe SUBQ 40 mg DAILY MOE Administration Furosemide 20 mg 05/25/21 08:00 05/25/21 13:49 Furosemide 20 Mg/2 Ml Vial IVP 20 mg BIDDIURETIC MOE Administration Hydromorphone HCl 0.5 mg 05/23/21 16:24 05/25/21 10:16 Hydromorphone 0.5 Mg/0.5 Ml Syringe IVP 0.5 mg Q2H PRN Administration Pain 8 to 10 Ceftriaxone Sodium 1 gm/ 100 mls @ 200 mls/hr 05/24/21 18:23 05/25/21 11:30 Sodium Chloride IV Infused DAILY MOE Infusion Azithromycin 500 mg/ Sodium 250 mls @ 250 mls/hr 05/24/21 18:24 05/25/21 13:03 Chloride IV 05/26/21 09:59 Infused DAILY MOE Infusion Ipratropium [place] 0.5 mg 05/24/21 19:00 05/25/21 11:31 Ipratropium 0.2 Mg/Ml Neb INH 0.5 mg RTQ4H MOE Administration Levalbuterol HCl 1.25 mg 05/24/21 18:42 05/25/21 11:31 Levalbuterol 1.25 Mg/3 Ml Neb INH 1.25 mg Q4H PRN Administration Shortness of Air/Wheezing Oxycodone HCl 5 mg 05/23/21 16:24 05/25/21 13:50 Oxycodone 5 Mg Tablet PO 5 mg Q4HR PRN Administration Pain 5 to 7 Sodium Chloride 10 ml 05/23/21 16:24 05/25/21 13:51 Sodium Chloride Flush 0.9% 10 Ml Syringe IVP 10 ml PRN PRN Administration NEEDED PER PROVIDER ORDERS Sodium Chloride 10 ml 05/23/21 17:00 05/25/21 11:47 Sodium Chloride Flush 0.9% 10 Ml Syringe IVP 10 ml 0100,0900,1700 [facility] Administration - Physical Exam Wound/Incisions: positive: Dressing dry and intact General Appearance: positive: No acute distress, Alert Respiratory: positive: No respiratory distress, Wheezes Skin: positive: Color nml, No rash, Warm, Dry Extremities: positive: Joint swelling Neurologic/Psychiatric: positive: Motor nml, Sensation nml ABX Reporting Has patient been on IV antibiotics over the past 48 hours?: Yes Impression/Plan - Problem List Problem List: Patient is an 89-year-old female with a history including emphysema, COPD who is postop day 1 after left hip hemiarthroplasty performed by Dr Chidi Gray at [facility] on 05/24/2021. Patient shows no signs or symptoms of infection her pain is well controlled. She has been Desaturation on room air and the hospitalist is put her on 6 L of O2 and is responding well. Patient is weightbearing as tolera zacarias in a front wheeled walker, she should continue to get PT/OT to get up in bed, to chair and to bathroom. Patient is cleared for discharge from an orthopedic surgical standpoint.
[2021-05-26] MEDS: oxyCODONE 5 MG TABLET PO PRN ×2 (00:44→11:11)
[2021-05-26] MEDS: KETOROLAC 15 MG/ML VIAL IVP PRN ×3 (01:02→22:03)
[2021-05-26] MEDS: SODIUM CHLORIDE FLUSH 0.9% 10 ML SYRINGE IVP SCH ×3 (01:02→16:18)
[2021-05-26 06:00] LABS: BASOPHILS % (AUTO) 0.3 %; EOSINOPHILS % (AUTO) 0.3 %; HCT - HEMATOCRIT 34.4 % (37.0-47.0); HGB - HEMOGLOBIN 11.2 g/dL (12.0-16.0); LYMPHOCYTES # (AUTO) 0.9 10^3/uL (1.5-3.5); LYMPHOCYTES % (AUTO) 8.4 %; MEAN CORPUSCULAR HEMOGLOBIN 30.5 pg (27.0-31.0); MEAN CORPUSCULAR HGB CONC 32.6 g/dL (32.0-36.0); MEAN CORPUSCULAR VOLUME 93.7 fL (81.0-99.0); MONOCYTES # (AUTO) 1.2 10^3/uL (0.0-1.0); MONOCYTES % (AUTO) 10.8 %; NEUTROPHILS # (AUTO) 8.6 10^3/uL (1.5-6.6); NEUTROPHILS % (AUTO) 79.8 %; PLT - PLATELET COUNT 240 10^3/uL (130-450); RED BLOOD COUNT 3.67 10^6/uL (4.20-5.40); RED CELL DISTRIBUTION WIDTH 12.8 % (12.0-15.0); WHITE BLOOD COUNT 10.8 x10^3/uL (4.8-10.8)
[2021-05-26 06:07] LABS: CALCIUM 8.7 mg/dL (8.5-10.3); CREATININE 1.4 mg/dL (0.4-1.0); POTASSIUM 3.9 mmol/L (3.5-5.0)
[2021-05-26] MEDS: FUROSEMIDE 20 MG/2 ML VIAL IVP SCH (06:25)
[2021-05-26] MEDS: IPRATROPIUM 0.2 MG/ML NEB INH SCH ×4 (07:53→19:49)
[2021-05-26] MEDS: LEVALBUTEROL 1.25 MG/3 ML NEB INH PRN ×3 (07:53→19:49)
[2021-05-26] MEDS: BUDESONIDE 0.5 MG/2 ML NEB INH SCH ×2 (07:56→19:49)
[2021-05-26] MEDS: ASPIRIN 325 MG TABLET PO SCH (08:26)
[2021-05-26] MEDS: CALCIUM CARBONATE CHEW 500 MG TABLET PO SCH ×2 (08:26→20:52)
[2021-05-26] MEDS: PANTOPRAZOLE 40 MG TABLET PO SCH (08:26)
[2021-05-26] MEDS: cefTRIAXone 1 GM in SODIUM CHLORIDE 0.9% MINIBAG 100 ML IV SCH (08:30)
[2021-05-26] MEDS: CHOLECALCIFEROL 25 MCG TABLET PO SCH (08:36)
[2021-05-26] MEDS: ENOXAPARIN 40 MG/0.4 ML SYRINGE SUBQ SCH (08:39)
[2021-05-26] MEDS ORDERED: polyethylene glycoL 3350 17 GM PACKET PO PRN (09:08)
[2021-05-26] MEDS: AZITHROMYCIN INJ 500 MG in SODIUM CHLORIDE 0.9% 250 ML IV SCH (10:11)
[2021-05-26] MEDS ORDERED: polyethylene glycoL 3350 17 GM PACKET PO ONE (10:30)
[2021-05-26] MEDS: LORazepam 0.5 MG TABLET PO PRN (10:48)
--- NOTE | 2021-05-26 10:53 | PROVIDER PROGRESS NOTE ---
Assessment/Plan - Problem List (1) Hip fracture Qualifiers: Encounter type: initial encounter Fracture type: closed Laterality: left Qualified Code(s): S72.002A - Fracture of unspecified part of neck of left femur, initial encounter for closed fracture Assessment/Plan: 05/26 we add Toradol, dilaudid, oxycodone, Tylenol for patient's pain control as needed. Also we add MiraLAX for bowel movement as needed, Nurse may initiate protocol for bowel movement. We will continue PT and OT evaluation and treatment, continue consult with social work for disposition planning. 05/25 s/p of left hip repair, we continue PT/OT, pain control, DVT prophylaxis with aspirin and Lovenox per surgeon's recommendation. Consult with social work for disposition planning see pt twice, she is at good sleeping. I talked with pt's brother and sister in law at the bedside. both state pt has no cardiac history, no home medications, she is doing well at home. we do not have ECHO service now at hospital. My colleague had pre-operation assessment for pt, "Her ortega perioperative risk for myocardial infarction or cardiac arrest is approximately 0.3%". Orthopedics surgeon plan to have hip repair for pt at this afternoon, medical team will followup medical management for pt will continue pain control, PT/OT for pt, DVT prophylaxis is from surgeon's recommendation, now Patient is on Lovenox. Consult with social work for disposition planning (2) Respiratory failure with hypoxia 47, patient does not present acute respiratory distress and she feel comfortable, patient had 92 to 96% oxygen saturation on 6 L oxymizer. We will treat underlying COPD, Atypical pneumonia, and pulmonary edema / Patient needed 6 L oxymizer to support patient's 90 to 92% oxygen saturation after surgery, And tachycardia. Previous chest x-ray show Atypical pneumonia, new chest x-ray show pulmonary edema with CHF pattern. Patient smoked over 60 years, but right now she stopped smoking. We will treat underlying fluid overloaded with pulmonary edema, Atopica pneumonia, and CHF, Supplemental oxygen as needed. We do not have echo study service now. (3)Atypical pneumonia 05/25 Patient required 6 L oxygen to support, previous chest x-ray show Atypical pneumonia, patient had elevated WBC as well. We will treat her with azithromycin and Rocephin for Atopica pneumonia, Supplemental oxygen as needed (4)COPD 05/26 we add Pulmicort, Continue xopenex, atrovent, And supplemental oxygen as needed 05/25 Patient Smoke over 60 years, Bilaterally significantly diminished lung sounds, We will treat albuterol Xopenex, Atrovent scheduled, And supplemental oxygen as needed (5)Pulmonary edema 47, Because the patient's creatitine is increased, We will reduce Lasix to 20 mg PO daily 05/25 Chest x-ray show pulmonary edema with CHF pattern. We do not have echo study service now. 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 - Current Meds Current Meds: Current Medications Generic Name Dose Route Start Last Admin Trade Name Freq PRN Reason Stop Dose Admin Acetaminophen 650 mg 05/23/21 16:24 05/25/21 06:37 Acetaminophen 325 Mg Tablet PO 650 mg Q4HR PRN Administration Pain 1 to 4, or Fever Aspirin 325 mg 05/25/21 08:00 05/26/21 08:26 Aspirin 325 Mg Tablet PO 325 mg DAILYWM MOE Administration Budesonide 0.5 mg 05/26/21 07:44 05/26/21 07:56 Budesonide 0.5 Mg/2 Ml Neb INH Not Given RTBID MOE Calcium Carbonate/Glycine 500 mg 05/24/21 21:00 05/26/21 08:26 Calcium Carbonate Chew 500 Mg Tablet PO 500 mg BID MOE Administration Cholecalciferol 50 mcg 05/25/21 09:00 05/26/21 08:36 Cholecalciferol 25 Mcg Tablet PO 50 mcg DAILY MOE Administration Enoxaparin Sodium 40 mg 05/25/21 09:00 05/26/21 08:39 Enoxaparin 40 Mg/0.4 Ml Syringe SUBQ 40 mg DAILY MOE Administration Hydromorphone HCl 0.5 mg 05/23/21 16:24 05/25/21 15:46 Hydromorphone 0.5 Mg/0.5 Ml Syringe IVP 0.5 mg Q2H PRN Administration Pain 8 to 10 Ceftriaxone Sodium 1 gm/ 100 mls @ 200 mls/hr 05/24/21 18:23 05/26/21 09:29 Sodium Chloride IV Infused DAILY MOE Infusion Ipratropium [place] 0.5 mg 05/24/21 19:00 05/26/21 07:53 Ipratropium 0.2 Mg/Ml Neb INH 0.5 mg RTQ4H MOE Administration Ketorolac Tromethamine 15 mg 05/25/21 15:42 05/26/21 01:02 Ketorolac 15 Mg/Ml Vial IVP 05/30/21 15:41 15 mg Q6HR PRN Administration PAIN Levalbuterol HCl 1.25 mg 05/24/21 18:42 05/26/21 07:53 Levalbuterol 1.25 Mg/3 Ml Neb INH 1.25 mg Q4H PRN Administration Shortness of Air/Wheezing Oxycodone HCl 5 mg 05/23/21 16:24 05/26/21 00:44 Oxycodone 5 Mg Tablet PO 5 mg Q4HR PRN Administration Pain 5 to 7 Pantoprazole Sodium 40 mg 05/26/21 08:00 05/26/21 08:26 Pantoprazole 40 Mg Tablet PO 40 mg QDAC MOE Administration Sodium Chloride 10 ml 05/23/21 16:24 05/25/21 13:51 Sodium Chloride Flush 0.9% 10 Ml Syringe IVP 10 ml PRN PRN Administration NEEDED PER PROVIDER ORDERS Sodium Chloride 10 ml 05/23/21 17:00 05/26/21 08:25 Sodium Chloride Flush 0.9% 10 Ml Syringe IVP 10 ml 0100,0900,1700 MOE Administration - Lab Result Fish Bone Diagrams: 05/26/21 04:58 05/26/21 04:58 - Additional Planning My Orders: My Active Orders 05/25/21 15:42 Ketorolac Inj (15Mg) [Toradol Inj (15Mg)] 15 mg IVP Q6HR PRN 05/25/21 15:55 LORazepam [Ativan] 0.25 mg PO Q12H PRN 05/26/21 07:44 Nebulizer/MDI Tx. [RC] QID Resp Teach Nebulizer/MDI [RC] .ONCE Budesonide [Pulmicort] 0.5 mg INH RTBID 05/26/21 08:00 Pantoprazole [Protonix] 40 mg PO QDAC 05/26/21 09:08 polyethylene glycoL 3350 [Miralax] 17 gm PO DAILY PRN 05/27/21 05:00 BMP - BASIC METABOLIC PANEL [CHEM] DAILYLAB CBC - COMP BLD CT W/AUTO DIFF [HEME] DAILYLAB 05/27/21 09:00 Furosemide [Lasix] 20 mg PO DAILY 05/28/21 05:00 BMP - BASIC METABOLIC PANEL [CHEM] DAILYLAB CBC - COMP BLD CT W/AUTO DIFF [HEME] DAILYLAB 05/29/21 05:00 BMP - BASIC METABOLIC PANEL [CHEM] DAILYLAB CBC - COMP BLD CT W/AUTO DIFF [HEME] DAILYLAB 05/30/21 05:00 BMP - BASIC METABOLIC PANEL [CHEM] DAILYLAB CBC - COMP BLD CT W/AUTO DIFF [HEME] DAILYLAB 05/31/21 05:00 BMP - BASIC METABOLIC PANEL [CHEM] DAILYLAB CBC - COMP BLD CT W/AUTO DIFF [HEME] DAILYLAB 06/01/21 05:00 BMP - BASIC METABOLIC PANEL [CHEM] DAILYLAB CBC - COMP BLD CT W/AUTO DIFF [HEME] DAILYLAB Subjective - Subjective Patient Reports: Resting Comfortably Objective Vital Signs: Vital Signs - 24 hr 05/25/21 05/25/21 05/25/21 11:32 14:50 15:20 Temperature Heart Rate 88 83 Heart Rate [ 117 H Activity] Heart Rate [ Brachial] Heart Rate [ 92 Supine] Respiratory 14 14 Rate Blood Pressure 156/67 H [Activity] Blood Pressure [Left Brachial artery] Blood Pressure 120/52 L [Supine] O2 Saturation 05/25/21 05/25/21 05/25/21 15:37 19:30 23:46 Temperature 36.3 C L Heart Rate 94 Heart Rate [ Activity] Heart Rate [ 91 100 Brachial] Heart Rate [ Supine] Respiratory 16 20 18 Rate Blood Pressure [Activity] Blood Pressure 120/52 L 159/63 H [Left Brachial artery] Blood Pressure [Supine] O2 Saturation 96 92 05/26/21 05/26/21 05/26/21 04:10 07:56 08:10 Temperature 36.3 C L 36.5 C Heart Rate 100 67 Heart Rate [ Activity] Heart Rate [ 89 Brachial] Heart Rate [ Supine] Respiratory 18 14 18 Rate Blood Pressure [Activity] Blood Pressure 157/66 H [Left Brachial artery] Blood Pressure [Supine] O2 Saturation 92 92 Oxygen O2 Source Oxymizer I&O (Last 24 Hrs): Intake and Output Totals x24h 05/24/21 05/25/21 05/26/21 23:59 23:59 23:59 Intake Total 2468.333 2820 830 Output Total 550 1400 850 Balance 9388.315 7534 -20 General: Alert, Oriented x3, No acute distress HEENT: Atraumatic Neck: Supple Lymphatic: no adenopathy Neuro: Alert, Non Focal, Oriented Times 3 Cardiovascular: Regular rate, Normal S1, Normal S2 Respiratory: Chest non-tender, No respiratory distress Abdomen: Normal bowel sounds, Soft Extremities: Normal pulses - Results Results: Laboratory Results WBC 10.8 x10^3/uL (4.8-10.8) 05/26/21 04:58 RBC 3.67 10^6/uL (4.20-5.40) L 05/26/21 04:58 Hgb 11.2 g/dL (12.0-16.0) L 05/26/21 04:58 Hct 34.4 % (37.0-47.0) L 05/26/21 04:58 MCV 93.7 fL (81.0-99.0) 05/26/21 04:58 MCH 30.5 pg (27.0-31.0) 05/26/21 04:58 MCHC 32.6 g/dL (32.0-36.0) 05/26/21 04:58 RDW 12.8 % (12.0-15.0) 05/26/21 04:58 Plt Count 240 10^3/uL (130-450) 05/26/21 04:58 MPV 10.0 fL (7.9-10.8) 05/26/21 04:58 Neut # (Auto) 8.6 10^3/uL (1.5-6.6) H 05/26/21 04:58 Lymph # (Auto) 0.9 10^3/uL (1.5-3.5) L 05/26/21 04:58 [place] # (Auto) 1.2 10^3/uL (0.0-1.0) H 05/26/21 04:58 Eos # (Auto) 0.0 10^3/uL (0.0-0.7) 05/26/21 04:58 Baso # (Auto) 0.0 10^3/uL (0.0-0.1) 05/26/21 04:58 Absolute Nucleated RBC 0.00 x10^3/uL 05/26/21 04:58 Total Counted 100 05/25/21 04:59 Band Neuts % (Manual) 3 % (0-10) 05/25/21 04:59 Abnorm Lymph % (Manual) 0 % 05/25/21 04:59 Nucleated RBC % 0.0 /100WBC 05/26/21 04:58 Neutrophils # (Manual) 11.4 10^3/uL (1.5-6.6) H 05/25/21 04:59 Lymphocytes # (Manual) 1.2 10^3/uL (1.5-3.5) L 05/25/21 04:59 Monocytes # (Manual) 0.8 10^3/uL (0.0-1.0) 05/25/21 04:59 Eosinophils # (Manual) 0.0 10^3/uL (0-0.7) 05/25/21 04:59 Basophils # (Manual) 0.0 10^3/uL (0-0.1) 05/25/21 04:59 Differential Comment MANUAL DIFFERENTIAL 05/25/21 04:59 Platelet Estimate NORMAL (130-450,000) (NORMAL) 05/25/21 04:59 RBC Morph Micro Appear NORMAL APPEARANCE (NORMAL) 05/25/21 04:59 PT 13.9 secs (9.9-12.6) H 05/24/21 05:04 INR 1.3 (0.8-1.2) H 05/24/21 05:04 Sodium 136 mmol/L (135-145) 05/26/21 04:58 Potassium 3.9 mmol/L (3.5-5.0) 05/26/21 04:58 Chloride 104 mmol/L (101-111) 05/26/21 04:58 Carbon Dioxide 24 mmol/L (21-32) 05/26/21 04:58 Anion Gap 8.0 (6-13) 05/26/21 04:58 BUN 30 mg/dL (6-20) H 05/26/21 04:58 Creatinine 1.4 mg/dL (0.4-1.0) H 05/26/21 04:58 Estimated GFR (MDRD) 35 (>89) L 05/26/21 04:58 Glucose 139 mg/dL (70-100) H 05/26/21 04:58 Calcium 8.7 mg/dL (8.5-10.3) 05/26/21 04:58 Total Bilirubin 1.3 mg/dL (0.2-1.0) H 05/23/21 14:26 AST 30 IU/L (10-42) 05/23/21 14:26 ALT 20 IU/L (10-60) 05/23/21 14:26 Alkaline Phosphatase 71 IU/L (42-121) 05/23/21 14:26 Total Creatine Kinase 394 IU/L (22-269) H 05/23/21 14:26 B-Natriuretic Peptide 274 pg/mL (5-100) H 05/26/21 04:58 Total Protein 7.7 g/dL (6.7-8.2) 05/23/21 14:26 Albumin 4.1 g/dL (3.2-5.5) 05/23/21 14:26 Globulin 3.6 g/dL (2.1-4.2) 05/23/21 14:26 Albumin/Globulin Ratio 1.1 (1.0-2.2) 05/23/21 14:26 Lipase 36 U/L (22-51) 05/23/21 14:26 Nasal Adenovirus (PCR) NOT DETECTED 05/23/21 14:10 Nasal B. parapertussis DNA (PCR) NOT DETECTED 05/23/21 14:10 Nasal Coronavir 229E PCR NOT DETECTED 05/23/21 14:10 Nasal Coronavir HKU1 PCR NOT DETECTED 05/23/21 14:10 Nasal Coronavir NL63 PCR NOT DETECTED 05/23/21 14:10 Nasal Coronavir OC43 PCR NOT DETECTED 05/23/21 14:10 Nasal Enterovir/Rhinovir PCR NOT DETECTED 05/23/21 14:10 Nasal Influenza B PCR NOT DETECTED 05/23/21 14:10 Nasal Influenza A PCR NOT DETECTED 05/23/21 14:10 Nasal Parainfluen 1 PCR NOT DETECTED 05/23/21 14:10 Nasal Parainfluen 2 PCR NOT DETECTED 05/23/21 14:10 Nasal Parainfluen 3 PCR NOT DETECTED 05/23/21 14:10 Nasal Parainfluen 4 PCR NOT DETECTED 05/23/21 14:10 Nasal RSV (PCR) NOT DETECTED 05/23/21 14:10 Nasal B.pertussis DNA PCR NOT DETECTED 05/23/21 14:10 Nasal C.pneumoniae (PCR) NOT DETECTED 05/23/21 14:10 Jhony Human Metapneumo PCR NOT DETECTED 05/23/21 14:10 Nasal M.pneumoniae (PCR) NOT DETECTED 05/23/21 14:10 Nasal SARS-CoV-2 (PCR) NOT DETECTED 05/23/21 14:10 ABX Reporting Has patient been on IV antibiotics over the past 48 hours?: Yes Current Medications - Current Medications Current Medications: Active Medications Acetaminophen (Acetaminophen 325 Mg Tablet) 650 mg PO Q4HR PRN PRN Reason: Pain 1 to 4, or Fever Last Admin: 05/25/21 06:37 Dose: 650 mg Aspirin (Aspirin 325 Mg Tablet) 325 mg PO DAILYWM [facility] Last Admin: 05/26/21 08:26 Dose: 325 mg Budesonide (Budesonide 0.5 Mg/2 Ml Neb) 0.5 mg INH RTBID [facility] Last Admin: 05/26/21 07:56 Dose: Not Given Calcium Carbonate/Glycine (Calcium Carbonate Chew 500 Mg Tablet) 500 mg PO BID [facility] Last Admin: 05/26/21 08:26 Dose: 500 mg Cholecalciferol (Cholecalciferol 25 Mcg Tablet) 50 mcg PO DAILY [facility] Last Admin: 05/26/21 08:36 Dose: 50 mcg Enoxaparin Sodium (Enoxaparin 40 Mg/0.4 Ml Syringe) 40 mg SUBQ DAILY [facility] Last Admin: 05/26/21 08:39 Dose: 40 mg Furosemide (Furosemide 20 Mg Tablet) 20 mg PO DAILY [facility] Hydromorphone HCl (Hydromorphone 0.5 Mg/0.5 Ml Syringe) 0.5 mg IVP Q2H PRN PRN Reason: Pain 8 to 10 Last Admin: 05/25/21 15:46 Dose: 0.5 mg Ceftriaxone Sodium 1 gm/ (Sodium Chloride) 100 mls @ 200 mls/hr IV DAILY [facility] Last Infusion: 05/26/21 09:29 Dose: Infused Ipratropium [place] (Ipratropium 0.2 Mg/Ml Neb) 0.5 mg INH RTQ4H [facility] Last Admin: 05/26/21 10:46 Dose: 0.5 mg Ketorolac Tromethamine (Ketorolac 15 Mg/Ml Vial) 15 mg IVP Q6HR PRN PRN Reason: PAIN Stop: 05/30/21 15:41 Last Admin: 05/26/21 01:02 Dose: 15 mg Levalbuterol HCl (Levalbuterol 1.25 Mg/3 Ml Neb) 1.25 mg INH Q4H PRN PRN Reason: Shortness of Air/Wheezing Last Admin: 05/26/21 07:53 Dose: 1.25 mg Lorazepam (Lorazepam 0.5 Mg Tablet) 0.25 mg PO Q12H PRN PRN Reason: Anxiety Last Admin: 05/26/21 10:48 Dose: 0.25 mg Ondansetron HCl (Ondansetron 4 Mg/2 Ml Vial) 4 mg IVP Q6HR PRN PRN Reason: Nausea / Vomiting Oxycodone HCl (Oxycodone 5 Mg Tablet) 5 mg PO Q4HR PRN PRN Reason: Pain 5 to 7 Last Admin: 05/26/21 00:44 Dose: 5 mg Pantoprazole Sodium (Pantoprazole 40 Mg Tablet) 40 mg PO QDAC [facility] Last Admin: 05/26/21 08:26 Dose: 40 mg Polyethylene Glycol (Polyethylene Glycol 3350 17 Gm Packet) 17 gm PO DAILY PRN PRN Reason: Bowel Protocol Saccharomyces Boulardii (Saccharomyces Boulardii 250 Mg Capsule) 250 mg PO BIDWM [facility] Sodium Chloride (Sodium Chloride Flush 0.9% 10 Ml Syringe) 10 ml IVP PRN PRN PRN Reason: NEEDED PER PROVIDER ORDERS Last Admin: 05/25/21 13:51 Dose: 10 ml Sodium Chloride (Sodium Chloride Flush 0.9% 10 Ml Syringe) 10 ml IVP 0100,0900,1700 [facility] Last Admin: 05/26/21 08:25 Dose: 10 ml No Known Home Medications 05/24/21
[2021-05-26] MEDS: SACCHAROMYCES BOULARDII 250 MG CAPSULE PO SCH ×2 (11:11→17:54)
[2021-05-26] MEDS: SODIUM CHLORIDE FLUSH 0.9% 10 ML SYRINGE IVP PRN ×2 (11:12→22:04)
[2021-05-26] MEDS: ACETAMINOPHEN 325 MG TABLET PO PRN (20:55)
[2021-05-27] MEDS: SODIUM CHLORIDE FLUSH 0.9% 10 ML SYRINGE IVP SCH ×3 (00:29→16:57)
[2021-05-27 05:38] LABS: BASOPHILS # (AUTO) 0.1 10^3/uL (0.0-0.1); BASOPHILS % (AUTO) 0.9 %; EOSINOPHILS # (AUTO) 0.2 10^3/uL (0.0-0.7); EOSINOPHILS % (AUTO) 2.4 %; HGB - HEMOGLOBIN 10.4 g/dL (12.0-16.0); LYMPHOCYTES % (AUTO) 12.8 %; MEAN CORPUSCULAR HEMOGLOBIN 30.2 pg (27.0-31.0); MEAN CORPUSCULAR HGB CONC 32.5 g/dL (32.0-36.0); MONOCYTES # (AUTO) 0.9 10^3/uL (0.0-1.0); MONOCYTES % (AUTO) 11.9 %; NEUTROPHILS # (AUTO) 5.6 10^3/uL (1.5-6.6); NEUTROPHILS % (AUTO) 71.6 %; PLT - PLATELET COUNT 237 10^3/uL (130-450); RED BLOOD COUNT 3.44 10^6/uL (4.20-5.40); RED CELL DISTRIBUTION WIDTH 12.9 % (12.0-15.0); WHITE BLOOD COUNT 7.8 x10^3/uL (4.8-10.8)
[2021-05-27 05:40] LABS: KETONES,URINE (UA) NEGATIVE (NEGATIVE); LEUKOCYTE ESTERASE, URINE NEGATIVE (NEGATIVE); NITRITE,URINE NEGATIVE (NEGATIVE); OCCULT BLOOD,URINE SMALL (NEGATIVE); PH,URINE 5.5 PH (5.0-7.5); PROTEIN,URINE NEGATIVE (NEGATIVE); UROBILINOGEN,URINE 0.2 (NORMAL) E.U./dL (NORMAL)
[2021-05-27 05:41] LABS: BILIRUBIN,URINE NEGATIVE (NEGATIVE); GLUCOSE, URINE (UA) NEGATIVE (NEGATIVE)
[2021-05-27 05:42] LABS: CLARITY,URINE CLEAR (CLEAR)
[2021-05-27 05:47] LABS: BACTERIA,URINE Rare /HPF (None Seen); SQUAMOUS EPITHELIAL CELL,UR NONE SEEN (<= Few); WBC,URINE 0-3 /HPF (0-5)
[2021-05-27 05:48] LABS: CREATININE 1.9 mg/dL (0.4-1.0); POTASSIUM 3.9 mmol/L (3.5-5.0)
[2021-05-27] MEDS: PANTOPRAZOLE 40 MG TABLET PO SCH (06:27)
[2021-05-27] MEDS: LEVALBUTEROL 1.25 MG/3 ML NEB INH PRN ×3 (07:12→19:00)
[2021-05-27] MEDS: IPRATROPIUM 0.2 MG/ML NEB INH SCH ×4 (07:12→19:00)
[2021-05-27] MEDS: BUDESONIDE 0.5 MG/2 ML NEB INH SCH ×2 (07:12→19:00)
[2021-05-27] MEDS: SACCHAROMYCES BOULARDII 250 MG CAPSULE PO SCH ×2 (07:48→16:57)
[2021-05-27] MEDS ORDERED: FUROSEMIDE 20 MG TABLET PO SCH (09:00)
[2021-05-27] MEDS: ACETAMINOPHEN 325 MG TABLET PO PRN (09:05)
[2021-05-27] MEDS: CALCIUM CARBONATE CHEW 500 MG TABLET PO SCH (09:05)
[2021-05-27] MEDS: CHOLECALCIFEROL 25 MCG TABLET PO SCH (09:06)
[2021-05-27] MEDS: ENOXAPARIN 40 MG/0.4 ML SYRINGE SUBQ SCH (09:06)
[2021-05-27] MEDS: SENNA 8.6 MG TABLET PO SCH (09:06)
[2021-05-27] MEDS: TAMSULOSIN 0.4 MG CAPSULE PO SCH (09:06)
[2021-05-27] MEDS: cefTRIAXone 1 GM in SODIUM CHLORIDE 0.9% MINIBAG 100 ML IV SCH (09:07)
[2021-05-27] MEDS: DOCUSATE SODIUM 250 MG CAPSULE PO SCH (09:07)
--- NOTE | 2021-05-27 12:12 | PROVIDER PROGRESS NOTE ---
Assessment/Plan - Problem List (1) Hip fracture Qualifiers: Encounter type: initial encounter Fracture type: closed Laterality: left Qualified Code(s): S72.002A - Fracture of unspecified part of neck of left femur, initial encounter for closed fracture Assessment/Plan: - we will keep dilaudid, oxycodone, Tylenol for patient's pain control as needed, Ativen for pt's anxiety control. continue PT/OT, continue consult with social work for disposition planning. continue Lovenox for DVT prophylaxis 05/26 we add Toradol, dilaudid, oxycodone, Tylenol for patient's pain control as needed. Also we add MiraLAX for bowel movement as needed, Nurse may initiate protocol for bowel movement. We will continue PT and OT evaluation and treatment, continue consult with social work for disposition planning. 05/25 s/p of left hip repair, we continue PT/OT, pain control, DVT prophylaxis with aspirin and Lovenox per surgeon's recommendation. Consult with social work for disposition planning see pt twice, she is at good sleeping. I talked with pt's brother and sister in law at the bedside. both state pt has no cardiac history, no home medications, she is doing well at home. we do not have ECHO service now at hospital. My colleague had pre-operation assessment for pt, "Her ortega perioperative risk for myocardial infarction or cardiac arrest is approximately 0.3%". Orthopedics surgeon plan to have hip repair for pt at this afternoon, medical team will followup medical management for pt will continue pain control, PT/OT for pt, DVT prophylaxis is from surgeon's recommendation, now Patient is on Lovenox. Consult with social work for disposition planning (2) Respiratory failure with hypoxia -8 improved. pt had 96% on 4 liter of O2. We will continue to treat pt's u nderlying COPD, Atypical pneumonia, and pulmonary edema, Supplemental oxygen as needed. unfortunately we do not have ECHO study service for pt at this point, pt may followup with ECHO study as out-pt. 47, patient does not present acute respiratory distress and she feel comfortable, patient had 92 to 96% oxygen saturation on 6 L oxymizer. We will treat underlying COPD, Atypical pneumonia, and pulmonary edema 05/25 Patient needed 6 L oxymizer to support patient's 90 to 92% oxygen saturation after surgery, And tachycardia. Previous chest x-ray show Atypical pneumonia, new chest x-ray show pulmonary edema with CHF pattern. Patient smoked over 60 years, but right now she stopped smoking. We will treat underlying fluid overloaded with pulmonary edema, Atopica pneumonia, and CHF, Supplemental oxygen as needed. We do not have echo study service now. (3)Atypical pneumonia 05/25 Patient required 6 L oxygen to support, previous chest x-ray show Atypical pneumonia, patient had elevated WBC as well. We will treat her with azithromycin and Rocephin for Atopica pneumonia, Supplemental oxygen as needed (4)COPD 05/26 we add Pulmicort, Continue xopenex, atrovent, And supplemental oxygen as needed / Patient Smoke over 60 years, Bilaterally significantly diminished lung sounds, We will treat albuterol Xopenex, Atrovent scheduled, And supplemental oxygen as needed (5) Pulmonary edema 48, Because the patient's creatinine is increased, and pt's respiratory status improved. we will hold Lasix, we do not have ECHO study service for pt at this point, pt may followup with ECHO study as out-pt. 47, Because the patient's creatitine is increased, We will reduce Lasix to 20 mg PO daily 05/25 Chest x-ray show pulmonary edema with CHF pattern. We do not have echo study service now. We will start with intravenous Lasix, Continue blood and plasma laboratory assistant and vital signs monitor. (6)ALINA 48, pt's creatinine is 1.9 on today. we will hold Lasix, hold NSAIDs of aspirin, Toradol, order US to check if any urinary obstruction, mass. continue lab monitor (7)urinary retention pt had over 1000cc urinary retention, ordered straight catheter for pt, and order bladder scan, and order Flomax and followup with urologist out-pt if pt continue to have issue. - Current Meds Current Meds: Current Medications Generic Name Dose Route Start Last Admin Trade Name Freq PRN Reason Stop Dose Admin Acetaminophen 650 mg 05/23/21 16:24 05/27/21 09:05 Acetaminophen 325 Mg Tablet PO 650 mg Q4HR PRN Administration Pain 1 to 4, or Fever Budesonide 0.5 mg 05/26/21 07:44 05/27/21 07:12 Budesonide 0.5 Mg/2 Ml Neb INH 0.5 mg RTBID MOE Administration Calcium Carbonate/Glycine 500 mg 05/24/21 21:00 05/27/21 09:05 Calcium Carbonate Chew 500 Mg Tablet PO 500 mg BID MOE Administration Cholecalciferol 50 mcg 05/25/21 09:00 05/27/21 09:06 Cholecalciferol 25 Mcg Tablet PO 50 mcg DAILY MOE Administration Docusate Sodium 250 - 500 mg 05/27/21 09:00 05/27/21 09:07 Docusate Sodium 250 Mg Capsule PO 250 mg DAILY MOE Administration Enoxaparin Sodium 40 mg 05/25/21 09:00 05/27/21 09:06 Enoxaparin 40 Mg/0.4 Ml Syringe SUBQ 40 mg DAILY MOE Administration Hydromorphone HCl 0.5 mg 05/23/21 16:24 05/25/21 15:46 Hydromorphone 0.5 Mg/0.5 Ml Syringe IVP 0.5 mg Q2H PRN Administration Pain 8 to 10 Ceftriaxone Sodium 1 gm/ 100 mls @ 200 mls/hr 05/24/21 18:23 05/27/21 09:37 Sodium Chloride IV Infused DAILY [facility] Infusion Ipratropium Vergas 0.5 mg 05/24/21 19:00 05/27/21 11:13 Ipratropium 0.2 Mg/Ml Neb INH 0.5 mg RTQ4H MOE Administration Levalbuterol HCl 1.25 mg 05/24/21 18:42 05/27/21 11:13 Levalbuterol 1.25 Mg/3 Ml Neb INH 1.25 mg Q4H PRN Administration Shortness of Air/Wheezing Lorazepam 0.25 mg 05/25/21 15:55 05/26/21 10:48 Lorazepam 0.5 Mg Tablet PO 0.25 mg Q12H PRN Administration Anxiety Oxycodone HCl 5 mg 05/23/21 16:24 05/26/21 11:11 Oxycodone 5 Mg Tablet PO 5 mg Q4HR PRN Administration Pain 5 to 7 Pantoprazole Sodium 40 mg 05/26/21 08:00 05/27/21 06:27 Pantoprazole 40 Mg Tablet PO 40 mg QDAC MOE Administration Saccharomyces Boulardii 250 mg 05/26/21 10:53 05/27/21 07:48 Saccharomyces Boulardii 250 Mg Capsule PO 250 mg BIDWM MOE Administration Senna 8.6 - 17.2 mg 05/27/21 09:00 05/27/21 09:06 Senna 8.6 Mg Tablet PO 8.6 mg DAILY MOE Administration Sodium Chloride 10 ml 05/23/21 16:24 05/26/21 22:04 Sodium Chloride Flush 0.9% 10 Ml Syringe IVP 10 ml PRN PRN Administration NEEDED PER PROVIDER ORDERS Sodium Chloride 10 ml 05/23/21 17:00 05/27/21 09:06 Sodium Chloride Flush 0.9% 10 Ml Syringe IVP 10 ml 0100,0900,1700 MOE Administration Tamsulosin HCl 0.4 mg 05/27/21 09:00 05/27/21 09:06 Tamsulosin 0.4 Mg Capsule PO 0.4 mg DAILY MOE Administration - Lab Result Fish Bone Diagrams: 05/27/21 04:33 05/27/21 04:33 - Additional Planning My Orders: My Active Orders 05/27/21 07:43 Retroperitoneal [US] Routine 05/27/21 09:00 Tamsulosin [Flomax] 0.4 mg PO DAILY 05/28/21 05:00 BMP - BASIC METABOLIC PANEL [CHEM] DAILYLAB CBC - COMP BLD CT W/AUTO DIFF [HEME] DAILYLAB 05/29/21 05:00 BMP - BASIC METABOLIC PANEL [CHEM] DAILYLAB CBC - COMP BLD CT W/AUTO DIFF [HEME] DAILYLAB 05/30/21 05:00 BMP - BASIC METABOLIC PANEL [CHEM] DAILYLAB CBC - COMP BLD CT W/AUTO DIFF [HEME] DAILYLAB 05/31/21 05:00 BMP - BASIC METABOLIC PANEL [CHEM] DAILYLAB CBC - COMP BLD CT W/AUTO DIFF [HEME] DAILYLAB 06/01/21 05:00 BMP - BASIC METABOLIC PANEL [CHEM] DAILYLAB CBC - COMP BLD CT W/AUTO DIFF [HEME] DAILYLAB Subjective - Subjective Patient Reports: Feeling Better, Resting Comfortably Objective Vital Signs: Vital Signs - 24 hr 05/26/21 05/26/21 05/27/21 14:54 16:17 00:00 Temperature 36.2 C L 36.4 C L Heart Rate 68 Heart Rate [ 96 97 Brachial] Respiratory 14 17 17 Rate Blood Pressure 122/51 L 134/66 H [Left Brachial artery] Blood Pressure [Right Brachial artery] O2 Saturation 94 93 05/27/21 05/27/21 05/27/21 05:11 07:15 08:00 Temperature 36.2 C L 35.9 C L Heart Rate 70 Heart Rate [ 87 94 Brachial] Respiratory 16 16 20 Rate Blood Pressure [Left Brachial artery] Blood Pressure 147/66 H 146/53 H [Right Brachial artery] O2 Saturation 92 96 05/27/21 11:14 Temperature Heart Rate 77 Heart Rate [ Brachial] Respiratory 16 Rate Blood Pressure [Left Brachial artery] Blood Pressure [Right Brachial artery] O2 Saturation Oxygen O2 Source Nasal cannula I&O (Last 24 Hrs): Intake and Output Totals x24h 05/25/21 05/26/21 05/27/21 23:59 23:59 23:59 Intake Total 2820 2390 520 Output Total 1400 1100 1175 Balance 1420 1290 -655 General: Alert, Cooperative, No acute distress HEENT: Atraumatic Neck: Supple Lymphatic: no adenopathy Neuro: Alert, Non Focal, Oriented Times 3 Cardiovascular: Regular rate, Normal S1, Normal S2 Respiratory: Chest non-tender, No respiratory distress Abdomen: Normal bowel sounds, Soft Extremities: Normal pulses - Results Results: Laboratory Results WBC 7.8 x10^3/uL (4.8-10.8) 05/27/21 04:33 RBC 3.44 10^6/uL (4.20-5.40) L 05/27/21 04:33 Hgb 10.4 g/dL (12.0-16.0) L 05/27/21 04:33 Hct 32.0 % (37.0-47.0) L 05/27/21 04:33 MCV 93.0 fL (81.0-99.0) 05/27/21 04:33 MCH 30.2 pg (27.0-31.0) 05/27/21 04:33 MCHC 32.5 g/dL (32.0-36.0) 05/27/21 04:33 RDW 12.9 % (12.0-15.0) 05/27/21 04:33 Plt Count 237 10^3/uL (130-450) 05/27/21 04:33 MPV 10.0 fL (7.9-10.8) 05/27/21 04:33 Neut # (Auto) 5.6 10^3/uL (1.5-6.6) 05/27/21 04:33 Lymph # (Auto) 1.0 10^3/uL (1.5-3.5) L 05/27/21 04:33 [place] # (Auto) 0.9 10^3/uL (0.0-1.0) 05/27/21 04:33 Eos # (Auto) 0.2 10^3/uL (0.0-0.7) 05/27/21 04:33 Baso # (Auto) 0.1 10^3/uL (0.0-0.1) 05/27/21 04:33 Absolute Nucleated RBC 0.00 x10^3/uL 05/27/21 04:33 Total Counted 100 05/25/21 04:59 Band Neuts % (Manual) 3 % (0-10) 05/25/21 04:59 Abnorm Lymph % (Manual) 0 % 05/25/21 04:59 Nucleated RBC % 0.0 /100WBC 05/27/21 04:33 Neutrophils # (Manual) 11.4 10^3/uL (1.5-6.6) H 05/25/21 04:59 Lymphocytes # (Manual) 1.2 10^3/uL (1.5-3.5) L 05/25/21 04:59 Monocytes # (Manual) 0.8 10^3/uL (0.0-1.0) 05/25/21 04:59 Eosinophils # (Manual) 0.0 10^3/uL (0-0.7) 05/25/21 04:59 Basophils # (Manual) 0.0 10^3/uL (0-0.1) 05/25/21 04:59 Differential Comment MANUAL DIFFERENTIAL 05/25/21 04:59 Platelet Estimate NORMAL (130-450,000) (NORMAL) 05/25/21 04:59 RBC Morph Micro Appear NORMAL APPEARANCE (NORMAL) 05/25/21 04:59 PT 13.9 secs (9.9-12.6) H 05/24/21 05:04 INR 1.3 (0.8-1.2) H 05/24/21 05:04 Sodium 136 mmol/L (135-145) 05/27/21 04:33 Potassium 3.9 mmol/L (3.5-5.0) 05/27/21 04:33 Chloride 103 mmol/L (101-111) 05/27/21 04:33 Carbon Dioxide 23 mmol/L (21-32) 05/27/21 04:33 Anion Gap 10.0 (6-13) 05/27/21 04:33 BUN 38 mg/dL (6-20) H 05/27/21 04:33 Creatinine 1.9 mg/dL (0.4-1.0) H 05/27/21 04:33 Estimated GFR (MDRD) 25 (>89) L 05/27/21 04:33 Glucose 121 mg/dL (70-100) H 05/27/21 04:33 Calcium 9.0 mg/dL (8.5-10.3) 05/27/21 04:33 Total Bilirubin 1.3 mg/dL (0.2-1.0) H 05/23/21 14:26 AST 30 IU/L (10-42) 05/23/21 14:26 ALT 20 IU/L (10-60) 05/23/21 14:26 Alkaline Phosphatase 71 IU/L (42-121) 05/23/21 14:26 Total Creatine Kinase 394 IU/L (22-269) H 05/23/21 14:26 B-Natriuretic Peptide 274 pg/mL (5-100) H 05/26/21 04:58 Total Protein 7.7 g/dL (6.7-8.2) 05/23/21 14:26 Albumin 4.1 g/dL (3.2-5.5) 05/23/21 14:26 Globulin 3.6 g/dL (2.1-4.2) 05/23/21 14:26 Albumin/Globulin Ratio 1.1 (1.0-2.2) 05/23/21 14:26 Lipase 36 U/L (22-51) 05/23/21 14:26 Urine Color YELLOW 05/27/21 05:30 Urine Clarity CLEAR (CLEAR) 05/27/21 05:30 Urine pH 5.5 PH (5.0-7.5) 05/27/21 05:30 Ur Specific [place] 1.010 (1.002-1.030) 05/27/21 05:30 Urine Protein NEGATIVE mg/dL (NEGATIVE) 05/27/21 05:30 Urine Glucose (UA) NEGATIVE mg/dL (NEGATIVE) 05/27/21 05:30 Urine Ketones NEGATIVE mg/dL (NEGATIVE) 05/27/21 05:30 Urine Occult Blood SMALL (NEGATIVE) H 05/27/21 05:30 Urine Nitrite NEGATIVE (NEGATIVE) 05/27/21 05:30 Urine Bilirubin NEGATIVE (NEGATIVE) 05/27/21 05:30 Urine Urobilinogen 0.2 (NORMAL) E.U./dL (NORMAL) 05/27/21 05:30 Ur Leukocyte Esterase NEGATIVE (NEGATIVE) 05/27/21 05:30 Urine RBC 6-10 /HPF (0-5) H 05/27/21 05:30 Urine WBC 0-3 /HPF (0-5) 05/27/21 05:30 Ur Squamous Epith Cells NONE SEEN (<= Few) 05/27/21 05:30 Urine Bacteria Rare /HPF (None Seen) 05/27/21 05:30 Urine Culture Comments NOT INDICATED 05/27/21 05:30 Nasal Adenovirus (PCR) NOT DETECTED 05/23/21 14:10 Nasal B. parapertussis DNA (PCR) NOT DETECTED 05/23/21 14:10 Nasal Coronavir 229E PCR NOT DETECTED 05/23/21 14:10 Nasal Coronavir HKU1 PCR NOT DETECTED 05/23/21 14:10 Nasal Coronavir NL63 PCR NOT DETECTED 05/23/21 14:10 Nasal Coronavir OC43 PCR NOT DETECTED 05/23/21 14:10 Nasal Enterovir/Rhinovir PCR NOT DETECTED 05/23/21 14:10 Nasal Influenza B PCR NOT DETECTED 05/23/21 14:10 Nasal Influenza A PCR NOT DETECTED 05/23/21 14:10 Nasal Parainfluen 1 PCR NOT DETECTED 05/23/21 14:10 Nasal Parainfluen 2 PCR NOT DETECTED 05/23/21 14:10 Nasal Parainfluen 3 PCR NOT DETECTED 05/23/21 14:10 Nasal Parainfluen 4 PCR NOT DETECTED 05/23/21 14:10 Nasal RSV (PCR) NOT DETECTED 05/23/21 14:10 Nasal B.pertussis DNA PCR NOT DETECTED 05/23/21 14:10 Nasal C.pneumoniae (PCR) NOT DETECTED 05/23/21 14:10 Jhony Human Metapneumo PCR NOT DETECTED 05/23/21 14:10 Nasal M.pneumoniae (PCR) NOT DETECTED 05/23/21 14:10 Nasal SARS-CoV-2 (PCR) NOT DETECTED 05/23/21 14:10 ABX Reporting Has patient been on IV antibiotics over the past 48 hours?: Yes Current Medications - Current Medications Current Medications: Active Medications Acetaminophen (Acetaminophen 325 Mg Tablet) 650 mg PO Q4HR PRN PRN Reason: Pain 1 to 4, or Fever Last Admin: 05/27/21 09:05 Dose: 650 mg Budesonide (Budesonide 0.5 Mg/2 Ml Neb) 0.5 mg INH RTBID [facility] Last Admin: 05/27/21 07:12 Dose: 0.5 mg Calcium Carbonate/Glycine (Calcium Carbonate Chew 500 Mg Tablet) 500 mg PO BID [facility] Last Admin: 05/27/21 09:05 Dose: 500 mg Cholecalciferol (Cholecalciferol 25 Mcg Tablet) 50 mcg PO DAILY [facility] Last Admin: 05/27/21 09:06 Dose: 50 mcg Docusate Sodium (Docusate Sodium 250 Mg Capsule) 250 - 500 mg PO DAILY [facility] Last Admin: 05/27/21 09:07 Dose: 250 mg Enoxaparin Sodium (Enoxaparin 40 Mg/0.4 Ml Syringe) 40 mg SUBQ DAILY [facility] Last Admin: 05/27/21 09:06 Dose: 40 mg Hydromorphone HCl (Hydromorphone 0.5 Mg/0.5 Ml Syringe) 0.5 mg IVP Q2H PRN PRN Reason: Pain 8 to 10 Last Admin: 05/25/21 15:46 Dose: 0.5 mg Ceftriaxone Sodium 1 gm/ (Sodium Chloride) 100 mls @ 200 mls/hr IV DAILY [facility] Last Infusion: 05/27/21 09:37 Dose: Infused Ipratropium Vergas (Ipratropium 0.2 Mg/Ml Neb) 0.5 mg INH RTQ4H [facility] Last Admin: 05/27/21 11:13 Dose: 0.5 mg Levalbuterol HCl (Levalbuterol 1.25 Mg/3 Ml Neb) 1.25 mg INH Q4H PRN PRN Reason: Shortness of Air/Wheezing Last Admin: 05/27/21 11:13 Dose: 1.25 mg Lorazepam (Lorazepam 0.5 Mg Tablet) 0.25 mg PO Q12H PRN PRN Reason: Anxiety Last Admin: 05/26/21 10:48 Dose: 0.25 mg Ondansetron HCl (Ondansetron 4 Mg/2 Ml Vial) 4 mg IVP Q6HR PRN PRN Reason: Nausea / Vomiting Oxycodone HCl (Oxycodone 5 Mg Tablet) 5 mg PO Q4HR PRN PRN Reason: Pain 5 to 7 Last Admin: 05/26/21 11:11 Dose: 5 mg Pantoprazole Sodium (Pantoprazole 40 Mg Tablet) 40 mg PO QDAC [facility] Last Admin: 05/27/21 06:27 Dose: 40 mg Polyethylene Glycol (Polyethylene Glycol 3350 17 Gm Packet) 17 gm PO DAILY PRN PRN Reason: Bowel Protocol Saccharomyces Boulardii (Saccharomyces Boulardii 250 Mg Capsule) 250 mg PO BIDWM [facility] Last Admin: 05/27/21 07:48 Dose: 250 mg Senna (Senna 8.6 Mg Tablet) 8.6 - 17.2 mg PO DAILY [facility] Last Admin: 05/27/21 09:06 Dose: 8.6 mg Sodium Chloride (Sodium Chloride Flush 0.9% 10 Ml Syringe) 10 ml IVP PRN PRN PRN Reason: NEEDED PER PROVIDER ORDERS Last Admin: 05/26/21 22:04 Dose: 10 ml Sodium Chloride (Sodium Chloride Flush 0.9% 10 Ml Syringe) 10 ml IVP 0100,0900,1700 [facility] Last Admin: 05/27/21 09:06 Dose: 10 ml Tamsulosin HCl (Tamsulosin 0.4 Mg Capsule) 0.4 mg PO DAILY [facility] Last Admin: 05/27/21 09:06 Dose: 0.4 mg No Known Home Medications 05/24/21
[2021-05-27] MEDS: oxyCODONE 5 MG TABLET PO PRN (13:27)
--- NOTE | 2021-05-27 16:42 | Ultrasound Report ---
PROCEDURE: Retroperitoneal INDICATIONS: urinary retention, creatinine increased, obstruct? TECHNIQUE: Real-time scanning was performed of the retroperitoneal organs, with image documentation. COMPARISON: None. FINDINGS: Kidneys: Kidneys are normal in size. Right kidney measures 10.6 cm long; left kidney measures 13.3 cm long. Right renal cortical thickness is 1.1 cm; left renal cortical thickness is 1.3 cm. No wes d masses. Multiple nonobstructing left renal stone is noted and measures 7 mm in diameter. Moderate r ight-sided hydronephrosis. Bilateral renal cysts. Pancreas: Visualized portions of the pancreas are sonographically normal. Aorta: Visualized aorta is normal in caliber at 3 cm or less. Iliac arteries: Proximal common iliac arteries are normal in caliber at 2.5 cm or less. IVC: Intrahepatic inferior vena cava is patent. Bladder: Pre-void bladder volume is 539 mL. Post-void residual is 539 mL. Pre-void images demonstr ate no intraluminal masses or stones. On pre-void images, both the right and left ureteral jets are noted with color Doppler interrogation. (Of note, ureteral jets may not be detectable in up to 25% o f cases due to insufficient differences in specific gravity between ureteral and bladder urine). Miscellaneous: No free abdominal fluid. IMPRESSION: 1. Moderate hydronephrosis. 2. No left-sided hydronephrosis. 3. 7 mm nonobstructing left renal stone. 4. Bilateral renal cysts. 5. Large and a bladder volume compatible with urinary retention. Bladder outlet obstruction is not ex cluded by this study. Reportedly Alanis catheter was placed prior to image acquisition, however the Fo stephen catheter is not identified in the urinary bladder. Reviewed by: Elise Carter MD, PhD on 05/27/2021 4:41 PM PDT Approved by: Elise Carter MD, PhD on 05/27/2021 4:41 PM PDT Station ID: [id number]
[2021-05-28] MEDS: CALCIUM CARBONATE CHEW 500 MG TABLET PO SCH ×3 (00:23→19:54)
[2021-05-28] MEDS: SODIUM CHLORIDE FLUSH 0.9% 10 ML SYRINGE IVP SCH ×3 (00:25→16:53)
[2021-05-28] MEDS: oxyCODONE 5 MG TABLET PO PRN (03:31)
[2021-05-28 05:09] LABS: BASOPHILS % (AUTO) 0.6 %; EOSINOPHILS # (AUTO) 0.3 10^3/uL (0.0-0.7); EOSINOPHILS % (AUTO) 4.2 %; HCT - HEMATOCRIT 28.5 % (37.0-47.0); HGB - HEMOGLOBIN 9.4 g/dL (12.0-16.0); LYMPHOCYTES # (AUTO) 0.9 10^3/uL (1.5-3.5); LYMPHOCYTES % (AUTO) 14.3 %; MEAN CORPUSCULAR HEMOGLOBIN 30.6 pg (27.0-31.0); MEAN CORPUSCULAR VOLUME 92.8 fL (81.0-99.0); MEAN PLATELET VOLUME 9.7 fL (7.9-10.8); MONOCYTES # (AUTO) 0.8 10^3/uL (0.0-1.0); MONOCYTES % (AUTO) 12.3 %; NEUTROPHILS # (AUTO) 4.2 10^3/uL (1.5-6.6); PLT - PLATELET COUNT 240 10^3/uL (130-450); RED BLOOD COUNT 3.07 10^6/uL (4.20-5.40); RED CELL DISTRIBUTION WIDTH 12.7 % (12.0-15.0); WHITE BLOOD COUNT 6.2 x10^3/uL (4.8-10.8)
[2021-05-28 05:21] LABS: CALCIUM 8.9 mg/dL (8.5-10.3); CREATININE 1.1 mg/dL (0.4-1.0); POTASSIUM 3.7 mmol/L (3.5-5.0)
[2021-05-28] MEDS: PANTOPRAZOLE 40 MG TABLET PO SCH (06:30)
[2021-05-28] MEDS: BUDESONIDE 0.5 MG/2 ML NEB INH SCH ×4 (07:26→16:55)
[2021-05-28] MEDS: IPRATROPIUM 0.2 MG/ML NEB INH SCH ×4 (07:26→16:53)
[2021-05-28] MEDS: LEVALBUTEROL 1.25 MG/3 ML NEB INH PRN (07:26)
--- NOTE | 2021-05-28 08:10 | PROVIDER PROGRESS NOTE ---
Assessment/Plan - Problem List (1) Hip fracture Qualifiers: Encounter type: initial encounter Fracture type: closed Laterality: left Qualified Code(s): S72.002A - Fracture of unspecified part of neck of left femur, initial encounter for closed fracture Assessment/Plan: Status post left hip hemiarthroplasty postop day #4. This was done by Dr. Chidi Gray Pain management with Tylenol, oxycodone and/or Dilaudid as needed. Toradol was discontinued yesterday due to increasing creatinine. Patient's continue to work with PT/OT. Social work is working to facilitate placement (2) Respiratory failure with hypoxia Assessment/Plan: Acute on chronic. Improved Patient was initially on 6 L of oxygen via nasal cannula. She is currently on 3 L via nasal cannula. Chest x-ray done on 05/24/2021 had shown worsening CHF. Patient was on Lasix 20 mg IV twice daily. This was decreased when patient's renal function worsened. Chronically the patient has COPD. She smoked for over 60 years. She is currently on albuterol, Xopenex, Atrovent. We will plan to do an oxygen desaturation study on the day before discharge to assess discharge oxygen needs. (3) COPD (chronic obstructive pulmonary disease) Assessment/Plan: She smoked for over 60 years. She is currently on albuterol, Xopenex, Atrovent. Currently on 3 L of oxygen via nasal cannula. We will plan to do an oxygen desaturation study on the day before discharge to assess discharge oxygen needs. (4) ALINA (acute kidney injury) Assessment/Plan: Possibly multifactorial. Secondary to urinary retention, CHF exacerbation and possible NSAID use. Toradol was discontinued. Flomax 0.4 mg p.o. daily ordered. Patient received active diuresis with Lasix 20 mg IV twice daily. This has since been discontinued. Creatinine improved from 1.9 yesterday down to 1.1 today. We will continue to monitor. (5) Urinary retention Assessment/Plan: Flomax 0.4 mg p.o. daily. - Current Meds Current Meds: Current Medications Generic Name Dose Route Start Last Admin Trade Name Freq PRN Reason Stop Dose Admin Acetaminophen 650 mg 05/23/21 16:24 05/27/21 09:05 Acetaminophen 325 Mg Tablet PO 650 mg Q4HR PRN Administration Pain 1 to 4, or Fever Budesonide 0.5 mg 05/26/21 07:44 05/28/21 07:26 Budesonide 0.5 Mg/2 Ml Neb INH 0.5 mg RTBID MOE Administration Calcium Carbonate/Glycine 500 mg 05/24/21 21:00 05/28/21 00:23 Calcium Carbonate Chew 500 Mg Tablet PO Not Given BID MOE Cholecalciferol 50 mcg 05/25/21 09:00 05/27/21 09:06 Cholecalciferol 25 Mcg Tablet PO 50 mcg DAILY MOE Administration Docusate Sodium 250 - 500 mg 05/27/21 09:00 05/27/21 09:07 Docusate Sodium 250 Mg Capsule PO 250 mg DAILY MOE Administration Enoxaparin Sodium 40 mg 05/25/21 09:00 05/27/21 09:06 Enoxaparin 40 Mg/0.4 Ml Syringe SUBQ 40 mg DAILY MOE Administration Ceftriaxone Sodium 1 gm/ 100 mls @ 200 mls/hr 05/24/21 18:23 05/27/21 09:37 Sodium Chloride IV Infused DAILY [facility] Infusion Ipratropium [place] 0.5 mg 05/24/21 19:00 05/28/21 07:26 Ipratropium 0.2 Mg/Ml Neb INH 0.5 mg RTQ4H MOE Administration Levalbuterol HCl 1.25 mg 05/24/21 18:42 05/28/21 07:26 Levalbuterol 1.25 Mg/3 Ml Neb INH 1.25 mg Q4H PRN Administration Shortness of Air/Wheezing Lorazepam 0.25 mg 05/25/21 15:55 05/26/21 10:48 Lorazepam 0.5 Mg Tablet PO 0.25 mg Q12H PRN Administration Anxiety Oxycodone HCl 5 mg 05/27/21 18:42 05/28/21 03:31 Oxycodone 5 Mg Tablet PO 5 mg Q6HR PRN Administration Pain 5 to 7 Pantoprazole Sodium 40 mg 05/26/21 08:00 05/28/21 06:30 Pantoprazole 40 Mg Tablet PO 40 mg QDAC MOE Administration Saccharomyces Boulardii 250 mg 05/26/21 10:53 05/27/21 16:57 Saccharomyces Boulardii 250 Mg Capsule PO 250 mg BIDWM [facility] Administration Senna 8.6 - 17.2 mg 05/27/21 09:00 05/27/21 09:06 Senna 8.6 Mg Tablet PO 8.6 mg DAILY MOE Administration Sodium Chloride 10 ml 05/23/21 16:24 05/26/21 22:04 Sodium Chloride Flush 0.9% 10 Ml Syringe IVP 10 ml PRN PRN Administration NEEDED PER PROVIDER ORDERS Sodium Chloride 10 ml 05/23/21 17:00 05/28/21 00:25 Sodium Chloride Flush 0.9% 10 Ml Syringe IVP 10 ml 0100,0900,1700 MOE Administration Tamsulosin HCl 0.4 mg 05/27/21 09:00 05/27/21 09:06 Tamsulosin 0.4 Mg Capsule PO 0.4 mg DAILY MOE Administration - Lab Result Fish Bone Diagrams: 05/28/21 04:37 05/28/21 04:37 Subjective - Subjective Patient Reports: Other (Sitting comfortably in bed. Denied chest pain. Reported improvement in her breathing. Her hip pain persist. So far working with PT she has been able to transfer to the bedside chair. She also complained of constipation. No bowel movement in 4 days.) Objective Vital Signs: Vital Signs - 24 hr 05/27/21 05/27/21 05/27/21 11:14 15:04 19:00 Temperature 36.7 C Heart Rate 77 90 Heart Rate [ 91 Brachial] Respiratory 16 16 16 Rate Blood Pressure 127/52 L [Left Brachial artery] O2 Saturation 95 05/28/21 05/28/21 05/28/21 00:00 07:28 07:54 Temperature 36.6 C Heart Rate 84 Heart Rate [ 94 95 Brachial] Respiratory 18 20 18 Rate Blood Pressure 140/73 H 170/60 H [Left Brachial artery] O2 Saturation 92 92 Oxygen O2 Source Nasal cannula I&O (Last 24 Hrs): Intake and Output Totals x24h 05/26/21 05/27/21 05/28/21 23:59 23:59 23:59 Intake Total 2390 1260 Output Total 1100 3175 1050 Balance 1290 -1915 -1050 General: Alert, Oriented x3, Moderate distress HEENT: PERRLA, EOMI Neck: Supple, No JVD Neuro: Alert, Oriented Times 3 Cardiovascular: Regular rate Respiratory: Chest non-tender, No respiratory distress, Breath sounds nml Abdomen: Normal bowel sounds, Soft, No tenderness, No masses Extremities: No clubbing, No cyanosis, No edema Skin: No rashes, No breakdown, No significant lesion - Results Results: Laboratory Results WBC 6.2 x10^3/uL (4.8-10.8) 05/28/21 04:37 RBC 3.07 10^6/uL (4.20-5.40) L 05/28/21 04:37 Hgb 9.4 g/dL (12.0-16.0) L 05/28/21 04:37 Hct 28.5 % (37.0-47.0) L 05/28/21 04:37 MCV 92.8 fL (81.0-99.0) 05/28/21 04:37 MCH 30.6 pg (27.0-31.0) 05/28/21 04:37 MCHC 33.0 g/dL (32.0-36.0) 05/28/21 04:37 RDW 12.7 % (12.0-15.0) 05/28/21 04:37 Plt Count 240 10^3/uL (130-450) 05/28/21 04:37 MPV 9.7 fL (7.9-10.8) 05/28/21 04:37 Neut # (Auto) 4.2 10^3/uL (1.5-6.6) 05/28/21 04:37 Lymph # (Auto) 0.9 10^3/uL (1.5-3.5) L 05/28/21 04:37 [place] # (Auto) 0.8 10^3/uL (0.0-1.0) 05/28/21 04:37 Eos # (Auto) 0.3 10^3/uL (0.0-0.7) 05/28/21 04:37 Baso # (Auto) 0.0 10^3/uL (0.0-0.1) 05/28/21 04:37 Absolute Nucleated RBC 0.00 x10^3/uL 05/28/21 04:37 Total Counted 100 05/25/21 04:59 Band Neuts % (Manual) 3 % (0-10) 05/25/21 04:59 Abnorm Lymph % (Manual) 0 % 05/25/21 04:59 Nucleated RBC % 0.0 /100WBC 05/28/21 04:37 Neutrophils # (Manual) 11.4 10^3/uL (1.5-6.6) H 05/25/21 04:59 Lymphocytes # (Manual) 1.2 10^3/uL (1.5-3.5) L 05/25/21 04:59 Monocytes # (Manual) 0.8 10^3/uL (0.0-1.0) 05/25/21 04:59 Eosinophils # (Manual) 0.0 10^3/uL (0-0.7) 05/25/21 04:59 Basophils # (Manual) 0.0 10^3/uL (0-0.1) 05/25/21 04:59 Differential Comment MANUAL DIFFERENTIAL 05/25/21 04:59 Platelet Estimate NORMAL (130-450,000) (NORMAL) 05/25/21 04:59 RBC Morph Micro Appear NORMAL APPEARANCE (NORMAL) 05/25/21 04:59 PT 13.9 secs (9.9-12.6) H 05/24/21 05:04 INR 1.3 (0.8-1.2) H 05/24/21 05:04 Sodium 138 mmol/L (135-145) 05/28/21 04:37 Potassium 3.7 mmol/L (3.5-5.0) 05/28/21 04:37 Chloride 102 mmol/L (101-111) 05/28/21 04:37 Carbon Dioxide 26 mmol/L (21-32) 05/28/21 04:37 Anion Gap 10.0 (6-13) 05/28/21 04:37 BUN 29 mg/dL (6-20) H 05/28/21 04:37 Creatinine 1.1 mg/dL (0.4-1.0) H 05/28/21 04:37 Estimated GFR (MDRD) 47 (>89) L 05/28/21 04:37 Glucose 123 mg/dL (70-100) H 05/28/21 04:37 Calcium 8.9 mg/dL (8.5-10.3) 05/28/21 04:37 Total Bilirubin 1.3 mg/dL (0.2-1.0) H 05/23/21 14:26 AST 30 IU/L (10-42) 05/23/21 14:26 ALT 20 IU/L (10-60) 05/23/21 14:26 Alkaline Phosphatase 71 IU/L (42-121) 05/23/21 14:26 Total Creatine Kinase 394 IU/L (22-269) H 05/23/21 14:26 B-Natriuretic Peptide 274 pg/mL (5-100) H 05/26/21 04:58 Total Protein 7.7 g/dL (6.7-8.2) 05/23/21 14:26 Albumin 4.1 g/dL (3.2-5.5) 05/23/21 14:26 Globulin 3.6 g/dL (2.1-4.2) 05/23/21 14:26 Albumin/Globulin Ratio 1.1 (1.0-2.2) 05/23/21 14:26 Lipase 36 U/L (22-51) 05/23/21 14:26 Urine Color YELLOW 05/27/21 05:30 Urine Clarity CLEAR (CLEAR) 05/27/21 05:30 Urine pH 5.5 PH (5.0-7.5) 05/27/21 05:30 Ur Specific [place] 1.010 (1.002-1.030) 05/27/21 05:30 Urine Protein NEGATIVE mg/dL (NEGATIVE) 05/27/21 05:30 Urine Glucose (UA) NEGATIVE mg/dL (NEGATIVE) 05/27/21 05:30 Urine Ketones NEGATIVE mg/dL (NEGATIVE) 05/27/21 05:30 Urine Occult Blood SMALL (NEGATIVE) H 05/27/21 05:30 Urine Nitrite NEGATIVE (NEGATIVE) 05/27/21 05:30 Urine Bilirubin NEGATIVE (NEGATIVE) 05/27/21 05:30 Urine Urobilinogen 0.2 (NORMAL) E.U./dL (NORMAL) 05/27/21 05:30 Ur Leukocyte Esterase NEGATIVE (NEGATIVE) 05/27/21 05:30 Urine RBC 6-10 /HPF (0-5) H 05/27/21 05:30 Urine WBC 0-3 /HPF (0-5) 05/27/21 05:30 Ur Squamous Epith Cells NONE SEEN (<= Few) 05/27/21 05:30 Urine Bacteria Rare /HPF (None Seen) 05/27/21 05:30 Urine Culture Comments NOT INDICATED 05/27/21 05:30 Nasal Adenovirus (PCR) NOT DETECTED 05/23/21 14:10 Nasal B. parapertussis DNA (PCR) NOT DETECTED 05/23/21 14:10 Nasal Coronavir 229E PCR NOT DETECTED 05/23/21 14:10 Nasal Coronavir HKU1 PCR NOT DETECTED 05/23/21 14:10 Nasal Coronavir NL63 PCR NOT DETECTED 05/23/21 14:10 Nasal Coronavir OC43 PCR NOT DETECTED 05/23/21 14:10 Nasal Enterovir/Rhinovir PCR NOT DETECTED 05/23/21 14:10 Nasal Influenza B PCR NOT DETECTED 05/23/21 14:10 Nasal Influenza A PCR NOT DETECTED 05/23/21 14:10 Nasal Parainfluen 1 PCR NOT DETECTED 05/23/21 14:10 Nasal Parainfluen 2 PCR NOT DETECTED 05/23/21 14:10 Nasal Parainfluen 3 PCR NOT DETECTED 05/23/21 14:10 Nasal Parainfluen 4 PCR NOT DETECTED 05/23/21 14:10 Nasal RSV (PCR) NOT DETECTED 05/23/21 14:10 Nasal B.pertussis DNA PCR NOT DETECTED 05/23/21 14:10 Nasal C.pneumoniae (PCR) NOT DETECTED 05/23/21 14:10 Jhony Human Metapneumo PCR NOT DETECTED 05/23/21 14:10 Nasal M.pneumoniae (PCR) NOT DETECTED 05/23/21 14:10 Nasal SARS-CoV-2 (PCR) NOT DETECTED 05/23/21 14:10 ABX Reporting Has patient been on IV antibiotics over the past 48 hours?: Yes
[2021-05-28] MEDS: SACCHAROMYCES BOULARDII 250 MG CAPSULE PO SCH ×2 (08:22→16:53)
[2021-05-28] MEDS: DOCUSATE SODIUM 250 MG CAPSULE PO SCH (08:22)
[2021-05-28] MEDS: CHOLECALCIFEROL 25 MCG TABLET PO SCH (08:22)
[2021-05-28] MEDS: TAMSULOSIN 0.4 MG CAPSULE PO SCH (08:22)
[2021-05-28] MEDS: ENOXAPARIN 40 MG/0.4 ML SYRINGE SUBQ SCH (08:22)
[2021-05-28] MEDS: cefTRIAXone 1 GM in SODIUM CHLORIDE 0.9% MINIBAG 100 ML IV SCH (08:22)
[2021-05-28] MEDS: SENNA 8.6 MG TABLET PO SCH (08:22)
[2021-05-28] MEDS: HYDROmorphone 0.5 MG/0.5 ML SYRINGE IVP PRN ×2 (13:04→19:54)
[2021-05-28] MEDS: SODIUM CHLORIDE FLUSH 0.9% 10 ML SYRINGE IVP PRN (19:54)
[2021-05-29] MEDS: SODIUM CHLORIDE FLUSH 0.9% 10 ML SYRINGE IVP SCH ×3 (00:20→17:12)
[2021-05-29 05:22] LABS: BASOPHILS # (AUTO) 0.1 10^3/uL (0.0-0.1); BASOPHILS % (AUTO) 0.8 %; EOSINOPHILS # (AUTO) 0.3 10^3/uL (0.0-0.7); EOSINOPHILS % (AUTO) 4.4 %; HCT - HEMATOCRIT 28.6 % (37.0-47.0); HGB - HEMOGLOBIN 9.6 g/dL (12.0-16.0); LYMPHOCYTES # (AUTO) 1.2 10^3/uL (1.5-3.5); LYMPHOCYTES % (AUTO) 19.4 %; MEAN CORPUSCULAR HEMOGLOBIN 30.9 pg (27.0-31.0); MEAN CORPUSCULAR HGB CONC 33.6 g/dL (32.0-36.0); MEAN PLATELET VOLUME 9.6 fL (7.9-10.8); MONOCYTES # (AUTO) 0.9 10^3/uL (0.0-1.0); MONOCYTES % (AUTO) 14.3 %; NEUTROPHILS # (AUTO) 3.8 10^3/uL (1.5-6.6); NEUTROPHILS % (AUTO) 60.3 %; PLT - PLATELET COUNT 284 10^3/uL (130-450); RED BLOOD COUNT 3.11 10^6/uL (4.20-5.40); RED CELL DISTRIBUTION WIDTH 12.7 % (12.0-15.0); WHITE BLOOD COUNT 6.3 x10^3/uL (4.8-10.8)
[2021-05-29 05:30] LABS: CALCIUM 9.2 mg/dL (8.5-10.3); CREATININE 0.9 mg/dL (0.4-1.0); POTASSIUM 3.4 mmol/L (3.5-5.0)
[2021-05-29] MEDS: PANTOPRAZOLE 40 MG TABLET PO SCH (06:28)
--- NOTE | 2021-05-29 07:30 | PROVIDER PROGRESS NOTE ---
Assessment/Plan - Problem List (1) Hip fracture Qualifiers: Encounter type: initial encounter Fracture type: closed Laterality: left Qualified Code(s): S72.002A - Fracture of unspecified part of neck of left femur, initial encounter for closed fracture Assessment/Plan: 05/29/21 PT/OT continue to work with patient. She is very apprehensive to physical therapy. Requires significant prompting to engage in activity. Recommendation from PT/OT has been for placement at a long-term facility for rehab. However the patient's conditions are only to go to a facility on [facility]. If this is not possible, she declined any other facility and would like to go home. Discharge home is not advisable and patient is likely to do poorly however she is insistent on the above conditions. 05/28/21 Status post left hip hemiarthroplasty postop day #4. This was done by Dr. Chiid Gray Pain management with Tylenol, oxycodone and/or Dilaudid as needed. Toradol was discontinued yesterday due to increasing creatinine. Patient's continue to work with PT/OT. Social work is working to facilitate placement (2) Respiratory failure with hypoxia Assessment/Plan: Acute on chronic. Improved Patient was initially on 6 L of oxygen via nasal cannula. She is currently on 3 L via nasal cannula. Chest x-ray done on 05/24/2021 had shown worsening CHF. Patient was on Lasix 20 mg IV twice daily. This was decreased when patient's renal function worsened. Chronically the patient has COPD. She smoked for over 60 years. She is currently on albuterol, Xopenex, Atrovent. We will plan to do an oxygen desaturation study on the day before discharge to assess discharge oxygen needs. (3) COPD (chronic obstructive pulmonary disease) Assessment/Plan: She smoked for over 60 years. She is currently on albuterol, Xopenex, Atrovent. Currently on 3 L of oxygen via nasal cannula. We will plan to do an oxygen desaturation study on the day before discharge to assess discharge oxygen needs. (5) Urinary retention Assessment/Plan: 05/29/21 Creatinine this morning was 0.9 with an estimated GFR 59. We will attempt to remove Alanis catheter and observe patient for the next 24 hours for any further urinary retention. 05/28/21 Possibly multifactorial. Secondary to urinary retention, CHF exacerbation and possible NSAID use. Toradol was discontinued. Flomax 0.4 mg p.o. daily ordered. Patient received active diuresis with Lasix 20 mg IV twice daily. This has since been discontinued. Creatinine improved from 1.9 yesterday down to 1.1 today. We will continue to monitor. - Current Meds Current Meds: Current Medications Generic Name Dose Route Start Last Admin Trade Name Freq PRN Reason Stop Dose Admin Acetaminophen 650 mg 05/23/21 16:24 05/27/21 09:05 Acetaminophen 325 Mg Tablet PO 650 mg Q4HR PRN Administration Pain 1 to 4, or Fever Budesonide 0.5 mg 05/26/21 07:44 05/28/21 16:53 Budesonide 0.5 Mg/2 Ml Neb INH 0.5 mg RTBID MOE Administration Calcium Carbonate/Glycine 500 mg 05/24/21 21:00 05/28/21 19:54 Calcium Carbonate Chew 500 Mg Tablet PO 500 mg BID MOE Administration Cholecalciferol 50 mcg 05/25/21 09:00 05/28/21 08:22 Cholecalciferol 25 Mcg Tablet PO 50 mcg DAILY MOE Administration Docusate Sodium 250 - 500 mg 05/27/21 09:00 05/28/21 08:22 Docusate Sodium 250 Mg Capsule PO 250 mg DAILY MOE Administration Enoxaparin Sodium 40 mg 05/25/21 09:00 05/28/21 08:22 Enoxaparin 40 Mg/0.4 Ml Syringe SUBQ 40 mg DAILY MOE Administration Hydromorphone HCl 0.5 mg 05/27/21 18:42 05/28/21 19:54 Hydromorphone 0.5 Mg/0.5 Ml Syringe IVP 0.5 mg Q6H PRN Administration Pain 8 to 10 Ipratropium [place] 0.5 mg 05/24/21 19:00 05/28/21 16:53 Ipratropium 0.2 Mg/Ml Neb INH 0.5 mg RTQ4H MOE Administration Levalbuterol HCl 1.25 mg 05/24/21 18:42 05/28/21 07:26 Levalbuterol 1.25 Mg/3 Ml Neb INH 1.25 mg Q4H PRN Administration Shortness of Air/Wheezing Lorazepam 0.25 mg 05/25/21 15:55 05/26/21 10:48 Lorazepam 0.5 Mg Tablet PO 0.25 mg Q12H PRN Administration Anxiety Ondansetron HCl 4 mg 05/23/21 16:24 05/29/21 05:25 Ondansetron 4 Mg/2 Ml Vial IVP 4 mg Q6HR PRN Administration Nausea / Vomiting Oxycodone HCl 5 mg 05/27/21 18:42 05/28/21 03:31 Oxycodone 5 Mg Tablet PO 5 mg Q6HR PRN Administration Pain 5 to 7 Pantoprazole Sodium 40 mg 05/26/21 08:00 05/29/21 06:28 Pantoprazole 40 Mg Tablet PO 40 mg QDAC MOE Administration Saccharomyces Boulardii 250 mg 05/26/21 10:53 05/28/21 16:53 Saccharomyces Boulardii 250 Mg Capsule PO 250 mg BIDWM MOE Administration Senna 8.6 - 17.2 mg 05/27/21 09:00 05/28/21 08:22 Senna 8.6 Mg Tablet PO 17.2 mg DAILY MOE Administration Sodium Chloride 10 ml 05/23/21 16:24 05/28/21 19:54 Sodium Chloride Flush 0.9% 10 Ml Syringe IVP 10 ml PRN PRN Administration NEEDED PER PROVIDER ORDERS Sodium Chloride 10 ml 05/23/21 17:00 05/29/21 00:20 Sodium Chloride Flush 0.9% 10 Ml Syringe IVP 10 ml 0100,0900,1700 MOE Administration Tamsulosin HCl 0.4 mg 05/27/21 09:00 05/28/21 08:22 Tamsulosin 0.4 Mg Capsule PO 0.4 mg DAILY MOE Administration - Lab Result Fish Bone Diagrams: 05/29/21 04:29 05/29/21 04:29 - Additional Planning My Orders: My Active Orders 05/29/21 07:29 Potassium Chloride [K-Dur] 40 meq PO ONCE ONE Subjective - Subjective Patient Reports: Other (Patient complains of hip pain at time of exam. Denied dyspnea, chest pain or abdominal pain. She has been apprehensive about physical therapy while in the hospital and requires significant prompting to engage in activity.) Objective Vital Signs: Vital Signs - 24 hr 05/28/21 05/28/21 05/28/21 07:54 10:46 16:18 Temperature 36.6 C Heart Rate 83 Heart Rate [ 95 93 Brachial] Respiratory 18 20 18 Rate Blood Pressure 170/60 H 139/62 H [Left Brachial artery] O2 Saturation 92 92 05/28/21 05/29/21 17:01 00:00 Temperature 36.8 C Heart Rate 94 Heart Rate [ 91 Brachial] Respiratory 18 17 Rate Blood Pressure 149/62 H [Left Brachial artery] O2 Saturation 91 L Oxygen O2 Source Room air I&O (Last 24 Hrs): Intake and Output Totals x24h 05/27/21 05/28/21 05/29/21 23:59 23:59 23:59 Intake Total 1260 1456 50 Output Total 3175 3970 950 Pjjlfsh -3258 -1169 -923 Comments/Notes: General: Alert, Oriented x3, Moderate distress HEENT: PERRLA, EOMI Neck: Supple, No JVD Neuro: Alert, Oriented Times 3 Cardiovascular: Regular rate Respiratory: Chest non-tender, No respiratory distress, Breath sounds nml Abdomen: Normal bowel sounds, Soft, No tenderness, No masses Extremities: No clubbing, No cyanosis, No edema Skin: No rashes, No breakdown, No significant lesion - Results Results: Laboratory Results WBC 6.3 x10^3/uL (4.8-10.8) 05/29/21 04:29 RBC 3.11 10^6/uL (4.20-5.40) L 05/29/21 04:29 Hgb 9.6 g/dL (12.0-16.0) L 05/29/21 04:29 Hct 28.6 % (37.0-47.0) L 05/29/21 04:29 MCV 92.0 fL (81.0-99.0) 05/29/21 04:29 MCH 30.9 pg (27.0-31.0) 05/29/21 04:29 MCHC 33.6 g/dL (32.0-36.0) 05/29/21 04:29 RDW 12.7 % (12.0-15.0) 05/29/21 04:29 Plt Count 284 10^3/uL (130-450) 05/29/21 04:29 MPV 9.6 fL (7.9-10.8) 05/29/21 04:29 Neut # (Auto) 3.8 10^3/uL (1.5-6.6) 05/29/21 04:29 Lymph # (Auto) 1.2 10^3/uL (1.5-3.5) L 05/29/21 04:29 [place] # (Auto) 0.9 10^3/uL (0.0-1.0) 05/29/21 04:29 Eos # (Auto) 0.3 10^3/uL (0.0-0.7) 05/29/21 04:29 Baso # (Auto) 0.1 10^3/uL (0.0-0.1) 05/29/21 04:29 Absolute Nucleated RBC 0.00 x10^3/uL 05/29/21 04:29 Total Counted 100 05/25/21 04:59 Band Neuts % (Manual) 3 % (0-10) 05/25/21 04:59 Abnorm Lymph % (Manual) 0 % 05/25/21 04:59 Nucleated RBC % 0.0 /100WBC 05/29/21 04:29 Neutrophils # (Manual) 11.4 10^3/uL (1.5-6.6) H 05/25/21 04:59 Lymphocytes # (Manual) 1.2 10^3/uL (1.5-3.5) L 05/25/21 04:59 Monocytes # (Manual) 0.8 10^3/uL (0.0-1.0) 05/25/21 04:59 Eosinophils # (Manual) 0.0 10^3/uL (0-0.7) 05/25/21 04:59 Basophils # (Manual) 0.0 10^3/uL (0-0.1) 05/25/21 04:59 Differential Comment MANUAL DIFFERENTIAL 05/25/21 04:59 Platelet Estimate NORMAL (130-450,000) (NORMAL) 05/25/21 04:59 RBC Morph Micro Appear NORMAL APPEARANCE (NORMAL) 05/25/21 04:59 PT 13.9 secs (9.9-12.6) H 05/24/21 05:04 INR 1.3 (0.8-1.2) H 05/24/21 05:04 Sodium 136 mmol/L (135-145) 05/29/21 04:29 Potassium 3.4 mmol/L (3.5-5.0) L 05/29/21 04:29 Chloride 98 mmol/L (101-111) L 05/29/21 04:29 Carbon Dioxide 27 mmol/L (21-32) 05/29/21 04:29 Anion Gap 11.0 (6-13) 05/29/21 04:29 BUN 21 mg/dL (6-20) H 05/29/21 04:29 Creatinine 0.9 mg/dL (0.4-1.0) 05/29/21 04:29 Estimated GFR (MDRD) 59 (>89) L 05/29/21 04:29 Glucose 120 mg/dL (70-100) H 05/29/21 04:29 Calcium 9.2 mg/dL (8.5-10.3) 05/29/21 04:29 Total Bilirubin 1.3 mg/dL (0.2-1.0) H 05/23/21 14:26 AST 30 IU/L (10-42) 05/23/21 14:26 ALT 20 IU/L (10-60) 05/23/21 14:26 Alkaline Phosphatase 71 IU/L (42-121) 05/23/21 14:26 Total Creatine Kinase 394 IU/L (22-269) H 05/23/21 14:26 B-Natriuretic Peptide 274 pg/mL (5-100) H 05/26/21 04:58 Total Protein 7.7 g/dL (6.7-8.2) 05/23/21 14:26 Albumin 4.1 g/dL (3.2-5.5) 05/23/21 14:26 Globulin 3.6 g/dL (2.1-4.2) 05/23/21 14:26 Albumin/Globulin Ratio 1.1 (1.0-2.2) 05/23/21 14:26 Lipase 36 U/L (22-51) 05/23/21 14:26 Urine Color YELLOW 05/27/21 05:30 Urine Clarity CLEAR (CLEAR) 05/27/21 05:30 Urine pH 5.5 PH (5.0-7.5) 05/27/21 05:30 Ur Specific [place] 1.010 (1.002-1.030) 05/27/21 05:30 Urine Protein NEGATIVE mg/dL (NEGATIVE) 05/27/21 05:30 Urine Glucose (UA) NEGATIVE mg/dL (NEGATIVE) 05/27/21 05:30 Urine Ketones NEGATIVE mg/dL (NEGATIVE) 05/27/21 05:30 Urine Occult Blood SMALL (NEGATIVE) H 05/27/21 05:30 Urine Nitrite NEGATIVE (NEGATIVE) 05/27/21 05:30 Urine Bilirubin NEGATIVE (NEGATIVE) 05/27/21 05:30 Urine Urobilinogen 0.2 (NORMAL) E.U./dL (NORMAL) 05/27/21 05:30 Ur Leukocyte Esterase NEGATIVE (NEGATIVE) 05/27/21 05:30 Urine RBC 6-10 /HPF (0-5) H 05/27/21 05:30 Urine WBC 0-3 /HPF (0-5) 05/27/21 05:30 Ur Squamous Epith Cells NONE SEEN (<= Few) 05/27/21 05:30 Urine Bacteria Rare /HPF (None Seen) 05/27/21 05:30 Urine Culture Comments NOT INDICATED 05/27/21 05:30 Nasal Adenovirus (PCR) NOT DETECTED 05/23/21 14:10 Nasal B. parapertussis DNA (PCR) NOT DETECTED 05/23/21 14:10 Nasal Coronavir 229E PCR NOT DETECTED 05/23/21 14:10 Nasal Coronavir HKU1 PCR NOT DETECTED 05/23/21 14:10 Nasal Coronavir NL63 PCR NOT DETECTED 05/23/21 14:10 Nasal Coronavir OC43 PCR NOT DETECTED 05/23/21 14:10 Nasal Enterovir/Rhinovir PCR NOT DETECTED 05/23/21 14:10 Nasal Influenza B PCR NOT DETECTED 05/23/21 14:10 Nasal Influenza A PCR NOT DETECTED 05/23/21 14:10 Nasal Parainfluen 1 PCR NOT DETECTED 05/23/21 14:10 Nasal Parainfluen 2 PCR NOT DETECTED 05/23/21 14:10 Nasal Parainfluen 3 PCR NOT DETECTED 05/23/21 14:10 Nasal Parainfluen 4 PCR NOT DETECTED 05/23/21 14:10 Nasal RSV (PCR) NOT DETECTED 05/23/21 14:10 Nasal B.pertussis DNA PCR NOT DETECTED 05/23/21 14:10 Nasal C.pneumoniae (PCR) NOT DETECTED 05/23/21 14:10 Jhony Human Metapneumo PCR NOT DETECTED 05/23/21 14:10 Nasal M.pneumoniae (PCR) NOT DETECTED 05/23/21 14:10 Nasal SARS-CoV-2 (PCR) NOT DETECTED 05/23/21 14:10 ABX Reporting Has patient been on IV antibiotics over the past 48 hours?: Yes
[2021-05-29] MEDS: SACCHAROMYCES BOULARDII 250 MG CAPSULE PO SCH ×2 (07:58→17:12)
[2021-05-29] MEDS: DOCUSATE SODIUM 250 MG CAPSULE PO SCH (07:58)
[2021-05-29] MEDS: ENOXAPARIN 40 MG/0.4 ML SYRINGE SUBQ SCH (07:58)
[2021-05-29] MEDS: CALCIUM CARBONATE CHEW 500 MG TABLET PO SCH ×2 (07:58→20:11)
[2021-05-29] MEDS: TAMSULOSIN 0.4 MG CAPSULE PO SCH (07:58)
[2021-05-29] MEDS: CHOLECALCIFEROL 25 MCG TABLET PO SCH (07:58)
[2021-05-29] MEDS ORDERED: POTASSIUM CHLORIDE 20 MEQ TABLET PO ONE (08:00)
[2021-05-29] MEDS: oxyCODONE 5 MG TABLET PO PRN ×3 (08:09→20:12)
[2021-05-29] MEDS: BUDESONIDE 0.5 MG/2 ML NEB INH SCH ×2 (09:22→21:00)
[2021-05-29] MEDS: IPRATROPIUM 0.2 MG/ML NEB INH SCH ×4 (09:22→21:00)
[2021-05-29] MEDS: SENNA 8.6 MG TABLET PO SCH (10:18)
[2021-05-29] MEDS: HYDROmorphone 0.5 MG/0.5 ML SYRINGE IVP PRN (17:15)
[2021-05-29] MEDS: ACETAMINOPHEN 325 MG TABLET PO PRN (20:11)
[2021-05-30] MEDS: SODIUM CHLORIDE FLUSH 0.9% 10 ML SYRINGE IVP SCH ×2 (00:30→08:37)
[2021-05-30 05:22] LABS: BASOPHILS # (AUTO) 0.1 10^3/uL (0.0-0.1); BASOPHILS % (AUTO) 0.9 %; EOSINOPHILS # (AUTO) 0.3 10^3/uL (0.0-0.7); EOSINOPHILS % (AUTO) 4.3 %; HCT - HEMATOCRIT 29.2 % (37.0-47.0); HGB - HEMOGLOBIN 9.5 g/dL (12.0-16.0); LYMPHOCYTES # (AUTO) 1.5 10^3/uL (1.5-3.5); LYMPHOCYTES % (AUTO) 21.5 %; MEAN CORPUSCULAR HEMOGLOBIN 30.4 pg (27.0-31.0); MEAN CORPUSCULAR HGB CONC 32.5 g/dL (32.0-36.0); MEAN CORPUSCULAR VOLUME 93.3 fL (81.0-99.0); MEAN PLATELET VOLUME 9.4 fL (7.9-10.8); MONOCYTES % (AUTO) 14.7 %; NEUTROPHILS # (AUTO) 4.1 10^3/uL (1.5-6.6); NEUTROPHILS % (AUTO) 57.7 %; PLT - PLATELET COUNT 308 10^3/uL (130-450); RED BLOOD COUNT 3.13 10^6/uL (4.20-5.40); RED CELL DISTRIBUTION WIDTH 12.7 % (12.0-15.0)
[2021-05-30 05:34] LABS: CALCIUM 9.4 mg/dL (8.5-10.3); CREATININE 0.9 mg/dL (0.4-1.0); POTASSIUM 4.1 mmol/L (3.5-5.0)
[2021-05-30] MEDS: PANTOPRAZOLE 40 MG TABLET PO SCH (06:28)
[2021-05-30] MEDS: oxyCODONE 5 MG TABLET PO PRN ×2 (06:36→12:26)
[2021-05-30] MEDS: IPRATROPIUM 0.2 MG/ML NEB INH SCH ×2 (07:04→15:28)
[2021-05-30] MEDS: BUDESONIDE 0.5 MG/2 ML NEB INH SCH (07:04)
--- NOTE | 2021-05-30 07:23 | PROVIDER PROGRESS NOTE ---
Assessment/Plan - Problem List (1) Hip fracture Qualifiers: Encounter type: initial encounter Fracture type: closed Laterality: left Qualified Code(s): S72.002A - Fracture of unspecified part of neck of left femur, initial encounter for closed fracture - Current Meds Current Meds: Current Medications Generic Name Dose Route Start Last Admin Trade Name Freq PRN Reason Stop Dose Admin Acetaminophen 650 mg 05/23/21 16:24 05/29/21 20:11 Acetaminophen 325 Mg Tablet PO 650 mg Q4HR PRN Administration Pain 1 to 4, or Fever Budesonide 0.5 mg 05/26/21 07:44 05/30/21 07:04 Budesonide 0.5 Mg/2 Ml Neb INH 0.5 mg RTBID MOE Administration Calcium Carbonate/Glycine 500 mg 05/24/21 21:00 05/29/21 20:11 Calcium Carbonate Chew 500 Mg Tablet PO 500 mg BID MOE Administration Cholecalciferol 50 mcg 05/25/21 09:00 05/29/21 07:58 Cholecalciferol 25 Mcg Tablet PO 50 mcg DAILY MOE Administration Docusate Sodium 250 - 500 mg 05/27/21 09:00 05/29/21 07:58 Docusate Sodium 250 Mg Capsule PO 250 mg DAILY MOE Administration Enoxaparin Sodium 40 mg 05/25/21 09:00 05/29/21 07:58 Enoxaparin 40 Mg/0.4 Ml Syringe SUBQ 40 mg DAILY MOE Administration Hydromorphone HCl 0.5 mg 05/27/21 18:42 05/29/21 17:15 Hydromorphone 0.5 Mg/0.5 Ml Syringe IVP 0.5 mg Q6H PRN Administration Pain 8 to 10 Ipratropium [place] 0.5 mg 05/24/21 19:00 05/30/21 07:04 Ipratropium 0.2 Mg/Ml Neb INH 0.5 mg RTQ4H MOE Administration Levalbuterol HCl 1.25 mg 05/24/21 18:42 05/28/21 07:26 Levalbuterol 1.25 Mg/3 Ml Neb INH 1.25 mg Q4H PRN Administration Shortness of Air/Wheezing Lorazepam 0.25 mg 05/25/21 15:55 05/26/21 10:48 Lorazepam 0.5 Mg Tablet PO 0.25 mg Q12H PRN Administration Anxiety Ondansetron HCl 4 mg 05/23/21 16:24 05/29/21 05:25 Ondansetron 4 Mg/2 Ml Vial IVP 4 mg Q6HR PRN Administration Nausea / Vomiting Oxycodone HCl 5 mg 05/27/21 18:42 05/30/21 06:36 Oxycodone 5 Mg Tablet PO 5 mg Q6HR PRN Administration Pain 5 to 7 Pantoprazole Sodium 40 mg 05/26/21 08:00 05/30/21 06:28 Pantoprazole 40 Mg Tablet PO 40 mg QDAC MOE Administration Saccharomyces Boulardii 250 mg 05/26/21 10:53 05/29/21 17:12 Saccharomyces Boulardii 250 Mg Capsule PO 250 mg BIDWM MOE Administration Senna 8.6 - 17.2 mg 05/27/21 09:00 05/29/21 10:18 Senna 8.6 Mg Tablet PO Not Given DAILY MOE Sodium Chloride 10 ml 05/23/21 16:24 05/28/21 19:54 Sodium Chloride Flush 0.9% 10 Ml Syringe IVP 10 ml PRN PRN Administration NEEDED PER PROVIDER ORDERS Sodium Chloride 10 ml 05/23/21 17:00 05/30/21 00:30 Sodium Chloride Flush 0.9% 10 Ml Syringe IVP 10 ml 0100,0900,1700 MOE Administration Tamsulosin HCl 0.4 mg 05/27/21 09:00 05/29/21 07:58 Tamsulosin 0.4 Mg Capsule PO 0.4 mg DAILY MOE Administration - Lab Result Fish Bone Diagrams: 05/30/21 04:43 05/30/21 04:43 - Additional Planning My Orders: My Active Orders 05/30/21 07:15 Alanis Continuation and Care [RC] QSHIFT Alanis Insertion [RC] QSHIFT Objective Vital Signs: Vital Signs - 24 hr 05/29/21 05/29/21 05/29/21 07:25 09:23 13:30 Temperature 36.6 C Heart Rate 84 89 Heart Rate [ 98 Brachial] Respiratory 22 20 23 Rate Blood Pressure 148/55 H [Left Brachial artery] O2 Saturation 90 L 05/29/21 05/29/21 05/29/21 16:26 16:59 21:00 Temperature 36.8 C Heart Rate 91 91 Heart Rate [ 92 Brachial] Respiratory 20 20 20 Rate Blood Pressure 126/33 L [Left Brachial artery] O2 Saturation 94 05/29/21 05/30/21 05/30/21 21:35 00:00 07:04 Temperature 36.4 C L Heart Rate 73 Heart Rate [ 84 Brachial] Respiratory 19 16 14 Rate Blood Pressure 160/58 H [Left Brachial artery] O2 Saturation 92 94 Oxygen O2 Source Nasal cannula I&O (Last 24 Hrs): Intake and Output Totals x24h 05/28/21 05/29/21 05/30/21 23:59 23:59 23:59 Intake Total 1456 1960 Output Total 2700 1675 1999 Balance -1244 285 -1999 - Results Results: Laboratory Results WBC 7.0 x10^3/uL (4.8-10.8) 05/30/21 04:43 RBC 3.13 10^6/uL (4.20-5.40) L 05/30/21 04:43 Hgb 9.5 g/dL (12.0-16.0) L 05/30/21 04:43 Hct 29.2 % (37.0-47.0) L 05/30/21 04:43 MCV 93.3 fL (81.0-99.0) 05/30/21 04:43 MCH 30.4 pg (27.0-31.0) 05/30/21 04:43 MCHC 32.5 g/dL (32.0-36.0) 05/30/21 04:43 RDW 12.7 % (12.0-15.0) 05/30/21 04:43 Plt Count 308 10^3/uL (130-450) 05/30/21 04:43 MPV 9.4 fL (7.9-10.8) 05/30/21 04:43 Neut # (Auto) 4.1 10^3/uL (1.5-6.6) 05/30/21 04:43 Lymph # (Auto) 1.5 10^3/uL (1.5-3.5) 05/30/21 04:43 [place] # (Auto) 1.0 10^3/uL (0.0-1.0) 05/30/21 04:43 Eos # (Auto) 0.3 10^3/uL (0.0-0.7) 05/30/21 04:43 Baso # (Auto) 0.1 10^3/uL (0.0-0.1) 05/30/21 04:43 Absolute Nucleated RBC 0.00 x10^3/uL 05/30/21 04:43 Total Counted 100 05/25/21 04:59 Band Neuts % (Manual) 3 % (0-10) 05/25/21 04:59 Abnorm Lymph % (Manual) 0 % 05/25/21 04:59 Nucleated RBC % 0.0 /100WBC 05/30/21 04:43 Neutrophils # (Manual) 11.4 10^3/uL (1.5-6.6) H 05/25/21 04:59 Lymphocytes # (Manual) 1.2 10^3/uL (1.5-3.5) L 05/25/21 04:59 Monocytes # (Manual) 0.8 10^3/uL (0.0-1.0) 05/25/21 04:59 Eosinophils # (Manual) 0.0 10^3/uL (0-0.7) 05/25/21 04:59 Basophils # (Manual) 0.0 10^3/uL (0-0.1) 05/25/21 04:59 Differential Comment MANUAL DIFFERENTIAL 05/25/21 04:59 Platelet Estimate NORMAL (130-450,000) (NORMAL) 05/25/21 04:59 RBC Morph Micro Appear NORMAL APPEARANCE (NORMAL) 05/25/21 04:59 PT 13.9 secs (9.9-12.6) H 05/24/21 05:04 INR 1.3 (0.8-1.2) H 05/24/21 05:04 Sodium 139 mmol/L (135-145) 05/30/21 04:43 Potassium 4.1 mmol/L (3.5-5.0) 05/30/21 04:43 Chloride 100 mmol/L (101-111) L 05/30/21 04:43 Carbon Dioxide 30 mmol/L (21-32) 05/30/21 04:43 Anion Gap 9.0 (6-13) 05/30/21 04:43 BUN 24 mg/dL (6-20) H 05/30/21 04:43 Creatinine 0.9 mg/dL (0.4-1.0) 05/30/21 04:43 Estimated GFR (MDRD) 59 (>89) L 05/30/21 04:43 Glucose 114 mg/dL (70-100) H 05/30/21 04:43 Calcium 9.4 mg/dL (8.5-10.3) 05/30/21 04:43 Total Bilirubin 1.3 mg/dL (0.2-1.0) H 05/23/21 14:26 AST 30 IU/L (10-42) 05/23/21 14:26 ALT 20 IU/L (10-60) 05/23/21 14:26 Alkaline Phosphatase 71 IU/L (42-121) 05/23/21 14:26 Total Creatine Kinase 394 IU/L (22-269) H 05/23/21 14:26 B-Natriuretic Peptide 274 pg/mL (5-100) H 05/26/21 04:58 Total Protein 7.7 g/dL (6.7-8.2) 05/23/21 14:26 Albumin 4.1 g/dL (3.2-5.5) 05/23/21 14:26 Globulin 3.6 g/dL (2.1-4.2) 05/23/21 14:26 Albumin/Globulin Ratio 1.1 (1.0-2.2) 05/23/21 14:26 Lipase 36 U/L (22-51) 05/23/21 14:26 Urine Color YELLOW 05/27/21 05:30 Urine Clarity CLEAR (CLEAR) 05/27/21 05:30 Urine pH 5.5 PH (5.0-7.5) 05/27/21 05:30 Ur Specific [place] 1.010 (1.002-1.030) 05/27/21 05:30 Urine Protein NEGATIVE mg/dL (NEGATIVE) 05/27/21 05:30 Urine Glucose (UA) NEGATIVE mg/dL (NEGATIVE) 05/27/21 05:30 Urine Ketones NEGATIVE mg/dL (NEGATIVE) 05/27/21 05:30 Urine Occult Blood SMALL (NEGATIVE) H 05/27/21 05:30 Urine Nitrite NEGATIVE (NEGATIVE) 05/27/21 05:30 Urine Bilirubin NEGATIVE (NEGATIVE) 05/27/21 05:30 Urine Urobilinogen 0.2 (NORMAL) E.U./dL (NORMAL) 05/27/21 05:30 Ur Leukocyte Esterase NEGATIVE (NEGATIVE) 05/27/21 05:30 Urine RBC 6-10 /HPF (0-5) H 05/27/21 05:30 Urine WBC 0-3 /HPF (0-5) 05/27/21 05:30 Ur Squamous Epith Cells NONE SEEN (<= Few) 05/27/21 05:30 Urine Bacteria Rare /HPF (None Seen) 05/27/21 05:30 Urine Culture Comments NOT INDICATED 05/27/21 05:30 Nasal Adenovirus (PCR) NOT DETECTED 05/23/21 14:10 Nasal B. parapertussis DNA (PCR) NOT DETECTED 05/23/21 14:10 Nasal Coronavir 229E PCR NOT DETECTED 05/23/21 14:10 Nasal Coronavir HKU1 PCR NOT DETECTED 05/23/21 14:10 Nasal Coronavir NL63 PCR NOT DETECTED 05/23/21 14:10 Nasal Coronavir OC43 PCR NOT DETECTED 05/23/21 14:10 Nasal Enterovir/Rhinovir PCR NOT DETECTED 05/23/21 14:10 Nasal Influenza B PCR NOT DETECTED 05/23/21 14:10 Nasal Influenza A PCR NOT DETECTED 05/23/21 14:10 Nasal Parainfluen 1 PCR NOT DETECTED 05/23/21 14:10 Nasal Parainfluen 2 PCR NOT DETECTED 05/23/21 14:10 Nasal Parainfluen 3 PCR NOT DETECTED 05/23/21 14:10 Nasal Parainfluen 4 PCR NOT DETECTED 05/23/21 14:10 Nasal RSV (PCR) NOT DETECTED 05/23/21 14:10 Nasal B.pertussis DNA PCR NOT DETECTED 05/23/21 14:10 Nasal C.pneumoniae (PCR) NOT DETECTED 05/23/21 14:10 Jhony Human Metapneumo PCR NOT DETECTED 05/23/21 14:10 Nasal M.pneumoniae (PCR) NOT DETECTED 05/23/21 14:10 Nasal SARS-CoV-2 (PCR) NOT DETECTED 05/23/21 14:10
[2021-05-30] MEDS: CHOLECALCIFEROL 25 MCG TABLET PO SCH (08:36)
[2021-05-30] MEDS: ENOXAPARIN 40 MG/0.4 ML SYRINGE SUBQ SCH (08:36)
[2021-05-30] MEDS: DOCUSATE SODIUM 250 MG CAPSULE PO SCH (08:36)
[2021-05-30] MEDS: TAMSULOSIN 0.4 MG CAPSULE PO SCH (08:36)
[2021-05-30] MEDS: CALCIUM CARBONATE CHEW 500 MG TABLET PO SCH (08:36)
[2021-05-30] MEDS: SACCHAROMYCES BOULARDII 250 MG CAPSULE PO SCH (08:36)
[2021-05-30] MEDS: SENNA 8.6 MG TABLET PO SCH (08:36)
--- NOTE | 2021-05-30 11:45 | DISCHARGE SUMMARY ---
Discharge Summary Admit Date: 05/23/21 Discharge Date: 05/30/21 Discharging Provider: Kacey Baires Primary Care Provider: Rubina Bosch Code Status: Do Not Attempt Resuscitation Condition at Discharge: Stable Discharge Disposition: SNF DC/Xfer Discharge [facility] Name: [facility] - DIAGNOSES Admission Diagnoses: Left hip fracture COPD Urinary retention Discharge Diagnoses with Status of Each Condition: Left hip fracture: Acute. S/P surgery. Going to SNF for Rehab COPD: Chronic. Supplemental Oxygen supplied upon discharge Urinary retention: Acute. Alanis catheter in place. Tamsulosin. Follow up with Urology in the out patient setting - HPI History of Present Illness: This is a 89-year-old female with no significant past medical history who pres ents today complaining of left-sided hip pain. She states she was walking at her home yesterday when she went to her living room which is 1 step down. She fell when trying to walk down the steps and landed on her left side. Her friend came to check on her today and that is when EMS was called. The patient denies any syncope, loss of consciousness, chest pain, dyspnea. Vel states she may have had a little fever yesterday morning but otherwise felt well. She normally ambulates with a cane and can go up a flight of stairs without any chest pain. She reports a prior history of tachycardia for which she had an ablation. This sounds if she had a history of atrial fibrillation. She denies a history of heart failure, stroke, hypertension, diabetes. She currently takes no medications. She states her pain is currently about a 5 out of 10. She has no numbness in the left leg. We discussed goals of care and she would like to be a DNR. - HOSPITAL COURSE Hospital Course: Patient was admitted on 05/23/21 after presenting with complaint of left-sided hip pain. She had a mechanical fall at home. Work-up showed a left hip fracture. She underwent surgery on 05/24/21. After surgery She required as much as 6 L of oxygen via nasal cannula to keep her oxygen saturation at 90% or greater. She received empiric antibiotics for potential pneumonia, and was treated with IV Lasix for pulmonary edema. Her oxygen requirement steadily decreased and by the time of discharge She was needing 2 L of oxygen via nasal cannula to keep her oxygen level between 92 and 94%. Patient has history of COPD. For over 60 years. She will be discharged with supplemental oxygen to use as needed. She was evaluated by PT/OT and determined to benefit from rehab at the snf facility. She was accepted to undergo rehab at [facility]. During her hospital stay she also had some urinary retention. She was given Flomax which will be continued and has a Alanis catheter in place. She may follow-up with urology in the outpatient setting regarding urinary retention. She is being discharged in stable condition. - ALLERGIES Allergies/Adverse Reactions: Allergies Allergy/AdvReac Type Severity Reaction Status Date / Time Sulfa (Sulfonamide Allergy Unknown Verified 05/23/21 14:22 Antibiotics) onion AdvReac Mild Cramps Verified 05/30/21 09:22 morphine AdvReac Nausea Verified 05/23/21 14:22 - MEDICATIONS Home Medications: Ambulatory Orders Medication Instructions Recorded Confirmed Tamsulosin [Flomax] 0.4 mg PO DAILY 7 Days #7 cap 05/30/21 oxyCODONE [Roxicodone] 5 mg PO Q6HR PRN 5 Days #20 tablet 05/30/21 - PHYSICAL EXAM AT DISCHARGE General Appearance: positive: Alert, Mild distress Eyes Bilateral: positive: PERRL ENT: positive: No signs of dehydration Neck: positive: No JVD, Trachea midline Respiratory: positive: Chest non-tender, No respiratory distress, Breath sounds nml. negative: Wheezes, Rales, Rhonchi Cardiovascular: positive: Regular rate & rhythm, No murmur Abdomen: positive: Non-tender, No organomegaly, Nml bowel sounds, No distention. negative: Guarding, Rebound Back: positive: Nml inspection Skin: positive: Color nml, Warm, Dry, Skin rash (On back.) Extremities: positive: Non-tender, Full ROM, Nml appearance, No pedal edema Neurologic/Psychiatric: positive: Oriented x3, Motor nml, Mood/affect nml - LABS Result Diagrams: 05/30/21 04:43 05/30/21 04:43 - TIME SPENT Time Spent in Discharge (Minutes): 20
--- NOTE | 2021-05-30 11:51 | Discharge Plan ---
"Discharge Plan for SNF / [facility] - Discharge Plan And Transition Orders Problem Reviewed?: Yes Disposition: 03 SNF DC/Xfer Condition: Stable Allergies and Adverse Reactions: Allergies Allergy/AdvReac Type Severity Reaction Status Date / Time Sulfa (Sulfonamide Allergy Unknown Verified 05/23/21 14:22 Antibiotics) onion AdvReac Mild Cramps Verified 05/30/21 09:22 morphine AdvReac Nausea Verified 05/23/21 14:22 Health Concerns: Patient was admitted on 05/23/21 after presenting with complaint of left-sided hip pain. She had a mechanical fall at home. Work-up showed a left hip fracture. She underwent surgery on 05/24/21. After surgery She required as much as 6 L of oxygen via nasal cannula to keep her oxygen saturation at 90% or greater. She received empiric antibiotics for potential pneumonia, and was treated with IV Lasix for pulmonary edema. Her oxygen requirement steadily decreased and by the time of discharge She was needing 2 L of oxygen via nasal cannula to keep her oxygen level between 92 and 94%. Patient has history of COPD. For over 60 years. She will be discharged with supplemental oxygen to use as needed. She was evaluated by PT/OT and determined to benefit from rehab at the fpc facility. She was accepted to undergo rehab at [facility]. During her hospital stay she also had some urinary retention. She was given Flomax which will be continued and has a Alanis catheter in place. She may follow-up with urology in the outpatient setting regarding urinary retention. She is being discharged in stable condition. The above plan was discussed with the patient, she expressed understanding and is agreeable to the plan. - SNF / [facility] Transition Orders Admit to (Facility): [facility] Discharge Diagnosis: Hip fracture COPD Urinary retention Medicare Certification Statement: I certify that Post Hospital fpc care is medically necessary on a co ntinuing basis for any of the conditions for which she/he is receiving care during hospitalization. Notify PCP of admission and forward orders to primary provider for signature. Weight on admission and: Weekly Call PCP immediately if weight increases by: 3 kg Other Notification Orders: Call PCP immediately if patient develops dyspnea, chest pain/tightness or edema. House Bowel Program: Yes Additional Bowel Program Orders: If no BM after 2 days, nurse may give M.O.M. 30ml PO PRN and/or ducolax Supp 1 TX and/or REGINALD 250mg P.O., and/or senna 1-2 tabs PO. On day 3 nurse may give repeat above order until residents constipation is resolved. Medication Orders: PLEASE REFER TO THE DISCHARGE MEDICATION LIST. - Medications New Prescriptions: oxyCODONE [Roxicodone] 5 mg PO Q6HR PRN 5 Days #20 tablet PRN Reason: Pain 5 to 7 Tamsulosin [Flomax] 0.4 mg PO DAILY 7 Days #7 cap - Diet Type: Geriatric Texture: Regular Liquids: Thin May have monthly special meal: Yes - Therapies | Activity Therapy: Evaluation | Treat if indicated: PT, OT Rehabilitation Potential: Return to independent living Activity: Per Therapy Weight Bearing: Per therapy Assistance Devices: Walker Follow Up: With orthopedic surgery in clinic as scheduled"
[2021-05-30] MEDS: LORazepam 0.5 MG TABLET PO PRN (12:26)
[2021-05-30 13:16] LABS: B. PARAPERTUSSIS- RESP PCR PAN NOT DETECTED; B. PERTUSSIS- RESP PCR PANEL NOT DETECTED; C. PNEUMONIAE- RESP PCR PANEL NOT DETECTED; CORONAVIRUS 229E-RESP PCR NOT DETECTED; CORONAVIRUS HKU1-RESP PCR NOT DETECTED; CORONAVIRUS NL63-RESP PCR NOT DETECTED; CORONAVIRUS OC43-RESP PCR NOT DETECTED; HUMAN METAPNEUMOVIRUS NOT DETECTED; INFLUENZA A- RESP PCR PANEL NOT DETECTED; INFLUENZA B - RESP PCR PANEL NOT DETECTED; M. PNEUMONIAE- RESP PCR PANEL NOT DETECTED; PARAINFLUENZA VIRUS 1 NOT DETECTED; PARAINFLUENZA VIRUS 2 NOT DETECTED; PARAINFLUENZA VIRUS 3 NOT DETECTED; PARAINFLUENZA VIRUS 4 NOT DETECTED; RHINOVIRUS/ENTEROVIRUS NOT DETECTED; RSV- RESP PCR PANEL NOT DETECTED; SARS-CoV-2 -RESP PCR PANEL NOT DETECTED
[2021-05-30 14:37] VITALS: BP 129/57
== END 2021-05-30 15:40 | DRG 521 ==
LOC: ED 14:18 → MS2 16:24
PROVIDERS: ADMIT Internal Medicine; ATTEND Internal Medicine
PROC: 0SRS0J9 Replacement of Left Hip Joint, Femoral Surface with Synthetic Substitute, Cemented, Open Approach (ICD-10-PCS; principal; 2021-05-24 12:15)
DX: S72.002A Fracture of unspecified part of neck of left femur, initial encounter for closed fracture (principal); W01.0XXA Fall on same level from slipping, tripping and stumbling without subsequent striking against object, initial encounter; Y92.009 Unspecified place in unspecified non-institutional (private) residence as the place of occurrence of the external cause; K21.9 Gastro-esophageal reflux disease without esophagitis; J18.9 Pneumonia, unspecified organism; J96.21 Acute and chronic respiratory failure with hypoxia; N17.9 Acute kidney failure, unspecified; J43.9 Emphysema, unspecified; R33.9 Retention of urine, unspecified; I48.91 Unspecified atrial fibrillation; R00.0 Tachycardia, unspecified; I50.9 Heart failure, unspecified; Z66 Do not resuscitate; Z87.891 Personal history of nicotine dependence; W10.8XXA Fall (on) (from) other stairs and steps, initial encounter; Y92.008 Other place in unspecified non-institutional (private) residence as the place of occurrence of the external cause; Z20.822 Contact with and (suspected) exposure to COVID-19
CPT/HCPCS: 36415; 70450; 71045; 72170; 73502; 76770; 80048; 80053; 81001; 82550; 83690; 83880; 85025; 85610; 87631; 87633; 93005; 94640; 94761; 97162; 97166; 97530; 99283; 99285; A9270; C1713; J1170; J1650; J3370; J7120; J7626; V2787; 0202U; 87086

== ENCOUNTER 2021-06-22 13:33 | Outpatient (CLI) | payer MEDICARE, OTHER ==
[2021-06-22 16:25] LABS: BILIRUBIN,URINE NEGATIVE (NEGATIVE); GLUCOSE, URINE (UA) NEGATIVE (NEGATIVE); KETONES,URINE (UA) NEGATIVE (NEGATIVE); LEUKOCYTE ESTERASE, URINE SMALL (NEGATIVE); NITRITE,URINE NEGATIVE (NEGATIVE); OCCULT BLOOD,URINE LARGE (NEGATIVE); PH,URINE 6.5 PH (5.0-7.5); PROTEIN,URINE 100 mg/dL (NEGATIVE); UROBILINOGEN,URINE 0.2 (NORMAL) E.U./dL (NORMAL)
[2021-06-22 16:27] LABS: CLARITY,URINE HAZY (CLEAR)
[2021-06-22 16:42] LABS: BACTERIA,URINE Few /HPF (None Seen); SQUAMOUS EPITHELIAL CELL,UR RARE Squamous (<= Few); WBC,URINE >25 /HPF (0-5)
== END 2021-06-22 23:59 | disposition home or self-care (01) ==
LOC: LAB.R 13:33
PROVIDERS: ATTEND Internal Medicine
DX: N39.0 Urinary tract infection, site not specified (principal)
CPT/HCPCS: 81001; 81003; 87086

== ENCOUNTER 2021-07-21 06:00 | Outpatient (CLI) | payer MEDICARE, OTHER ==
--- NOTE | 2021-07-21 18:21 | XRAY Report ---
PROCEDURE: Hip 2 View LT INDICATIONS: LEFT HIP ARTHROPLASTY TECHNIQUE: 3 views of the hip were acquired. COMPARISON: 05/24/2021 FINDINGS: Bones: Patient is status post prior left total hip arthroplasty. Left hip alignment is unchanged fro m prior study. No gross hardware loosening or failure. No fractures or dislocations. No suspicious b tamika lesions. The visualized pelvic ring appears intact. Soft tissues: No suspicious soft tissue calcifications or masses. IMPRESSION: Stable and anatomic left hip alignment. No evidence of hardware complication. No fracture or dislocat ion. Reviewed by: Boris Barth MD on 07/21/2021 6:19 PM PDT Approved by: Boris Barth MD on 07/21/2021 6:19 PM PDT Station ID: [id number]
== END 2021-07-21 23:59 | disposition home or self-care (01) ==
LOC: DI.WOS 06:00
PROVIDERS: ATTEND Orthopaedic Surgery
DX: Z96.642 Presence of left artificial hip joint (principal)

== ENCOUNTER 2021-08-01 12:18 | Outpatient (CLI) | payer MEDICARE, OTHER | END 2021-08-01 12:19 | disposition critical access hospital (66) | LOC: EMS 12:18 | DX: T83.9XXA Unspecified complication of genitourinary prosthetic device, implant and graft, initial encounter (principal) | CPT/HCPCS: A0425; A0429 ==

== ENCOUNTER 2021-08-01 12:24 | Emergency (ER) | payer MEDICARE, OTHER ==
--- NOTE | 2021-08-01 12:38 | ED Physician Documentation ---
PD HPI FEMALE - Stated complaint Stated Complaint: CATH ISSUE - History obtained from History obtained from: Patient - Additional information Additional information: 89-year-old woman presents by ambulance from local senior care. She had a femur fracture couple of months ago. She was preparing to have her Alanis removed but they could not remove it at the senior care. 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 Cardiovascular: Other HEENT: Tonsil/Adenoidectomy - Present Medications Home Medications: Ambulatory Orders Medication Instructions Recorded Confirmed Tamsulosin [Flomax] 0.4 mg PO DAILY 7 Days #7 cap 05/30/21 oxyCODONE [Roxicodone] 5 mg PO Q6HR PRN 5 Days #20 tablet 05/30/21 - Allergies Allergies/Adverse Reactions: Allergies Allergy/AdvReac Type Severity Reaction Status Date / Time Sulfa (Sulfonamide Allergy Unknown Verified 05/23/21 14:22 Antibiotics) onion AdvReac Mild Cramps Verified 05/30/21 09:22 morphine AdvReac Nausea Verified 05/23/21 14:22 - Social History Does the pt smoke?: No Smoking Status: Never smoker Does the pt drink ETOH?: Yes Does the pt have substance abuse?: No - Immunizations Immunizations are current?: Yes - POLST Patient has POLST: No PD ED PE NORMAL - Vitals Vital signs reviewed: Yes - General General: Alert and oriented X 3, No acute distress - Female Female : Other (Alanis is in place with the balloon deflated. I tried to inflate the balloon slightly which was exquisitely painful for her suggesting that it was not in the bladder. The balloon was deflated again and easily removed with a quick tug.) - Neuro Neuro: Alert and oriented X 3, Normal speech Results - Vitals Vitals: Oxygen O2 Source Nasal cannula Departure - Departure Disposition: 01 Home, Self Care Clinical Impression: Alanis catheter problem Qualifiers: Encounter type: initial encounter Qualified Code(s): T83.9XXA - Unspecified complication of genitourinary prosthetic device, implant and graft, initial encounter Condition: Good Record reviewed to determine appropriate education?: Yes Comments: Note that the Alanis was easily removed at the bedside Return if unable to urinate or for other new or concerning symptoms.
[2021-08-01 12:45] VITALS: BP 187/80
== END 2021-08-01 13:02 | disposition home or self-care (01) ==
LOC: EDUNIT# → ED 12:24
DX: T83.028A Displacement of other urinary catheter, initial encounter (principal); Y84.9 Medical procedure, unspecified as the cause of abnormal reaction of the patient, or of later complication, without mention of misadventure at the time of the procedure
CPT/HCPCS: 99282; 99283

== ENCOUNTER 2021-08-01 12:46 | Outpatient (CLI) | payer MEDICARE, OTHER | END 2021-08-01 12:47 | disposition home or self-care (01) | LOC: EMS 12:46 | PROVIDERS: ATTEND Emergency Medicine | DX: Z74.01 Bed confinement status (principal) | CPT/HCPCS: A0425; A0428 ==

== ENCOUNTER 2021-08-11 08:00 | Outpatient (CLI) | payer MEDICARE, OTHER ==
[2021-08-11 06:32] LABS: BILIRUBIN,URINE NEGATIVE (NEGATIVE); GLUCOSE, URINE (UA) NEGATIVE (NEGATIVE); KETONES,URINE (UA) NEGATIVE (NEGATIVE); LEUKOCYTE ESTERASE, URINE SMALL (NEGATIVE); NITRITE,URINE POSITIVE (NEGATIVE); OCCULT BLOOD,URINE NEGATIVE (NEGATIVE); PH,URINE 6.5 PH (5.0-7.5); PROTEIN,URINE NEGATIVE (NEGATIVE); UROBILINOGEN,URINE 0.2 (NORMAL) E.U./dL (NORMAL)
[2021-08-11 06:45] LABS: CLARITY,URINE HAZY (CLEAR); RBC,URINE 0-5 /HPF (0-5); SQUAMOUS EPITHELIAL CELL,UR RARE Squamous (<= Few)
[2021-08-11 06:46] LABS: BACTERIA,URINE Moderate /HPF (None Seen); CRYSTALS,URINE 11-25 Ca Oxalate /LPF
== END 2021-08-11 23:59 | disposition home or self-care (01) ==
LOC: LAB.R 08:00
PROVIDERS: ATTEND Hospitalist
DX: N39.0 Urinary tract infection, site not specified (principal)
CPT/HCPCS: 81001; 87077; 87086; 87181

== ENCOUNTER 2021-08-26 11:37 | Outpatient (CLI) | payer MEDICARE, OTHER | END 2021-08-26 11:38 | disposition home or self-care (01) | LOC: LAB 11:37 | PROVIDERS: ATTEND Hospitalist | DX: E40 Kwashiorkor (principal) | CPT/HCPCS: 36415; 84134 ==

== ENCOUNTER 2021-09-13 08:00 | Outpatient (CLI) | payer MEDICARE, OTHER ==
[2021-09-13 16:02] LABS: BILIRUBIN,URINE NEGATIVE (NEGATIVE); GLUCOSE, URINE (UA) NEGATIVE (NEGATIVE); KETONES,URINE (UA) NEGATIVE (NEGATIVE); LEUKOCYTE ESTERASE, URINE NEGATIVE (NEGATIVE); NITRITE,URINE NEGATIVE (NEGATIVE); OCCULT BLOOD,URINE NEGATIVE (NEGATIVE); PH,URINE 6.5 PH (5.0-7.5); PROTEIN,URINE NEGATIVE (NEGATIVE); UROBILINOGEN,URINE 0.2 (NORMAL) E.U./dL (NORMAL)
[2021-09-13 16:06] LABS: CLARITY,URINE CLEAR (CLEAR)
[2021-09-13 16:20] LABS: BACTERIA,URINE None Seen /HPF (None Seen); RBC,URINE None Seen /HPF (0-5); SQUAMOUS EPITHELIAL CELL,UR FEW Squamous (<= Few); WBC,URINE 0-3 /HPF (0-5)
== END 2021-09-13 23:59 | disposition home or self-care (01) ==
LOC: LAB.R 08:00
PROVIDERS: ATTEND Internal Medicine
DX: R35.1 Nocturia (principal); R32 Unspecified urinary incontinence
CPT/HCPCS: 81001; 87086

== ENCOUNTER 2021-09-13 15:02 | Outpatient (CLI) | payer MEDICARE, OTHER ==
--- NOTE | 2021-09-13 18:33 | Ultrasound Report ---
PROCEDURE: Duplex Ext Veins Bilateral INDICATIONS: Swelling TECHNIQUE: Real-time imaging, as well as color and pulse Doppler interrogation, were performed of the deep veins of both legs from the inguinal ligament to the popliteal fossa. COMPARISON: None FINDINGS: Study is limited by patient body habitus The deep veins are normally compressible, and free of intraluminal thrombus. Color and pulse Doppler demonstrate normal phasic intravascular flow. There is normal augmentation response to distal compr ession maneuver. Incidental note is made of a small possible right knee joint effusion IMPRESSION: No evidence of deep venous thrombosis, bilateral lower extremities Incidental right knee joint effusion Reviewed by: Kiko Spivey MD on 09/13/2021 5:32 PM ANITA Approved by: Kiko Spivey MD on 09/13/2021 5:32 PM AKGINI Station ID: [id number]
== END 2021-09-13 15:03 | disposition home or self-care (01) ==
LOC: DI 15:02
PROVIDERS: ATTEND Internal Medicine
DX: R60.0 Localized edema (principal); R20.0 Anesthesia of skin; R35.1 Nocturia; R32 Unspecified urinary incontinence
CPT/HCPCS: 81001; 87086; 93970

== ENCOUNTER 2021-10-20 08:00 | Outpatient (CLI) | payer MEDICARE, OTHER ==
[2021-10-20 16:09] LABS: BILIRUBIN,URINE NEGATIVE (NEGATIVE); GLUCOSE, URINE (UA) NEGATIVE (NEGATIVE); KETONES,URINE (UA) NEGATIVE (NEGATIVE); LEUKOCYTE ESTERASE, URINE NEGATIVE (NEGATIVE); NITRITE,URINE NEGATIVE (NEGATIVE); OCCULT BLOOD,URINE NEGATIVE (NEGATIVE); PROTEIN,URINE NEGATIVE (NEGATIVE); UROBILINOGEN,URINE 0.2 (NORMAL) E.U./dL (NORMAL)
[2021-10-20 16:26] LABS: CLARITY,URINE CLEAR (CLEAR)
[2021-10-20 17:13] LABS: RBC,URINE None Seen /HPF (0-5); SQUAMOUS EPITHELIAL CELL,UR RARE Squamous (<= Few); WBC,URINE 0-3 /HPF (0-5)
[2021-10-20 17:14] LABS: BACTERIA,URINE Few /HPF (None Seen)
== END 2021-10-20 23:59 | disposition home or self-care (01) ==
LOC: LAB 08:00
PROVIDERS: ATTEND Internal Medicine
DX: R39.9 Unspecified symptoms and signs involving the genitourinary system (principal)
CPT/HCPCS: 81001; 87086

== ENCOUNTER 2021-10-20 14:31 | Outpatient (CLI) | payer MEDICARE, OTHER ==
[2021-10-20 15:25] LABS: THYROID STIMULATING HORMONE 2.38 uIU/mL (0.34-5.60)
[2021-10-20 15:36] LABS: BASOPHILS # (AUTO) 0.1 10^3/uL (0.0-0.1); BASOPHILS % (AUTO) 1.4 %; EOSINOPHILS % (AUTO) 0.7 %; HCT - HEMATOCRIT 48.9 % (37.0-47.0); HGB - HEMOGLOBIN 15.6 g/dL (12.0-16.0); LYMPHOCYTES # (AUTO) 1.7 10^3/uL (1.5-3.5); LYMPHOCYTES % (AUTO) 28.4 %; MEAN CORPUSCULAR HEMOGLOBIN 28.9 pg (27.0-31.0); MEAN CORPUSCULAR HGB CONC 31.9 g/dL (32.0-36.0); MEAN CORPUSCULAR VOLUME 90.7 fL (81.0-99.0); MEAN PLATELET VOLUME 9.6 fL (7.9-10.8); MONOCYTES # (AUTO) 0.5 10^3/uL (0.0-1.0); MONOCYTES % (AUTO) 9.1 %; NEUTROPHILS # (AUTO) 3.5 10^3/uL (1.5-6.6); NEUTROPHILS % (AUTO) 60.1 %; PLT - PLATELET COUNT 296 10^3/uL (130-450); RED BLOOD COUNT 5.39 10^6/uL (4.20-5.40); RED CELL DISTRIBUTION WIDTH 13.9 % (12.0-15.0); WHITE BLOOD COUNT 5.8 x10^3/uL (4.8-10.8)
[2021-10-20 15:42] LABS: ALBUMIN 4.6 g/dL (3.2-5.5); ALBUMIN/GLOBULIN RATIO 1.4 (1.0-2.2); BILIRUBIN,TOTAL 0.9 mg/dL (0.2-1.0); CREATININE 0.8 mg/dL (0.4-1.0); POTASSIUM 4.1 mmol/L (3.5-5.0); TOTAL PROTEIN 7.8 g/dL (6.7-8.2)
== END 2021-10-20 14:32 | disposition home or self-care (01) ==
LOC: LAB 14:31
PROVIDERS: ATTEND Internal Medicine
DX: I71.4 Abdominal aortic aneurysm, without rupture (principal); R42 Dizziness and giddiness; R60.9 Edema, unspecified; R53.83 Other fatigue; M25.559 Pain in unspecified hip; R35.1 Nocturia; R20.0 Anesthesia of skin; L98.9 Disorder of the skin and subcutaneous tissue, unspecified; R32 Unspecified urinary incontinence; R39.9 Unspecified symptoms and signs involving the genitourinary system
CPT/HCPCS: 36415; 80053; 81001; 82607; 83880; 84443; 85025; 87086

== ENCOUNTER 2021-11-09 10:37 | Outpatient (CLI) | payer MEDICARE, OTHER ==
--- NOTE | 2021-11-09 16:39 | Ultrasound Report ---
PROCEDURE: Retroperitoneal Limited INDICATIONS: AAA TECHNIQUE: Real-time scanning was performed of the retroperitoneal organs, with image documentation. COMPARISON: 05/27/2021 ultrasound. FINDINGS: Proximal dominant aorta measures 27 mm diameter. Mid abdominal aorta measures 32 mm diameter. Distal abdominal aorta measures 35 mm diameter. Right common iliac artery measures 12 mm diameter. Left comm on iliac artery measures 13 mm diameter. 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 Reviewed by: Julianne Carbone MD on 11/09/2021 4:37 PM PDT Approved by: Julianne Carbone MD on 11/09/2021 4:37 PM PDT Station ID: [id number]
== END 2021-11-09 10:38 | disposition home or self-care (01) ==
LOC: DI 10:37
PROVIDERS: ATTEND Internal Medicine
DX: Z13.6 Encounter for screening for cardiovascular disorders (principal); I71.4 Abdominal aortic aneurysm, without rupture

== ENCOUNTER 2021-11-10 08:00 | Outpatient (CLI) | payer MEDICARE, OTHER ==
[2021-11-10 16:10] LABS: BILIRUBIN,URINE NEGATIVE (NEGATIVE); GLUCOSE, URINE (UA) NEGATIVE (NEGATIVE); KETONES,URINE (UA) NEGATIVE (NEGATIVE); LEUKOCYTE ESTERASE, URINE NEGATIVE (NEGATIVE); NITRITE,URINE NEGATIVE (NEGATIVE); OCCULT BLOOD,URINE NEGATIVE (NEGATIVE); PH,URINE 6.5 PH (5.0-7.5); PROTEIN,URINE NEGATIVE (NEGATIVE); UROBILINOGEN,URINE 0.2 (NORMAL) E.U./dL (NORMAL)
[2021-11-10 16:15] LABS: CLARITY,URINE CLEAR (CLEAR)
[2021-11-10 17:21] LABS: BACTERIA,URINE Rare /HPF (None Seen); RBC,URINE None Seen /HPF (0-5); SQUAMOUS EPITHELIAL CELL,UR FEW Squamous (<= Few); WBC,URINE 0-3 /HPF (0-5)
== END 2021-11-10 23:59 | disposition home or self-care (01) ==
LOC: LAB.R 08:00
PROVIDERS: ATTEND Internal Medicine
DX: R39.9 Unspecified symptoms and signs involving the genitourinary system (principal)
CPT/HCPCS: 81001; 87086

== ENCOUNTER 2022-01-02 08:00 | Outpatient (CLI) | payer MEDICARE, OTHER ==
[2022-01-02 17:01] LABS: BILIRUBIN,URINE NEGATIVE (NEGATIVE); GLUCOSE, URINE (UA) NEGATIVE (NEGATIVE); KETONES,URINE (UA) NEGATIVE (NEGATIVE); LEUKOCYTE ESTERASE, URINE NEGATIVE (NEGATIVE); NITRITE,URINE NEGATIVE (NEGATIVE); OCCULT BLOOD,URINE NEGATIVE (NEGATIVE); PROTEIN,URINE NEGATIVE (NEGATIVE); UROBILINOGEN,URINE 0.2 (NORMAL) E.U./dL (NORMAL)
[2022-01-02 19:02] LABS: CLARITY,URINE HAZY (CLEAR)
[2022-01-02 19:03] LABS: AMORPHOUS SEDIMENT,UR Rare /LPF; BACTERIA,URINE Rare /HPF (None Seen); RBC,URINE 0-5 /HPF (0-5); SQUAMOUS EPITHELIAL CELL,UR RARE Squamous (<= Few); WBC,URINE 0-3 /HPF (0-5)
== END 2022-01-02 23:59 | disposition home or self-care (01) ==
LOC: LAB.R 08:00
PROVIDERS: ATTEND Internal Medicine
DX: R39.9 Unspecified symptoms and signs involving the genitourinary system (principal)
CPT/HCPCS: 81001; 87086

== ENCOUNTER 2022-01-06 17:57 | Outpatient (CLI) | payer MEDICARE, OTHER | END 2022-01-06 17:58 | disposition EMS.NT | LOC: EMS 17:57 | DX: Z03.89 Encounter for observation for other suspected diseases and conditions ruled out (principal) ==